=== PATIENT | male | born 1950 | race Caucasian/White ===

== ENCOUNTER → 2017-01-27 | Outpatient (CLI) | payer OTHER ==
[~2017-01-27] MED LIST: ATOR-22 PO; OMEP40CA PO
--- NOTE | 2017-01-27 09:38 | DIAGNOSTIC IMAGING REPORT ---
ABDOMINAL AORTIC ULTRASOUND CLINICAL HISTORY: AORTIC ANEURYSM COMPARISON STUDY: 01/25/2016 FINDINGS: There is an infrarenal abdominal aortic aneurysm measuring 3.5 x 3.5 cm in AP and transverse diameter. This remains unchanged in size when compared the preceding study. There is no evidence of aneurysmal iliac dilatation. IMPRESSION: No significant change in the size of the infrarenal abdominal aortic aneurysm which currently measures 3.5 cm in diameter Electronically signed by: Polo Paniagua M.D. 01/27/2017 9:36 AM Dictated Date/Time: 01/27/2017 9:35 AM
== END | disposition home or self-care (01) ==
LOC: C.ULTR 08:39
PROVIDERS: ATTEND Internal Medicine Critical Care Medicine
DX: I71.4 Abdominal aortic aneurysm, without rupture (principal)

== ENCOUNTER 2021-06-12 11:48 | Inpatient (IN) ==
[2021-06-12 12:56] LABS: Basophils # (auto) 0.02 K/uL (0-0.2); Basophils % (auto) 0.3 %; Eosinophils # (auto) 0.14 K/uL (0-0.5); Hematocrit (blood only) 45.4 % (42-52); Hemoglobin 15.3 g/dL (14.0-18.0); Immature Granulocytes # (auto) 0.01 K/uL (0.00-0.02); Immature Granulocytes % (auto) 0.1 %; Lymphocytes # (auto) 1.67 K/uL (1.2-3.4); Lymphocytes % (auto) 23.4 %; Mean Corpuscular Hemoglobin 35.3 pg (25-34); Mean Corpuscular Hgb Conc 33.7 g/dL (32-36); Mean Corpuscular Volume 104.8 fL (80-100); Mean Platelet Volume 9.6 fL (7.4-10.4); Monocytes # (auto) 0.63 K/uL (0.11-0.59); Monocytes % (auto) 8.8 %; Neutrophils # (auto) 4.66 K/uL (1.4-6.5); Neutrophils % (auto) 65.4 %; Platelet Count 125 K/uL (130-400); RDW Coefficient of Variation 15.5 % (11.5-14.5); Red Blood Count 4.33 M/uL (4.7-6.1); White Blood Count 7.13 K/uL (4.8-10.8)
[2021-06-12 13:11] LABS: Albumin Level 3.2 gm/dl (3.4-5.0); BUN Creatinine Ratio 19.3 (10-20); Calcium 8.5 mg/dl (8.5-10.1); Creatinine Clr Calc Pharmacy 46.5 ml/min; Est GFR (African American) 58.9 ml/min; Est GFR (Non-African American) 50.8 ml/min; Potassium 4.5 mmol/L (3.5-5.1)
--- NOTE | 2021-06-12 13:23 | XRay Report ---
XR chest 1V portable CLINICAL HISTORY: Dyspnea. Increasing shortness of breath since bronchoscopy yesterday. COMPARISON STUDY: No previous studies for comparison. TECHNIQUE: 1 view of the chest FINDINGS: Single frontal view of the chest demonstrates the cardiomediastinal silhouette to be within normal li mits. There is a decreased inspiratory effort with elevation of the hemidiaphragms and crowding of th e bronchovascular markings at the lung bases and centrally. There is no evidence for pneumothorax. Th e lungs are clear of alveolar opacities. There is no evidence for pleural effusion. There is no evide nce for vascular congestion. There is no acute osseous pathology. IMPRESSION: There is a decreased inspiratory effort with otherwise no acute chest disease. ACT 112: Negative or not required by law. Electronically signed by: Tony Mejia M.D. 06/12/2021 1:21 PM
[2021-06-12] MEDS ORDERED: ALBUT/IPRATROP 3MG/0.5MG NEB 3 ML VIAL NEB STA (13:28)
[2021-06-12] MEDS ORDERED: methylPREDNISolone 125 MG/2 ML VIAL IV STA (13:28)
[2021-06-12 13:30] LABS: Albumin Globulin Ratio 0.8 (0.9-2); Bilirubin,Total 0.8 mg/dl (0.2-1); Total Protein 7.2 gm/dl (6.4-8.2); Troponin I 0.05 ng/ml (0-0.045)
--- NOTE | 2021-06-12 13:31 | Electrocardiogram Report ---
Test Reason : Blood Pressure : / mmHG Vent. Rate : 072 BPM Atrial Rate : 072 BPM P-R Int : 174 ms QRS Dur : 090 ms QT Int : 436 ms P-R-T Axes : 067 -21 097 degrees QTc Int : 477 ms Normal sinus rhythm Possible Left atrial enlargement Prolonged QT Abnormal ECG No previous ECGs available Confirmed by Rafael White ([id number]) on 06/12/2021 1:31:10 PM Referred By: [facility] Confirmed By:Christopher White
[2021-06-12] MEDS ORDERED: OPTIRAY 320 125ml IV ONE (15:09)
--- NOTE | 2021-06-12 15:17 | History & Physical Report ---
Date of Service June 12, 2021 Assessment & Plan (1) Acute and chronic respiratory failure with hypoxia: Plan: Patient with increased oxygen requirement since undergoing EBUS yesterday for left upper lobe nodule that is suspicious for bronchogenic carcinoma He does have crackles on examination is requiring 9 L over his usual 4 L at home of O2 CT angiogram negative for PE or pneumonia, but does show reflux of contrast on the right side -Could be acute exacerbation of COPD although not a significant amount of wheezing -Admit to medical floor with telemetry -Continue IV Solu-Medrol 60 mg IV every 12 hours -Continue scheduled DuoNebs every 8 hours Start azithromycin x5-day course for COPD exacerbation -Give 1 dose of IV Lasix now and see if diuresis helps -Continue to follow clinically -No need for pulmonology consult at this point unless worsens. (2) Chronic obstructive pulmonary disease: Plan: As above with acute exacerbation of COPD Treatment as above Continue home maintenance inhaler (3) Pulmonary nodule: Plan: Now status post biopsy at [facility] in [place] on 06/11 He will follow-up for results of that (4) Severe pulmonary hypertension: Plan: Noted On chronic O2 therapy Diuresed with IV Lasix today (5) GERD (gastroesophageal reflux disease): Plan: continue pepcid (6) Essential tremor: Plan: In the right hand Not currently on medication for this (7) Hyperlipidemia: Plan: Continue statin (8) Carotid stenosis: Plan: Near complete occlusion of LICA Asymptomatic Continue aspirin, Plavix, and statin (9) BPH (benign prostatic hyperplasia): Plan: No acute issues (10) Aortic aneurysm: Plan: 3.9 x 3.8 cm infrarenal AAA Follow-up as an outpatient Plan: DVT prophylaxis-SCDs only given recent biopsy Disposition-admit to medical floor with telemetry History of Present Illness Chief Complaint: Shortness of breath, hypoxia Primary Care Provider: [facility] This patient is a 71-year-old male with a history of COPD with chronic bronchitis mixed obstructive and restrictive lung disease, pulmonary nodule, severe pulmonary hypertension, chronic respiratory failure with hypoxia on 4 L nasal cannula, ex-smoker, GERD, dyslipidemia, and BPH who presents to the ER with worsening shortness of breath and hypoxia to pulse ox 77% when he was seen by his PCP in his office this morning He just underwent a biopsy of a lung nodule at [facility] yesterday and reports that ever since he returned home yesterday, he has been having trouble keeping his pulse ox above 85-88%. The highest his home oxygen can go is 5 L and he kept it there until this morning when he came here and was increased to 9 L oxygen mask when I saw him. He denies any chest pain. He had a scant amount of hemoptysis yesterday after the procedure but none since then. He is not really coughing up much sputum. He denies any fevers or chills. No lightheadedness. No nausea or vomiting, no abdominal pains, no diarrhea or constipation. His abdomen does not feel distended and he is not noticed any increased swelling in his legs. In the ER, he had a macrocytosis and mild thrombocytopenia on CBC, mild increase in BUN and creatinine to 26 and 1.37, troponin elevated at 0.05, proBNP elevated at 4352, and a chest x-ray which showed some decreased inspiratory effort but no acute chest disease. A Covid test was negative, and a CT angiogram of the chest was negative for pulmonary emboli, showed moderate dilatation of the right heart chambers with IVC and hepatic veins with reflux of contrast reflecting elevated right heart pressures, trace bilateral pleural effusions, trace perihepatic ascites, and a 2 cm spiculated solid left upper lobe nodule similar to prior CT several weeks ago consistent with bronchogenic carcinoma. There was no pneumothorax. He was given IV Solu-Medrol and a DuoNeb and had some improvement after being placed on 9 L oxygen. He will be admitted for acute on chronic respiratory failure with hypoxia likely secondary to acute exacerbation of COPD. Allergies Allergy/AdvReac Type Severity Reaction Status Date / Time No Known Allergies Allergy Verified 06/12/21 14:36 Home Medications Medication Instructions Recorded Confirmed Type aspirin 81 mg tablet,delayed 81 mg PO QAM 05/26/18 06/12/21 History release clopidogrel 75 mg tablet 75 mg PO QAM 11/30/20 06/12/21 History famotidine 20 mg tablet 20 mg PO QAM 11/30/20 06/12/21 History tiotropium 2.5 mcg-olodaterol 2.5 2 puff INHALATION DAILY #3 inhaler 01/09/21 06/12/21 Rx mcg/actuation mist for inhalation (Stiolto Respimat) ipratropium 0.5 mg-albuterol 3 mg 3 ml INHALATION Q8H PRN #180 ml 02/21/21 06/12/21 Rx (2.5 mg base)/3 mL nebulization soln atorvastatin 40 mg tablet 40 mg PO QAM 02/28/21 06/12/21 History albuterol sulfate 90 mcg/actuation 2 puff INHALATION Q6H PRN #18 g 05/25/21 06/12/21 Rx aerosol inhaler budesonide 0.25 mg/2 mL suspension 0.25 mg INHALATION BID PRN 06/12/21 06/12/21 History for nebulization Past Med/Surg History Medical History Acute respiratory failure with hypoxia Aortic aneurysm Stable No 3.7 cm infrarenal AAA per 04/10/20 CT Abd/Pelvix BPH (benign prostatic hyperplasia) BPH NOS w ur obs/LUTS Carotid stenosis Critical (near occlusion) stenosis of the proximal LICA per 03/13/21 carotid doppler > reason for plavix per pt Chronic bronchitis Chronic obstructive pulmonary disease Chronic respiratory failure with hypoxia COPD with emphysema Essential tremor Right hand Ex-smoker Exertional shortness of breath GERD (gastroesophageal reflux disease) Hiatal hernia History of colon polyps History of migraine Hx of skin cancer, basal cell Hyperlipidemia Hypersomnia Jaw clicking No locking Lung nodule Reason for upcoming bronchoscopy Mixed restrictive and obstructive lung disease On home oxygen therapy 4L O2 continuous Pulmonary hypertension Severe pulmonary hypertension Per 01/2021 echo, RVSP 84mmhg Urinary incontinence Surgical History History of cataract surgery Right History of colonoscopy History of esophagogastroduodenoscopy (EGD) History of tooth extraction Family History Mother Family history of diabetes mellitus Grandmother No problems noted. 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 Beliefs That Will Affect Care: None marital status: Current Living Situation: Spouse current occupational status: retired Other Information That Helps Us Care for You: No Feels Safe at Home: Yes Safety Concerns: Feels Safe At This Time caffeine: Yes Physical Activity Frequency: 3-4 Times per Week Physical Activity Frequency Comment: Treadmill walks Assistive Devices: Oxygen - Continuous Review of Systems Review of Systems: All systems reviewed & are unremarkable except as noted in HPI & below Physical Exam Constitutional: WD/WN, vitals as above Eyes: PERRL, conjunctivae normal, anicteric sclerae ENMT: external ear and nose normal, oropharynx normal Neck: trachea midline, no thyromegaly Respiratory: normal respiratory effort; no cough Auscultation: + crackles (Bibasilar); no rhonchi and no wheezes Cardiovascular: RRR, no murmur, no edema Chest (Breasts): Chest: normal inspection of chest Gastrointestinal (Abdomen): normal bowel sounds, soft, nontender, no hepatosplenomegaly Musculoskeletal: Extremities: extremities normal to inspection; no cyanosis and no clubbing Skin: no rashes, warm and dry Neurologic: moves all extremities and awake; no focal motor deficits Psychiatric: A+Ox3, euthymic affect Lymphatic: no lymphedema Results & Data Results & Data ([facility]) Vital Signs (Past 12 Hours) Vital Signs Temp Pulse Pulse Resp BP BP Pulse Ox 06/12/21 13:37 76 16 94 06/12/21 12:29 70 21 113/78 95 06/12/21 12:13 80 L 06/12/21 12:03 36.0 C L 99 H 18 117/68 80 L Laboratory Results 06/12/21 06/12/21 Range/Units 12:42 12:42 WBC 7.13 (4.8-10.8) K/uL RBC 4.33 L (4.7-6.1) M/uL Hgb 15.3 (14.0-18.0) g/dL Hct 45.4 (42-52) % MCV 104.8 H (80-100) fL MCH 35.3 H (25-34) pg MCHC 33.7 (32-36) g/dL RDW Std Deviation 60.0 H (36.4-46.3) fL RDW Coeff of Megan 15.5 H (11.5-14.5) % Plt Count 125 L (130-400) K/uL MPV 9.6 (7.4-10.4) fL Immature Gran % (Auto) 0.1 % Neut % (Auto) 65.4 % Lymph % (Auto) 23.4 % [place] % (Auto) 8.8 % Eos % (Auto) 2.0 % Baso % (Auto) 0.3 % Neut # (Auto) 4.66 (1.4-6.5) K/uL Lymph # (Auto) 1.67 (1.2-3.4) K/uL Amite # (Auto) 0.63 H (0.11-0.59) K/uL Eos # (Auto) 0.14 (0-0.5) K/uL Baso # (Auto) 0.02 (0-0.2) K/uL Immature Gran # (Auto) 0.01 (0.00-0.02) K/uL Sodium 141 (136-145) mmol/L Potassium 4.5 (3.5-5.1) mmol/L Chloride 110 H (98-107) mmol/L Carbon Dioxide 24 (21-32) mmol/L Anion Gap 7.0 (3-11) BUN 26 H (7-18) mg/dl Creatinine 1.37 (0.6-1.4) mg/dl Est Cr Clr Drug Dosing 46.5 ml/min Est GFR ( Amer) 58.9 ml/min Est GFR (Non-Af Amer) 50.8 ml/min BUN/Creatinine Ratio 19.3 (10-20) Glucose 100 H (70-99) mg/dl Calcium 8.5 (8.5-10.1) mg/dl Total Bilirubin 0.8 (0.2-1) mg/dl AST 29 (15-37) U/L ALT 24 (12-78) U/L Alkaline Phosphatase 107 (45-117) U/L Troponin I 0.050 H* (0-0.045) ng/ml NT-Pro-B Natriuret Pep 4352 H (0-900) pg/ml Total Protein 7.2 (6.4-8.2) gm/dl Albumin 3.2 L (3.4-5.0) gm/dl Globulin 4.0 (2.5-4.0) gm/dl Albumin/Globulin Ratio 0.8 L (0.9-2) Diagnostic Findings Chest x-ray image personally reviewed by me and agree with the following report: Chest X-Ray 06/12/21 12:42 XR chest 1V portable CLINICAL HISTORY: Dyspnea. Increasing shortness of breath since bronchoscopy yesterday. COMPARISON STUDY: No previous studies for comparison. TECHNIQUE: 1 view of the chest FINDINGS: Single frontal view of the chest demonstrates the cardiomediastinal silhouette to be within normal limits. There is a decreased inspiratory effort with elevation of the hemidiaphragms and crowding of the bronchovascular markings at the lung bases and centrally. There is no evidence for pneumothorax. The lungs are clear of alveolar opacities. There is no evidence for pleural effusion. There is no evidence for vascular congestion. There is no acute osseous pathology. IMPRESSION: There is a decreased inspiratory effort with otherwise no acute chest disease. ACT 112: Negative or not required by law. Electronically signed by: Tony Mejia M.D. 06/12/2021 1:21 PM ECG Additional Comments: ECG on 06/12/2021 at 1229 with normal sinus rhythm, rate 72, anterolateral ST and T wave abnormality indicating possible anterolateral ischemia which looks almost identical to ECG from 02/21/2021 that is scanned into the chart from the pulmonology office Code Status & VTE Plan Code Status Full code VTE Prophylaxis Plan VTE Prophylaxis will be ordered: Yes PG Care Time/CCT Total # of Minutes Spent Total Time Spent with Patient: Total time spent is greater than 50% in coordination of care (as documented) at patient's floor/unit and/or counseling patient: Coding Level of Care Code 01825 Initial Inpt Care Lvl 3 Diagnoses Pulmonary nodule R91.1 Severe pulmonary hypertension I27.20 GERD (gastroesophageal reflux disease) K21.9 Chronic obstructive pulmonary disease J44.9 Essential tremor G25.0 Hyperlipidemia E78.5 Carotid stenosis I65.29 BPH (benign prostatic hyperplasia) N40.0 Aortic aneurysm I71.9 Acute and chronic respiratory failure with hypoxia J96.21
[2021-06-12] MEDS ORDERED: AZITHROMYCIN 500 MG in DEXTROSE 5% 250 ML IV STA (15:39)
--- NOTE | 2021-06-12 15:46 | CT Scan Report ---
CT ANGIOGRAPHY OF THE CHEST, PULMONARY EMBOLUS PROTOCOL CLINICAL HISTORY: Shortness of breath. Hypoxia. COMPARISON STUDY: Chest CT March 01, 2021. PET/CT March 21, 2021. Chest CT May 16, 2021. [facility] radiograph performed earlier today. TECHNIQUE: Following IV administration of 1 mL of Optiray, helical axial images of the chest were obt ained utilizing the pulmonary embolus protocol. Maximal intensity projections and sagittal and coron al reformats were viewed on an independent 3D workstation. IV contrast was administered without comp lication. Automated exposure control was utilized for the study. A dose lowering technique was util ized adhering to the principles of ALARA. CT DOSE: 344.36 mGy.cm FINDINGS: No pulmonary emboli are identified. Moderate dilatation of the right heart chambers is not ed with dilatation of the IVC and hepatic veins with reflux of contrast. There is no pericardial effu elizabeth. Several mildly enlarged mediastinal lymph nodes are unchanged since CT of May 16, 2021. Ind ex AP window lymph node measures 1.6 x 1.2 cm. Moderate coronary artery calcification is again noted. There are several calcified mediastinal lymph nodes. Calcified granulomas within the lungs are noted . No pneumothorax is present. There are trace bilateral pleural effusions. Upper lobe predominant emp hysema is again noted. A 2 cm spiculated solid left upper lobe nodule is similar to CT of May 16, 2021. This is increased in size since CT of March 01, 2021. A few additional tiny pulmonary nodules are also unchanged and prior CT. These remain indeterminate. Mild ground glass opacities within the lungs are unchanged since prior exam. These are probably chronic. No suspicious lesions are identifie d within visualized portions of the bony thorax. There are calcified granulomas within the spleen. Th ere is trace perihepatic ascites. IMPRESSION: 1. No pulmonary emboli identified. 2. 2 cm spiculated solid left upper lobe nodule which is similar to CT of May 16, 2021. This has increased in size since chest CT of February 19, 2021. This is consistent with bronchogenic carcinoma. 3. Moderate dilatation of the right heart chambers, IVC and hepatic veins with reflux of contrast. Th is may reflect elevated right heart pressures. 4. Emphysema. 5. Trace bilateral pleural effusions. Trace perihepatic ascites. 6. No change in groundglass opacities which are likely chronic. ACT 112: Negative or not required by law. Electronically signed by: Hernandez Wdae M.D. 06/12/2021 3:44 PM
[2021-06-12] MEDS ORDERED: FUROSEMIDE INJ 20 MG/2 ML VIAL IV ONE (15:56)
--- NOTE | 2021-06-12 16:56 | Emergency Department Note ---
Impression & Plan SOB (shortness of breath), Chronic obstructive pulmonary disease, Hypoxia, Mass of upper lobe of left lung, Elevated troponin, Abnormal ECG ED Provider Note INFORMANT: Patient and ED PROVIDER(S): Jules Ricardo MD CHIEF COMPLAINT: Shortness of breath PLAN: Disposition: Admitted Condition: Good Outpatient prescription management: none Referral: None MEDICAL DECISION MAKING: Patient presented to the emergency department because of shortness of breath and increasing oxygen demand. A work-up was initiated. The patient was treated with duo neb and Solu-Medrol. The patient was doing much better with higher flow supplemental oxygen. He was found to have a mildly elevated troponin and BNP. His ECG is abnormal. No prior for comparison. I did check the epic records as he just had a procedure done. The patient had unremarkable chest x- ray. His CT scan of the chest revealed his known lung mass. No pulmonary bullae were noted. Consultation was made with the admitting hospitalist service, Dr. Gustafson. Patient was evaluated in the ER and admitted for further management. Triage Nursing notes reviewed and agree them. Vital Signs: reviewed and remarkable for no significant abnormalities Differential diagnosis: Reactive airway disease, pneumonia, pneumothorax, COPD, CHF, infections, cardiac ischemia, pulmonary embolism, musculoskeletal, gastrointestinal, as well as other pathologies. Diagnostics interpreted by me: ECG: Twelve-lead ECG reveals a normal sinus rhythm at 72 bpm. There is anterolateral T wave inversions. Prolonged QT. No prior for comparison. No ST elevation. Cardiac Monitoring: Cardiac monitoring ordered by me: The patient was placed on continuous cardiac monitoring and observed. It revealed a normal sinus rhythm at 79 beats per minute without ectopy or evidence of dysrhythmia. Imaging studies: Chest x-ray. Findings: A chest x-ray was performed and revealed no pneumothorax, effusion, infiltrate, pulmonary edema, free air under the diaphragm, or wide mediastinum. Impression: No acute disease. CT PE study negative for pulmonary embolus. Spiculated mass noted in the left upper lobe. No pneumothorax. I refer you to the EMR for further details. HPI: The patient is a 71year old male who presents to the Emergency Room with complaints of shortness of breath. This started yesterday and is slowly progressing. The patient had a biopsy done at [facility] due to a mass in the left upper lobe. The patient states that after the procedure he slowly began to have problems with feeling more and more short of breath. This morning he went to his PCPs office and noted that his oxygen saturation with his supplemental oxygen was 77%. His oxygen was increased and he was sent to the ER for further management. The patient also notes the following associated symptoms, wheezing. The patient has taken no medication for relieving factors. Current pain is rated as 0/10. Pt denies LOC, headache, fevers, chills, diaphoresis, visual changes, neck pain, chest pain, nausea, vomiting, abdominal pain, back pain, melena, hematochezia, urinary symptoms, numbness, weakness, lymphadenopathy, rash, or other complaints. ROS: See above HPI for pertinent positives & negatives. A total of 10 systems reviewed and were otherwise negative. PAST MEDICAL HISTORY:See Below , COPD PAST SURGICAL HISTORY:See Below, FAMILY HISTORY:See Below SOCIAL HISTORY:See Below, HOME MEDICATIONS:See Below ALLERGIES:See Below VITALS:See Below PHYSICAL EXAMINATION: GENERAL: Awake, alert, dyspneic-appearing, in no distress HENT: Normocephalic, atraumatic. Oropharynx unremarkable. EYES: Normal conjunctiva. Sclera non-icteric. NECK: Inspection normal. Non-tender. Supple. No nuchal rigidity. FROM. No masses. Trachea midline. RESPIRATORY: Diminished but equal.. No wheezes. No rales. Increased respiratory effort. CARDIAC: Normal rate. Normal rhythm. No murmurs. No rubs. Extremities warm and well perfused. Pulses equal. No JVD. GI: Soft, non-distended. No tenderness to palpation. No rebound or guarding. No masses. RECTAL: Deferred. MUSCULOSKELETAL: Atraumatic. Chest examination reveals no tenderness. The back is symmetrical on inspection without obvious abnormality. There is no CVA tenderness to palpation. No joint edema. LOWER EXTREMITIES: Calves are equal size bilaterally and non-tender. Trace edema. No discoloration. NEURO: Normal sensorium. No sensory or motor deficits noted. SKIN: No rash or jaundice noted. CRITICAL CARE: I have personally spent greater than 36 minutes of critical care time in the direct management of this patient. This includes bedside care, interpretation of diagnostic studies, and testing, discussion with consultants, patient, and family members, and other required patient management activities. These minutes are in excess of all separately billable procedures. Jules Ricardo MD Past Med/Surg History Medical History Acute respiratory failure with hypoxia Aortic aneurysm Stable No 3.7 cm infrarenal AAA per 04/10/20 CT Abd/Pelvix BPH (benign prostatic hyperplasia) BPH NOS w ur obs/LUTS Carotid stenosis Critical (near occlusion) stenosis of the proximal LICA per 03/13/21 carotid doppler > reason for plavix per pt Chronic bronchitis Chronic obstructive pulmonary disease Chronic respiratory failure with hypoxia COPD with emphysema Essential tremor Right hand Ex-smoker Exertional shortness of breath GERD (gastroesophageal reflux disease) Hiatal hernia History of colon polyps History of migraine Hx of skin cancer, basal cell Hyperlipidemia Hypersomnia Jaw clicking No locking Lung nodule Reason for upcoming bronchoscopy Mixed restrictive and obstructive lung disease On home oxygen therapy 4L O2 continuous Pulmonary hypertension Severe pulmonary hypertension Per 01/2021 echo, RVSP 84mmhg Urinary incontinence Surgical History History of cataract surgery Right History of colonoscopy History of esophagogastroduodenoscopy (EGD) History of tooth extraction Family History Mother Family history of diabetes mellitus Grandmother No problems noted. Grandmother (Maternal) Family hx of colon cancer Other No family history of adverse response to anesthesia Social History Smoking Status: Former smoker Tobacco Type: Cigarettes packs per day: 1; Years Smoked: 2,007; Number of Years Since Quit: 14; Second Hand Exposure: Yes ( A CHILD); Hx Alcohol Use: Yes Alcohol type: beer Preferred Language: Maldivian Communication Ability: Effective Measurement Specialist Required: No Beliefs That Will Affect Care: None marital status: Current Living Situation: Spouse current occupational status: retired Feels Safe at Home: Yes caffeine: Yes Physical Activity Frequency: 3-4 Times per Week Physical Activity Frequency Comment: Treadmill walks Assistive Devices: Denture - Upper, Glasses, Oxygen - Continuous and Walker Allergies Allergies Allergy/AdvReac Type Severity Reaction Status Date / Time No Known Allergies Allergy Verified 06/12/21 14:36 Home Meds Home Medications Medication Instructions Recorded Confirmed aspirin 81 mg tablet,delayed 81 mg PO QAM 05/26/18 06/12/21 release clopidogrel 75 mg tablet 75 mg PO QAM 11/30/20 06/12/21 famotidine 20 mg tablet 20 mg PO QAM 11/30/20 06/12/21 atorvastatin 40 mg tablet 40 mg PO QAM 02/28/21 06/12/21 budesonide 0.25 mg/2 mL suspension 0.25 mg INHALATION BID PRN 06/12/21 06/12/21 for nebulization Previous Rx's Medication Instructions Recorded tiotropium 2.5 mcg-olodaterol 2.5 2 puff INHALATION DAILY #3 inhaler 01/09/21 mcg/actuation mist for inhalation (Stiolto Respimat) ipratropium 0.5 mg-albuterol 3 mg 3 ml INHALATION Q8H PRN #180 ml 02/21/21 (2.5 mg base)/3 mL nebulization soln albuterol sulfate 90 mcg/actuation 2 puff INHALATION Q6H PRN #18 g 05/25/21 aerosol inhaler Results & Data (ED) Vital Signs Vital Signs - 24 hr 06/12/21 12:03 06/12/21 12:13 06/12/21 12:29 Temperature 36.0 C L Temperature Source Temporal Artery Scan Pulse Rate 99 H Pulse Rate [Radial] 70 Pulse Rate from SpO2 Sensor Respiratory Rate 18 21 Respiratory Effort / Characteristics Blood Pressure 117/68 Blood Pressure [Left Arm] 113/78 Blood Pressure Mean 84 Blood Pressure Mean [Left Arm] 89 Blood Pressure Position [Left Arm] Lying Pulse Oximetry 80 L 80 L 95 Oxygen Delivery Method Nasal Cannula Nasal Cannula Nasal Cannula Oxygen Flow Rate 6 6 6 Sepsis Recent Fever Within 48 Hours No Sepsis New/Unexplained Change in Mental Status N/A Sepsis Action Taken by Nursing No Action Required 06/12/21 12:30 06/12/21 13:00 06/12/21 13:30 Temperature Temperature Source Pulse Rate 68 70 73 Pulse Rate [Radial] Pulse Rate from SpO2 Sensor 69 73 Respiratory Rate 19 19 12 Respiratory Effort / Characteristics Blood Pressure 100/69 113/77 Blood Pressure [Left Arm] Blood Pressure Mean 79 89 Blood Pressure Mean [Left Arm] Blood Pressure Position [Left Arm] Pulse Oximetry 95 94 Oxygen Delivery Method Nasal Cannula Oxygen Flow Rate 6 Sepsis Recent Fever Within 48 Hours Sepsis New/Unexplained Change in Mental Status Sepsis Action Taken by Nursing 06/12/21 13:37 06/12/21 14:00 06/12/21 14:30 Temperature Temperature Source Pulse Rate 68 86 Pulse Rate [Radial] 76 Pulse Rate from SpO2 Sensor 68 86 Respiratory Rate 16 16 16 Respiratory Effort / Characteristics Non-Labored Spontaneous Blood Pressure 117/72 142/77 H Blood Pressure [Left Arm] Blood Pressure Mean 87 98 Blood Pressure Mean [Left Arm] Blood Pressure Position [Left Arm] Pulse Oximetry 94 90 79 L Oxygen Delivery Method Nasal Cannula Nasal Cannula Nasal Cannula Oxygen Flow Rate 5 6 6 Sepsis Recent Fever Within 48 Hours Sepsis New/Unexplained Change in Mental Status Sepsis Action Taken by Nursing 06/12/21 15:16 06/12/21 15:30 06/12/21 16:00 Temperature Temperature Source Pulse Rate 79 73 79 Pulse Rate [Radial] Pulse Rate from SpO2 Sensor 79 73 79 Respiratory Rate 5 L 15 18 Respiratory Effort / Characteristics Blood Pressure 130/87 Blood Pressure [Left Arm] Blood Pressure Mean 101 Blood Pressure Mean [Left Arm] Blood Pressure Position [Left Arm] Pulse Oximetry 89 L 93 90 Oxygen Delivery Method Oxymask Oxymask Oxymask Oxygen Flow Rate 10 10 10 Sepsis Recent Fever Within 48 Hours Sepsis New/Unexplained Change in Mental Status Sepsis Action Taken by Nursing 06/12/21 16:30 Temperature Temperature Source Pulse Rate Pulse Rate [Radial] Pulse Rate from SpO2 Sensor 78 Respiratory Rate Respiratory Effort / Characteristics Blood Pressure 142/89 H Blood Pressure [Left Arm] Blood Pressure Mean 106 Blood Pressure Mean [Left Arm] Blood Pressure Position [Left Arm] Pulse Oximetry 92 Oxygen Delivery Method Oxymask Oxygen Flow Rate 10 Sepsis Recent Fever Within 48 Hours Sepsis New/Unexplained Change in Mental Status Sepsis Action Taken by Nursing Laboratory Data Result diagrams: 06/12/21 12:42 06/12/21 12:42 Lab Results 06/12/21 06/12/21 06/12/21 Range/Units 12:42 12:42 15:16 WBC 7.13 (4.8-10.8) K/uL RBC 4.33 L (4.7-6.1) M/uL Hgb 15.3 (14.0-18.0) g/dL Hct 45.4 (42-52) % MCV 104.8 H (80-100) fL MCH 35.3 H (25-34) pg MCHC 33.7 (32-36) g/dL RDW Std Deviation 60.0 H (36.4-46.3) fL RDW Coeff of Megan 15.5 H (11.5-14.5) % Plt Count 125 L (130-400) K/uL MPV 9.6 (7.4-10.4) fL Immature Gran % (Auto) 0.1 % Neut % (Auto) 65.4 % Lymph % (Auto) 23.4 % Gove % (Auto) 8.8 % Eos % (Auto) 2.0 % Baso % (Auto) 0.3 % Neut # (Auto) 4.66 (1.4-6.5) K/uL Lymph # (Auto) 1.67 (1.2-3.4) K/uL Gove # (Auto) 0.63 H (0.11-0.59) K/uL Eos # (Auto) 0.14 (0-0.5) K/uL Baso # (Auto) 0.02 (0-0.2) K/uL Immature Gran # (Auto) 0.01 (0.00-0.02) K/uL Sodium 141 (136-145) mmol/L Potassium 4.5 (3.5-5.1) mmol/L Chloride 110 H (98-107) mmol/L Carbon Dioxide 24 (21-32) mmol/L Anion Gap 7.0 (3-11) BUN 26 H (7-18) mg/dl Creatinine 1.37 (0.6-1.4) mg/dl Est Cr Clr Drug Dosing 46.5 ml/min Est GFR ( Amer) 58.9 ml/min Est GFR (Non-Af Amer) 50.8 ml/min BUN/Creatinine Ratio 19.3 (10-20) Glucose 100 H (70-99) mg/dl Calcium 8.5 (8.5-10.1) mg/dl Total Bilirubin 0.8 (0.2-1) mg/dl AST 29 (15-37) U/L ALT 24 (12-78) U/L Alkaline Phosphatase 107 (45-117) U/L Troponin I 0.050 H* (0-0.045) ng/ml NT-Pro-B Natriuret Pep 4352 H (0-900) pg/ml Total Protein 7.2 (6.4-8.2) gm/dl Albumin 3.2 L (3.4-5.0) gm/dl Globulin 4.0 (2.5-4.0) gm/dl Albumin/Globulin Ratio 0.8 L (0.9-2) SARS-CoV-2, RNA, NAAT NEGATIVE (NEGATIVE) Administered Medications Discontinued Medications Albuterol (Albut/Ipratrop 3mg/0.5mg Neb 3 Ml Vial) 3 ml NEB NOW STA Stop: 06/12/21 13:29 Last Admin: 06/12/21 13:36 Dose: 3 ml Documented by: [id number] Furosemide (Furosemide Inj 20 Mg/2 Ml Vial) 20 mg IV ONE ONE Stop: 06/12/21 15:57 Last Admin: 06/12/21 16:26 Dose: 20 mg Documented by: [id number] Azithromycin 500 mg/ Dextrose 255 mls @ 127.5 mls/hr IV NOW STA Stop: 06/12/21 17:38 Last Admin: 06/12/21 16:28 Dose: 127.5 mls/hr Documented by: [id number] Ioversol (Optiray 320 125ml) 120 ml IV ONCE ONE Stop: 06/12/21 15:10 Last Admin: 06/12/21 15:10 Dose: 120 ml Documented by: [id number] Methylprednisolone (Methylprednisolone 125 Mg/2 Ml Vial) 125 mg IV NOW STA Stop: 06/12/21 13:29 Last Admin: 06/12/21 13:36 Dose: 125 mg Documented by: [id number] Imaging Data Radiologist's Impression: Chest X-Ray 06/12/21 12:42 XR chest 1V portable CLINICAL HISTORY: Dyspnea. Increasing shortness of breath since bronchoscopy yesterday. COMPARISON STUDY: No previous studies for comparison. TECHNIQUE: 1 view of the chest FINDINGS: Single frontal view of the chest demonstrates the cardiomediastinal silhouette to be within normal limits. There is a decreased inspiratory effort with elevation of the hemidiaphragms and crowding of the bronchovascular markings at the lung bases and centrally. There is no evidence for pneumothorax. The lungs are clear of alveolar opacities. There is no evidence for pleural effusion. There is no evidence for vascular congestion. There is no acute osseous pathology. IMPRESSION: There is a decreased inspiratory effort with otherwise no acute ch est disease. ACT 112: Negative or not required by law. Electronically signed by: Tony Mejia M.D. 06/12/2021 1:21 PM Chest CTA 06/12/21 13:45 CT ANGIOGRAPHY OF THE CHEST, PULMONARY EMBOLUS PROTOCOL CLINICAL HISTORY: Shortness of breath. Hypoxia. COMPARISON STUDY: Chest CT March 01, 2021. PET/CT March 21, 2021. Chest CT May 16, 2021. Chest radiograph performed earlier today. TECHNIQUE: Following IV administration of 1 mL of Optiray, helical axial images of the chest were obtained utilizing the pulmonary embolus protocol. Maximal intensity projections and sagittal and coronal reformats were viewed on an independent 3D workstation. IV contrast was administered without complication. Automated exposure control was utilized for the study. A dose lowering technique was utilized adhering to the principles of ALARA. CT DOSE: 344.36 mGy.cm FINDINGS: No pulmonary emboli are identified. Moderate dilatation of the right heart chambers is noted with dilatation of the IVC and hepatic veins with reflux of contrast. There is no pericardial effusion. Several mildly enlarged mediastinal lymph nodes are unchanged since CT of May 16, 2021. Index AP window lymph node measures 1.6 x 1.2 cm. Moderate coronary artery calcification is again noted. There are several calcified mediastinal lymph nodes. Calcified granulomas within the lungs are noted. No pneumothorax is present. There are trace bilateral pleural effusions. Upper lobe predominant emphysema is again no michael. A 2 cm spiculated solid left upper lobe nodule is similar to CT of May 16, 2021. This is increased in size since CT of March 01, 2021. A few additional tiny pulmonary nodules are also unchanged and prior CT. These remain indeterminate. Mild ground glass opacities within the lungs are unchanged since prior exam. These are probably chronic. No suspicious lesions are identified within visualized portions of the bony thorax. There are calcified granulomas within the spleen. There is trace perihepatic ascites. IMPRESSION: 1. No pulmonary emboli identified. 2. 2 cm spiculated solid left upper lobe nodule which is similar to CT of May 16, 2021. This has increased in size since chest CT of February 19, 2021. This is consistent with bronchogenic carcinoma. 3. Moderate dilatation of the right heart chambers, IVC and hepatic veins with reflux of contrast. This may reflect elevated right heart pressures. 4. Emphysema. 5. Trace bilateral pleural effusions. Trace perihepatic ascites. 6. No change in groundglass opacities which are likely chronic. ACT 112: Negative or not required by law. Electronically signed by: Hernandez Wade M.D. 06/12/2021 3:44 PM Discharge Plan Visit Data Chief Complaint: Respiratory Problems Stated Complaint: RESPIRATORY PROBLEMS/SOB ED Provider: Jules Ricardo Discharge Problem: SOB (shortness of breath), Chronic obstructive pulmonary disease, Hypoxia, Mass of upper lobe of left lung, Elevated troponin, Abnormal ECG Forms Stand Alone Forms: [facility] [place] [employer] Prescriptions Prescriptions: No Action Stiolto Respimat 2.5-2.5 mcg/actuation mist 2 puff inhalation DAILY Qty: 3 RF: 1 albuterol sulfate 90 mcg/actuation HFA aerosol inhaler 2 puff inhalation Q6H PRN (Reason: Shortness Of Breath Or Wheezing) Qty: 18 RF: 3 famotidine 20 mg tablet 20 mg PO QAM RF: 0 clopidogrel 75 mg tablet 75 mg PO QAM RF: 0 ipratropium-albuterol 0.5 mg-3 mg(2.5 mg base)/3 mL solution for nebulization 3 ml inhalation Q8H PRN (Reason: shortness of breath or wheezing) Qty: 180 RF: 2 aspirin 81 mg Tablet,Delayed Release (Dr/Ec) 81 mg PO QAM RF: 0 atorvastatin 40 mg Tablet 40 mg PO QAM RF: 0 budesonide 0.25 mg/2 mL suspension for nebulization 0.25 mg inhalation BID PRN (Reason: Shortness Of Breath) RF: 0 Referrals [facility]errals: [facility] [Primary Care Provider] -
--- NOTE | 2021-06-12 17:32 | Electrocardiogram Report ---
Test Reason : Blood Pressure : / mmHG Vent. Rate : 079 BPM Atrial Rate : 079 BPM P-R Int : 178 ms QRS Dur : 084 ms QT Int : 398 ms P-R-T Axes : 073 -12 089 degrees QTc Int : 456 ms Poor data quality, interpretation may be adversely affected Normal sinus rhythm Left atrial enlargement Abnormal ECG No previous ECGs available Confirmed by Rafael White ([id number]) on 06/12/2021 5:32:31 PM Referred By: [facility] Confirmed By:Christopher White
[2021-06-12] MEDS ORDERED: ALBUT/IPRATROP 3MG/0.5MG NEB 3 ML VIAL INH SCH (19:20)
[2021-06-12] MEDS ORDERED: ACETAMINOPHEN 325 MG TAB PO PRN (19:20)
[2021-06-12] MEDS ORDERED: ONDANSETRON INJ 2 MG/ML 2 ML VIAL IV PRN (19:20)
[2021-06-12] MEDS: BUDESONIDE 0.25 MG/2 ML VIAL (PULMICORT) INH SCH (20:56)
[2021-06-12] MEDS: methylPREDNISolone 60 MG in SYRINGE 0 ML IV SCH (23:39)
[2021-06-13] MEDS: ALBUT/IPRATROP 3MG/0.5MG NEB 3 ML VIAL INH SCH ×3 (08:06→23:09)
[2021-06-13] MEDS: BUDESONIDE 0.25 MG/2 ML VIAL (PULMICORT) INH SCH ×2 (08:06→20:30)
[2021-06-13 09:14] LABS: Hemoglobin 15.9 g/dL (14.0-18.0); Immature Granulocytes # (auto) 0.02 K/uL (0.00-0.02); Immature Granulocytes % (auto) 0.2 %; Lymphocytes # (auto) 0.77 K/uL (1.2-3.4); Lymphocytes % (auto) 8.7 %; Mean Corpuscular Hemoglobin 35.1 pg (25-34); Mean Corpuscular Hgb Conc 33.8 g/dL (32-36); Mean Corpuscular Volume 103.8 fL (80-100); Mean Platelet Volume 10.1 fL (7.4-10.4); Monocytes # (auto) 0.24 K/uL (0.11-0.59); Monocytes % (auto) 2.7 %; Neutrophils # (auto) 7.85 K/uL (1.4-6.5); Neutrophils % (auto) 88.4 %; Platelet Count 128 K/uL (130-400); RDW Coefficient of Variation 15.1 % (11.5-14.5); RDW Standard Deviation 57.5 fL (36.4-46.3); Red Blood Count 4.53 M/uL (4.7-6.1); White Blood Count 8.88 K/uL (4.8-10.8)
[2021-06-13 09:40] LABS: BUN Creatinine Ratio 21.6 (10-20); Calcium 9.2 mg/dl (8.5-10.1); Creatinine Clr Calc Pharmacy 49.7 ml/min; Est GFR (African American) 56.9 ml/min; Est GFR (Non-African American) 49.1 ml/min; Potassium 4.4 mmol/L (3.5-5.1)
[2021-06-13] MEDS: FAMOTIDINE 20 MG TAB PO SCH (09:44)
[2021-06-13] MEDS: CLOPIDOGREL BISULFATE 75 MG TAB PO SCH (09:44)
[2021-06-13] MEDS: methylPREDNISolone 60 MG in SYRINGE 0 ML IV SCH ×2 (09:44→21:37)
[2021-06-13] MEDS: AZITHROMYCIN 250 MG TAB PO SCH (09:44)
[2021-06-13] MEDS: UMECLIDINIUM/VILANTEROL 62.5/25MCG 7 PUFFS/INHALER INH SCH (09:44)
[2021-06-13] MEDS: ASPIRIN 81 MG ECTAB PO SCH (09:45)
[2021-06-13] MEDS: ATORVASTATIN 40 MG TAB PO SCH (09:45)
[2021-06-13] MEDS ORDERED: FUROSEMIDE 40 MG/4 ML VIAL IV ONE (11:00)
--- NOTE | 2021-06-13 14:15 | Hospitalist Progress Note ---
Date of Service June 13, 2021 Assessment & Plan (1) Acute and chronic respiratory failure with hypoxia: Plan: Patient with increased oxygen requirement since undergoing EBUS 06/11 for left upper lobe nodule that is suspicious for bronchogenic carcinoma He does have crackles on examination is requiring 9 L over his usual 4 L at home of O2, CTA chest (-) for PE or PNA. - ? COPD exacerbation, not convinced as he does not have any appreciable wheezing on examination - Given significant elevation in proBNP, will attempt diuresis with increased dose of IV Lasix 40mg, monitor output - Obtain STAT ABG - Increasing oxygen requirements, may benefit from BiPAP therapy overnight - goal sats: 88-92% - For now, continue Solumedrol, Zithromax, Nebs - Add mucolytics - Obtain sputum culture and gram stain - May require repeat Echo with bubble study to r/o shunting (2) Elevated troponin: Plan: - Suspect this is type II secondary to demand ischemia related to worsening hypoxia - Continue ASA, Plavix, Lipitor - Outpatient f/u with cardiology (3) Chronic obstructive pulmonary disease: Plan: - As above with acute exacerbation of COPD - Treatment as above (#1) - Continue home maintenance inhaler (4) Pulmonary nodule: Plan: - Now status post biopsy at [facility] in [place] on 06/11 - He will follow-up for results of that (5) Severe pulmonary hypertension: Plan: - Noted - On chronic O2 therapy (4L) - Diuresed with IV Lasix 20mg x1 yesterday with poor response - Attempt diuresis again w/ higher dose of Lasix as per #1 (6) GERD (gastroesophageal reflux disease): Plan: - continue pepcid (7) Essential tremor: Plan: - In the right hand - Not currently on medication for this (8) Hyperlipidemia: Plan: - Continue statin (9) Carotid stenosis: Plan: - Near complete occlusion of LICA - Asymptomatic - Continue aspirin, Plavix, and statin (10) BPH (benign prostatic hyperplasia): Plan: - No acute issues (11) Aortic aneurysm: Plan: 3.9 x 3.8 cm infrarenal AAA Follow-up as an outpatient Plan: DVT prophylaxis-SCDs only given recent biopsy Transition to BiPAP therapy overnight hours -- would benefit from increased intrathoracic pressure and NIPPV Diurese Follow up labs in AM Consider pulmonology consult if no improvement with above changes Admission and Anticipated Discharge Date Admission Date: June 12, 2021 [address]ive Mr. Manzanares was seen on rounds this morning. Pt currently resting comfortably in bed. Pt hospitalized 06/12 for acute on chronic hypoxic respiratory failure. Pt has a h/o emphysema and chronically wears 4L of O2 at home. He is s/p EBUS on 06/11 for MANOJ nodule that is suspicious for bronchogenic carcinoma performed at [facility]. Pt notes since the procedure, he has been short of breath. His ongoing dyspnea and inability to maintain sats above 85-88% at home prompted him to come to the ER. Pt's O2 increased to 9L via oxymask and he was admitted for suspected AECOPD. He was given a dose of IV Lasix 20mg x1 and has been initiated on empiric abx as well as steroids and mucolytics. This morning, pt reports that he still feels short of breath. His oxygen requirements have continued to rise since admission, and on rounds this morning he was on 12L. He notes increased cough since the procedure and is bringing up yellow-tinged sputum, no blood since immediately after the bronch. He denies chest pain, fever, chills, n/v/d, headache, or gu symptoms. Review of Systems Review of Systems: CONSTITUTIONAL: Denies weight loss/gain, fever and chills, fatigue, malaise, generalized weakness. HEENT: Denies changes in vision and hearing. RESPIRATORY: +SOB, cough. Denies wheezing. CV: Denies palpitations, CP, lower extremity edema, orthopnea, PND. GI: Denies abdominal pain, nausea, vomiting and diarrhea. : Denies dysuria and urinary frequency, urgency, hesitancy. MUSCULOSKELETAL: Denies myalgia and joint pain. SKIN: Denies rash and pruritus. NEUROLOGICAL: Denies headache, syncope, focal weakness, numbness, tingling. PSYCHIATRIC: Denies recent changes in mood. Denies anxiety and depression. Physical Exam Physical Exam: GENERAL: 71 yo elderly WD/WN WM. Pleasant, cooperative NAD. LUNGS: Nonlabored, no accessory muscle use. Bibasilar crackles appreciated. No wheezes or rhonchi. CARDIOVASCULAR: Regular rate and rhythm. ABDOMEN: Soft, non-tender and non-distended. BS normal x 4 quad. EXTREMITIES: No edema. Non-tender. Peripheral pulses +2/4. PSYCH: appropriate mood and affect. SKIN: Warm, dry, intact. No rashes or lesions. Results & Data Results & Data ([facility]) Vital Signs (Past 12 Hours) Vital Signs Temp Pulse Pulse Resp BP Pulse Ox 06/13/21 11:18 36.3 C L 86 18 122/67 90 06/13/21 09:45 75 06/13/21 08:07 83 20 89 L 06/13/21 07:32 34.7 C L 78 16 133/78 90 06/13/21 02:21 36.7 C 75 18 125/77 90 Laboratory Results 06/13/21 08:16 06/13/21 08:16 PG Care Time/CCT Total # of Minutes Spent Total Time Spent with Patient: Total time spent is greater than 50% in coordination of care (as documented) at patient's floor/unit and/or counseling patient: Coding Level of Care Code 81815 Subseq Hosp Care Lvl 2 Diagnoses Acute and chronic respiratory failure with hypoxia J96.21 Chronic obstructive pulmonary disease J44.9 Pulmonary nodule R91.1 Severe pulmonary hypertension I27.20 GERD (gastroesophageal reflux disease) K21.9 Essential tremor G25.0 Hyperlipidemia E78.5 Carotid stenosis I65.29 BPH (benign prostatic hyperplasia) N40.0 Aortic aneurysm I71.9 Elevated troponin R77.8
[2021-06-13 14:54] LABS: Base Excess ABG -0.1 mEq/L (-9-1.8); HCO3 ABG 23 mmol/L (19-24); Oxygen Saturation ABG 88.7 % (90-95); PCO2 ABG 34 mmHg (35-46); PO2 ABG 57 mmHg (80-95); pH ABG 7.45 (7.35-7.45)
[2021-06-13 15:19] LABS: Allen Test Pos (Pos)
[2021-06-13] MEDS: guaiFENesin 600 MG TABCR PO SCH (21:37)
[2021-06-14 07:37] LABS: Hematocrit (blood only) 42.5 % (42-52); Hemoglobin 14.5 g/dL (14.0-18.0); Immature Granulocytes # (auto) 0.01 K/uL (0.00-0.02); Immature Granulocytes % (auto) 0.1 %; Lymphocytes % (auto) 5.4 %; Mean Corpuscular Hemoglobin 34.8 pg (25-34); Mean Corpuscular Hgb Conc 34.1 g/dL (32-36); Mean Corpuscular Volume 101.9 fL (80-100); Mean Platelet Volume 10.1 fL (7.4-10.4); Monocytes # (auto) 0.48 K/uL (0.11-0.59); Monocytes % (auto) 4.3 %; Neutrophils # (auto) 10.08 K/uL (1.4-6.5); Neutrophils % (auto) 90.2 %; Platelet Count 123 K/uL (130-400); RDW Coefficient of Variation 15.2 % (11.5-14.5); RDW Standard Deviation 56.6 fL (36.4-46.3); Red Blood Count 4.17 M/uL (4.7-6.1); White Blood Count 11.17 K/uL (4.8-10.8)
[2021-06-14] MEDS: ALBUT/IPRATROP 3MG/0.5MG NEB 3 ML VIAL INH SCH ×3 (07:47→22:57)
[2021-06-14] MEDS: BUDESONIDE 0.25 MG/2 ML VIAL (PULMICORT) INH SCH ×2 (07:48→19:56)
[2021-06-14 08:12] LABS: BUN Creatinine Ratio 27.2 (10-20); Calcium 9.1 mg/dl (8.5-10.1); Creatinine Clr Calc Pharmacy 64.3 ml/min; Est GFR (African American) 77.6 ml/min; Magnesium 2.2 mg/dl (1.8-2.4); Potassium 4.4 mmol/L (3.5-5.1)
[2021-06-14] MEDS: UMECLIDINIUM/VILANTEROL 62.5/25MCG 7 PUFFS/INHALER INH SCH (09:13)
[2021-06-14] MEDS: methylPREDNISolone 60 MG in SYRINGE 0 ML IV SCH ×2 (09:13→21:26)
[2021-06-14] MEDS: ASPIRIN 81 MG ECTAB PO SCH (09:16)
[2021-06-14] MEDS: AZITHROMYCIN 250 MG TAB PO SCH (09:16)
[2021-06-14] MEDS: FAMOTIDINE 20 MG TAB PO SCH (09:16)
[2021-06-14] MEDS: guaiFENesin 600 MG TABCR PO SCH ×2 (09:16→21:27)
[2021-06-14] MEDS: ATORVASTATIN 40 MG TAB PO SCH (09:16)
[2021-06-14] MEDS: CLOPIDOGREL BISULFATE 75 MG TAB PO SCH (09:17)
--- NOTE | 2021-06-14 10:15 | Hospitalist Progress Note ---
Date of Service June 14, 2021 Assessment & Plan (1) Acute and chronic respiratory failure with hypoxia: Plan: Patient with increased oxygen requirement since undergoing EBUS 06/11 for left upper lobe nodule that is suspicious for bronchogenic carcinoma He does have crackles on examination is requiring 9 L over his usual 4 L at home of O2, CTA chest (-) for PE or PNA. - ? COPD exacerbation, not convinced as he does not have any appreciable wheezing on examination - Given significant elevation in proBNP, attempted diuresis with IV Lasix 40mg yesterday; had good output but + fluid balance d/t high intake - Adjust diet to include fluid balance of 1800 mL daily - Repeat BNP, anticipate need for another dose of IV Lasix 40mg x1 - Continue downtitrating O2 - goal sats: 88-92% - Continue Solumedrol, Zithromax, Nebs, mucolytics - Obtain sputum culture and gram stain - May require repeat Echo with bubble study to r/o shunting (2) Elevated troponin: Plan: - Suspect this is type II secondary to demand ischemia related to worsening hypoxia - Continue ASA, Plavix, Lipitor - Outpatient f/u with cardiology (3) Chronic obstructive pulmonary disease: Plan: - As above with acute exacerbation of COPD - Treatment as above (#1) - Continue home maintenance inhaler (4) Pulmonary nodule: Plan: - Now status post biopsy at [facility] in [place] on 06/11 - He will follow-up for results of that (5) Severe pulmonary hypertension: Plan: - Noted - On chronic O2 therapy (4L) - Diuresed with IV Lasix 20mg x1 yesterday with poor response - Attempt diuresis again w/ higher dose of Lasix as per #1 (6) GERD (gastroesophageal reflux disease): Plan: - continue pepcid (7) Essential tremor: Plan: - In the right hand - Not currently on medication for this (8) Hyperlipidemia: Plan: - Continue statin (9) Carotid stenosis: Plan: - Near complete occlusion of LICA - Asymptomatic - Continue aspirin, Plavix, and statin Plan: DVT prophylaxis-SCDs only given recent biopsy Diuresis as noted above Follow up labs in AM Will consider pulmonology consult if lacks improvement Admission and Anticipated Discharge Date Admission Date: June 12, 2021 Subjective Mr. Manzanares was seen on rounds this morning. Pt hospitalized 06/12 for acute on chronic hypoxic respiratory failure. Pt has a h/o emphysema and chronically wears 4L of O2 at home. He is s/p EBUS on 06/11 for MANOJ nodule that is suspicious for bronchogenic carcinoma performed at [facility]. This morning, pt reports that he still feels short of breath. I discussed trial of BiPAP therapy overnight with him and he was agreeable; however, this morning notes that he refused the BiPAP and would like to d/w his GP prior to trial. His most recent pulse ox documentation is 98% on 15L. RN downtitrated O2 to 13L and pt told her he felt more short of breath and that he wasn't getting enough oxygen despite pulse ox readings of 93%. He is currently wearing his home pulse monitor and continues to obsess/fixate on his oxygen levels. He denies chest pain, fever, chills, n/v/d, headache, or gu symptoms. He does admit to having anxiety regarding his O2 levels/breathing. Review of Systems Review of Systems: CONSTITUTIONAL: Denies weight loss/gain, fever and chills, fatigue, malaise, generalized weakness. HEENT: Denies changes in vision and hearing. RESPIRATORY: +SOB, cough. Denies wheezing. CV: Denies palpitations, CP, lower extremity edema, orthopnea, PND. GI: Denies abdominal pain, nausea, vomiting and diarrhea. : Denies dysuria and urinary frequency, urgency, hesitancy. MUSCULOSKELETAL: Denies myalgia and joint pain. SKIN: Denies rash and pruritus. NEUROLOGICAL: Denies headache, syncope, focal weakness, numbness, tingling. PSYCHIATRIC: Denies recent changes in mood. Denies anxiety and depression. Physical Exam Physical Exam: GENERAL: 71 yo elderly WD/WN WM. Pleasant, cooperative NAD. LUNGS: Nonlabored, no accessory muscle use. Bibasilar crackles appreciated. No wheezes or rhonchi. CARDIOVASCULAR: Regular rate and rhythm. ABDOMEN: Soft, non-tender and non-distended. BS normal x 4 quad. EXTREMITIES: No edema. Non-tender. Peripheral pulses +2/4. PSYCH: appropriate mood and affect. SKIN: Warm, dry, intact. No rashes or lesions. Results & Data Results & Data ([facility]) Vital Signs (Past 12 Hours) Vital Signs Temp Pulse Pulse Resp BP Pulse Ox 06/14/21 07:48 86 18 98 06/14/21 07:29 36.5 C 84 18 132/75 98 06/14/21 02:53 36.5 C 87 18 144/86 H 91 06/13/21 23:26 81 06/13/21 23:09 85 18 92 06/13/21 22:36 36.7 C 81 18 112/65 96 Laboratory Results 06/14/21 07:06 06/14/21 07:06 PG Care Time/CCT Total # of Minutes Spent Total Time Spent with Patient: Total time spent is greater than 50% in coordination of care (as documented) at patient's floor/unit and/or counseling patient: Coding Level of Care Code 94402 Subseq Hosp Care Lvl 2 Diagnoses Acute and chronic respiratory failure with hypoxia J96.21 Elevated troponin R77.8 Chronic obstructive pulmonary disease J44.9 Pulmonary nodule R91.1 Severe pulmonary hypertension I27.20 GERD (gastroesophageal reflux disease) K21.9 Essential tremor G25.0 Hyperlipidemia E78.5 Carotid stenosis I65.29
[2021-06-14] MEDS ORDERED: FUROSEMIDE 40 MG/4 ML VIAL IV ONE (17:30)
[2021-06-15] MEDS: ALBUT/IPRATROP 3MG/0.5MG NEB 3 ML VIAL INH SCH ×3 (07:22→23:14)
[2021-06-15] MEDS: BUDESONIDE 0.25 MG/2 ML VIAL (PULMICORT) INH SCH ×2 (07:22→20:46)
[2021-06-15] MEDS: ATORVASTATIN 40 MG TAB PO SCH (08:31)
[2021-06-15] MEDS: CLOPIDOGREL BISULFATE 75 MG TAB PO SCH (08:31)
[2021-06-15] MEDS: AZITHROMYCIN 250 MG TAB PO SCH (08:31)
[2021-06-15] MEDS: ASPIRIN 81 MG ECTAB PO SCH (08:31)
[2021-06-15] MEDS: guaiFENesin 600 MG TABCR PO SCH ×2 (08:31→20:17)
[2021-06-15] MEDS: methylPREDNISolone 60 MG in SYRINGE 0 ML IV SCH ×2 (08:32→20:16)
[2021-06-15 09:00] LABS: BUN Creatinine Ratio 30.7 (10-20); Calcium 9.3 mg/dl (8.5-10.1); Creatinine Clr Calc Pharmacy 56.1 ml/min; Est GFR (African American) 65.8 ml/min; Est GFR (Non-African American) 56.8 ml/min; Potassium 4.2 mmol/L (3.5-5.1)
[2021-06-15] MEDS ORDERED: FUROSEMIDE 40 MG/4 ML VIAL IV SCH (09:00)
[2021-06-15] MEDS: FAMOTIDINE 20 MG TAB PO SCH (09:20)
[2021-06-15] MEDS: UMECLIDINIUM/VILANTEROL 62.5/25MCG 7 PUFFS/INHALER INH SCH (09:32)
--- NOTE | 2021-06-15 16:45 | Hospitalist Progress Note ---
Date of Service June 15, 2021 Assessment & Plan (1) Acute and chronic respiratory failure with hypoxia: Plan: Patient with increased oxygen requirement since undergoing EBUS 06/11 for left upper lobe nodule that is suspicious for bronchogenic carcinoma He does have crackles on examination is requiring 9 L over his usual 4 L at home of O2, CTA chest (-) for PE or PNA. - ? COPD exacerbation, not convinced as he does not have any appreciable wheezing on examination - Given significant elevation in proBNP, attempted diuresis with a few doses of IV Lasix 40mg - Adjust diet to include fluid balance of 1800 mL daily - Repeat BNP even higher at 5800, suspect this may be related to his lung nodule - Continue downtitrating O2 - goal sats: 88-92% - Continue Solumedrol, Zithromax, Nebs, mucolytics--transition to PO prednisone on 12/4 AM - Obtain sputum culture and gram stain - Had a long discussion with RT that patient is established with [facility] -- she has been concerned about this status over the past month, she feels that he has had a significant decline. She does not feel that he is progressing in pulmonary rehab and would benefit from consideration of hospice care. She believes his baseline O2 requirements is closer to 10L. (2) Elevated troponin: Plan: - Suspect this is type II secondary to demand ischemia related to worsening hypoxia - Continue ASA, Plavix, Lipitor - Outpatient f/u with cardiology (3) Chronic obstructive pulmonary disease: Plan: - As above with acute exacerbation of COPD - Treatment as above (#1) - Continue home maintenance inhaler (4) Pulmonary nodule: Plan: - Now status post biopsy at [facility] in [place] on 06/11 - He will follow-up for results of that (5) Severe pulmonary hypertension: Plan: - Noted - On chronic O2 therapy (4L) -- see above - Diuresis attempted, but do not believe at this time he is in fulminant CHF - Pulmonary HTN is what prompted EBUS at [facility] (6) GERD (gastroesophageal reflux disease): Plan: - continue pepcid (7) Essential tremor: Plan: - In the right hand - Not currently on medication for this (8) Hyperlipidemia: Plan: - Continue statin (9) Carotid stenosis: Plan: - Near complete occlusion of LICA - Asymptomatic - Continue aspirin, Plavix, and statin Plan: Consult Case management to make arrangements for home with hospice. Discussed with patient and his daughter this afternoon, both on board with this plan. Hopefully will be able to discharge home tomorrow with hospice care. Admission and Anticipated Discharge Date Admission Date: June 12, 2021 Subjective Mr. Manzanares was seen on rounds this morning. Pt hospitalized 06/12 for acute on chronic hypoxic respiratory failure. Pt has a h/o emphysema and chronically wears 4L of O2 at home. He is s/p EBUS on 06/11 for MANOJ nodule that is suspicious for bronchogenic carcinoma performed at [facility]. Results are still unknown. Pt reports that he still feels somewhat short of breath at rest. Currently requiring 11L of O2. He denies chest pain, fever, chills, n/v/d, headache, or gu symptoms. He does admit to having anxiety regarding his O2 levels/breathing. Review of Systems Review of Systems: CONSTITUTIONAL: Denies weight loss/gain, fever and chills, fatigue, malaise, generalized weakness. HEENT: Denies changes in vision and hearing. RESPIRATORY: +SOB, cough. Denies wheezing. CV: Denies palpitations, CP, lower extremity edema, orthopnea, PND. GI: Denies abdominal pain, nausea, vomiting and diarrhea. : Denies dysuria and urinary frequency, urgency, hesitancy. MUSCULOSKELETAL: Denies myalgia and joint pain. SKIN: Denies rash and pruritus. NEUROLOGICAL: Denies headache, syncope, focal weakness, numbness, tingling. PSYCHIATRIC: Denies recent changes in mood. Denies anxiety and depression. Physical Exam Physical Exam: GENERAL: 71 yo elderly WD/WN WM. Pleasant, cooperative NAD. LUNGS: Nonlabored, no accessory muscle use. Bibasilar crackles appreciated. No wheezes or rhonchi. CARDIOVASCULAR: Regular rate and rhythm. ABDOMEN: Soft, non-tender and non-distended. BS normal x 4 quad. EXTREMITIES: No edema. Non-tender. Peripheral pulses +2/4. PSYCH: appropriate mood and affect. SKIN: Warm, dry, intact. No rashes or lesions. Results & Data Results & Data ([facility]) Vital Signs (Past 12 Hours) Vital Signs Temp Pulse Pulse Resp BP BP Pulse Ox 06/15/21 15:51 90 21 90 06/15/21 15:11 96 H 06/15/21 15:00 36.6 C 90 20 153/85 H 91 06/15/21 11:52 36.4 C L 94 H 20 164/91 H 06/15/21 08:00 68 06/15/21 07:26 81 22 93 06/15/21 06:52 36.7 C 75 20 145/85 H 92 PG Care Time/CCT Total # of Minutes Spent Total Time Spent with Patient: Total time spent is greater than 50% in coordination of care (as documented) at patient's floor/unit and/or counseling patient: Coding Level of Care Code 49528 Subseq Hosp Care Lvl 2 Diagnoses Acute and chronic respiratory failure with hypoxia J96.21 Elevated troponin R77.8 Chronic obstructive pulmonary disease J44.9 Pulmonary nodule R91.1 Severe pulmonary hypertension I27.20 GERD (gastroesophageal reflux disease) K21.9 Essential tremor G25.0 Hyperlipidemia E78.5 Carotid stenosis I65.29
[2021-06-15] MEDS ORDERED: CHLORASEPTIC 1.4% SOLN 180 ML BTL MT PRN (20:31)
[2021-06-15] MEDS: MELATONIN 3 MG TAB PO PRN (22:31)
[2021-06-15] MEDS ORDERED: CALCIUM CARBONATE 500 MG CHEWABLE TAB PO PRN (23:05)
[2021-06-16] MEDS: BUDESONIDE 0.25 MG/2 ML VIAL (PULMICORT) INH SCH ×2 (07:47→23:25)
[2021-06-16] MEDS: ALBUT/IPRATROP 3MG/0.5MG NEB 3 ML VIAL INH SCH ×3 (07:47→23:25)
[2021-06-16] MEDS: ASPIRIN 81 MG ECTAB PO SCH (08:22)
[2021-06-16] MEDS: FAMOTIDINE 20 MG TAB PO SCH (08:23)
[2021-06-16] MEDS: AZITHROMYCIN 250 MG TAB PO SCH (08:23)
[2021-06-16] MEDS: ATORVASTATIN 40 MG TAB PO SCH (08:23)
[2021-06-16] MEDS: CLOPIDOGREL BISULFATE 75 MG TAB PO SCH (08:23)
[2021-06-16] MEDS: guaiFENesin 600 MG TABCR PO SCH ×2 (08:23→21:29)
[2021-06-16] MEDS: methylPREDNISolone 60 MG in SYRINGE 0 ML IV SCH (08:23)
[2021-06-16] MEDS: UMECLIDINIUM/VILANTEROL 62.5/25MCG 7 PUFFS/INHALER INH SCH (08:25)
--- NOTE | 2021-06-16 10:37 | Discharge Summary ---
Date of Service June 16, 2021 Admission HPI Per Admitting Provider This patient is a 71-year-old male with a history of COPD with chronic bronchitis mixed obstructive and restrictive lung disease, pulmonary nodule, severe pulmonary hypertension, chronic respiratory failure with hypoxia on 4 L nasal cannula, ex-smoker, GERD, dyslipidemia, and BPH who presents to the ER with worsening shortness of breath and hypoxia to pulse ox 77% when he was seen by his PCP in his office this morning He just underwent a biopsy of a lung nodule at [facility] yesterday and reports that ever since he returned home yesterday, he has been having trouble keeping his pulse ox above 85-88%. The highest his home oxygen can go is 5 L and he kept it there until this morning when he came here and was increased to 9 L oxygen mask when I saw him. He denies any chest pain. He had a scant amount of hemoptysis yesterday after the procedure but none since then. He is not really coughing up much sputum. He denies any fevers or chills. No lightheadedness. No nausea or vomiting, no abdominal pains, no diarrhea or constipation. His abdomen does not feel distended and he is not noticed any increased swelling in his legs. In the ER, he had a macrocytosis and mild thrombocytopenia on CBC, mild increase in BUN and creatinine to 26 and 1.37, troponin elevated at 0.05, proBNP elevated at 4352, and a chest x-ray which showed some decreased inspiratory effort but no acute chest disease. A Covid test was negative, and a CT angiogram of the chest was negative for pulmonary emboli, showed moderate dilatation of the right heart chambers with IVC and hepatic veins with reflux of contrast reflecting elevated right heart pressures, trace bilateral pleural effusions, trace perihepatic ascites, and a 2 cm spiculated solid left upper lobe nodule similar to prior CT several weeks ago consistent with bronchogenic carcinoma. There was no pneumothorax. He was given IV Solu-Medrol and a DuoNeb and had some improvement after being placed on 9 L oxygen. He will be admitted for acute on chronic respiratory failure with hypoxia likely secondary to acute exacerbation of COPD. Admission Exam Per Admitting Provider Constitutional: WD/WN, vitals as above Eyes: PERRL, conjunctivae normal, anicteric sclerae ENMT: external ear and nose normal, oropharynx normal Neck: trachea midline, no thyromegaly Respiratory: normal respiratory effort; no cough Auscultation: + crackles (Bibasilar); no rhonchi and no wheezes Cardiovascular: RRR, no murmur, no edema Chest (Breasts): Chest: normal inspection of chest Gastrointestinal (Abdomen): normal bowel sounds, soft, nontender, no hepatosplenomegaly Musculoskeletal: Extremities: extremities normal to inspection; no cyanosis and no clubbing Skin: no rashes, warm and dry Neurologic: moves all extremities and awake; no focal motor deficits Psychiatric: A+Ox3, euthymic affect Lymphatic: no lymphedema Principal Diagnosis Acute on chronic respiratory failure secondary to advancing lung ca Discharge Exam GENERAL: 71 yo elderly WD/WN WM. Pleasant, cooperative NAD. LUNGS: Nonlabored, no accessory muscle use. Bibasilar crackles appreciated. No wheezes or rhonchi. CARDIOVASCULAR: Regular rate and rhythm. ABDOMEN: Soft, non-tender and non-distended. BS normal x 4 quad. EXTREMITIES: No edema. Non-tender. Peripheral pulses +2/4. PSYCH: appropriate mood and affect. SKIN: Warm, dry, intact. No rashes or lesions. Discharge Data Allergies Allergy/AdvReac Type Severity Reaction Status Date / Time No Known Allergies Allergy Verified 06/12/21 14:36 Consultations None Procedures Performed None Ordered Studies 06/14/21 07:06 06/15/21 08:04 Chest X-Ray 06/12/21 12:42 XR chest 1V portable CLINICAL HISTORY: Dyspnea. Increasing shortness of breath since bronchoscopy yesterday. COMPARISON STUDY: No previous studies for comparison. TECHNIQUE: 1 view of the chest FINDINGS: Single frontal view of the chest demonstrates the cardiomediastinal silhouette to be within normal limits. There is a decreased inspiratory effort with elevation of the hemidiaphragms and crowding of the bronchovascular markings at the lung bases and centrally. There is no evidence for pneumothorax. The lungs are clear of alveolar opacities. There is no evidence for pleural effusion. There is no evidence for vascular congestion. There is no acute osseous pathology. IMPRESSION: There is a decreased inspiratory effort with otherwise no acute chest disease. ACT 112: Negative or not required by law. Electronically signed by: Tony Mejia M.D. 06/12/2021 1:21 PM Chest CTA 11/30/21 13:45 CT ANGIOGRAPHY OF THE CHEST, PULMONARY EMBOLUS PROTOCOL CLINICAL HISTORY: Shortness of breath. Hypoxia. COMPARISON STUDY: Chest CT March 01, 2021. PET/CT March 21, 2021. Chest CT May 16, 2021. Chest radiograph performed earlier today. TECHNIQUE: Following IV administration of 1 mL of Optiray, helical axial images of the chest were obtained utilizing the pulmonary embolus protocol. Maximal i ntensity projections and sagittal and coronal reformats were viewed on an independent 3D workstation. IV contrast was administered without complication. Automated exposure control was utilized for the study. A dose lowering technique was utilized adhering to the principles of ALARA. CT DOSE: 344.36 mGy.cm FINDINGS: No pulmonary emboli are identified. Moderate dilatation of the right heart chambers is noted with dilatation of the IVC and hepatic veins with reflux of contrast. There is no pericardial effusion. Several mildly enlarged mediastinal lymph nodes are unchanged since CT of May 16, 2021. Index AP window lymph node measures 1.6 x 1.2 cm. Moderate coronary artery calcification is again noted. There are several calcified mediastinal lymph nodes. Calcified granulomas within the lungs are noted. No pneumothorax is present. There are trace bilateral pleural effusions. Upper lobe predominant emphysema is again noted. A 2 cm spiculated solid left upper lobe nodule is similar to CT of May 16, 2021. This is increased in size since CT of March 01, 2021. A few additional tiny pulmonary nodules are also unchanged and prior CT. These remain indeterminate. Mild ground glass opacities within the lungs are unchanged since prior exam. These are probably chronic. No suspicious lesions are identified within visualized portions of the bony thorax. There are calcified granulomas within the spleen. There is trace perihepatic ascites. IMPRESSION: 1. No pulmonary emboli identified. 2. 2 cm spiculated solid left upper lobe nodule which is similar to CT of May 16, 2021. This has increased in size since chest CT of February 19, 2021. This is consistent with bronchogenic carcinoma. 3. Moderate dilatation of the right heart chambers, IVC and hepatic veins with reflux of contrast. This may reflect elevated right heart pressures. 4. Emphysema. 5. Trace bilateral pleural effusions. Trace perihepatic ascites. 6. No change in groundglass opacities which are likely chronic. ACT 112: Negative or not required by law. Electronically signed by: Hernandez Wade M.D. 06/12/2021 3:44 PM Hospital Course (1) Acute and chronic respiratory failure with hypoxia: Patient with increased oxygen requirement since undergoing EBUS 06/11 for left upper lobe nodule that is suspicious for bronchogenic carcinoma - CTA chest (-) for PE or PNA upon admission - ? COPD exacerbation, not convinced as he does not have any appreciable wheezing on examination - Given significant elevation in proBNP, attempted diuresis with a few doses of IV Lasix 40mg with marginal response - Adjusted diet to include fluid balance of 1800 mL daily - Repeat BNP even higher at 5800, ? related to his lung nodule - Continue downtitrating O2, down to 10L this morning - goal sats: 88-92% - Treated with Solumedrol, Zithromax, Nebs, mucolytics -- completed 5 days of Zithromax, transition to oral Prednisone taper to be completed at home - Attempted to obtain sputum culture and gram stain, but pt unable to produce specimen, thus canceled - During this hospitalization, attempted to place pt on BiPAP but he refused - Had a long discussion with RT that patient is established with at [facility] -- she has been concerned about this status over the past month, she feels that he has had a significant decline. She does not feel that he is progressing in pulmonary rehab and would benefit from consideration of hospice care. She believes his baseline O2 requirements is closer to 10L. - Discussed with patient, , and daughter, all on board with plan for home with hospice. (2) Elevated troponin: - Suspect this is type II secondary to demand ischemia related to worsening hypoxia - Continue ASA, Plavix, Lipitor - Outpatient f/u with cardiology (3) Chronic obstructive pulmonary disease: - As above with acute exacerbation of COPD - Treatment as above (#1) - Continue home maintenance inhaler (4) Pulmonary nodule: - Now status post biopsy at [facility] in [place] on 06/11 - He will follow-up for results of that - Poor prognosis given decline over the past month (5) Severe pulmonary hypertension: - Noted - On chronic O2 therapy (4L) -- see above - Diuresis attempted, but do not believe at this time he is in fulminant CHF - Pulmonary HTN is what prompted EBUS at [facility] (6) GERD (gastroesophageal reflux disease): - continue pepcid (7) Essential tremor: - In the right hand - Not currently on medication for this (8) Hyperlipidemia: - Continue statin (9) Carotid stenosis: - Near complete occlusion of LICA - Asymptomatic - Continue aspirin, Plavix, and statin Discussed with patient this morning that we will be making arrangements for him to get home with hospice care this morning. Spoke with patient's , Aysha, this morning and she is on board with this plan. Referral sent to [place]. Home with hospice today. F/U for results of lung biopsy. F/U with family doctor. Discussed above plan with Dr. Harris who will see patient prior to discharge. Total Time Total Time Spent Total Time Spent (In Minutes): >30 minutes Discharge Plan Discharge Items Patient Disposition: Transfer Detention Fac Reason For Visit: ACUTE ON CHRONIC HYPOXIA, COPD EXACERBATION, +TROP Discharge Diagnosis: Acute on chronic respiratory failure due to advancing lung cancer Condition on Discharge: Fair Activity: Resume your previous activity Activity Comment: As tolerated Non-emergency contact: Primary Care Provider and Door Paneler Call non-emergency contact if: you have any medication questions and your symptoms worsen Follow-up/Referrals: [facility] [Primary Care Provider] - Diet: Regular Addtl Attending Provider Instructions: - Taper steroids as directed. - Continue wearing oxygen 10L as directed (may taper to keep pulse ox between 88-90%) - Follow up with [facility] regarding results of lung biopsy. - pending results of recent bx, consider referral to Oncology to discuss treatment options - Follow up with primary care physician within 1 week of discharge. Pending Studies at Discharge: Yes Studies:: Lung biopsy report from [facility] -- results unknown at this time. Stand-Alone Forms: My [facility] Skilled Items Patient informed of condition?: Yes DNR: No Discharge Level of Care: Skilled Communicable Disease: No Discharge Prognosis: Other Lines: None Urinary Catheter: No Medications and DC Order Prescriptions: New prednisone 10 mg tablet 10 mg PO DAILY Qty: 30 RF: 0 prednisone 20 mg Tablet 10 mg PO DIRECTED Qty: 18 RF: 0 Continued Stiolto Respimat 2.5-2.5 mcg/actuation mist 2 puff inhalation DAILY Qty: 3 RF: 1 albuterol sulfate 90 mcg/actuation HFA aerosol inhaler 2 puff inhalation Q6H PRN (Reason: Shortness Of Breath Or Wheezing) Qty: 18 RF: 3 famotidine 20 mg tablet 20 mg PO QAM RF: 0 clopidogrel 75 mg tablet 75 mg PO QAM RF: 0 ipratropium-albuterol 0.5 mg-3 mg(2.5 mg base)/3 mL solution for nebulization 3 ml inhalation Q8H PRN (Reason: shortness of breath or wheezing) Qty: 180 RF: 2 aspirin 81 mg Tablet,Delayed Release (Dr/Ec) 81 mg PO QAM RF: 0 atorvastatin 40 mg Tablet 40 mg PO QAM RF: 0 budesonide 0.25 mg/2 mL suspension for nebulization 0.25 mg inhalation BID PRN (Reason: Shortness Of Breath) RF: 0 Discharge Orders: Discharge Order (Routine); Ordered 06/18/21 Ordered By: Lidia Maxwell Admission Data Admit Date/Time: 06/12/21 15:39 Attending Provider: Manolo Harris Admit Provider: Katherine Gustafson [facility] Other Providers: Katherine Gustafson ; [facility] ; Cynthia Mariano Other Interventions: Discharge Summary Assessment (RN) Last Done: 06/18/21 10:48 Supervising Physician Co-Signing Physician Notes note that discharge was delayed, see discharge summary from the following week Coding Level of Care Code D/C DAY MANAGEMENT >30 MINS Diagnoses Acute and chronic respiratory failure with hypoxia J96.21 Elevated troponin R77.8 Chronic obstructive pulmonary disease J44.9 Pulmonary nodule R91.1 Severe pulmonary hypertension I27.20 GERD (gastroesophageal reflux disease) K21.9 Essential tremor G25.0 Hyperlipidemia E78.5 Carotid stenosis I65.29
[2021-06-16] MEDS ORDERED: CALCIUM CARBONATE 500 MG CHEWABLE TAB PO PRN (16:05)
[2021-06-16] MEDS ORDERED: CALCIUM CARBONATE 500 MG CHEWABLE TAB ONE (16:09)
[2021-06-16] MEDS: MELATONIN 3 MG TAB PO PRN (21:38)
[2021-06-17] MEDS: ALBUT/IPRATROP 3MG/0.5MG NEB 3 ML VIAL INH SCH ×3 (07:43→22:48)
[2021-06-17] MEDS: BUDESONIDE 0.25 MG/2 ML VIAL (PULMICORT) INH SCH ×2 (07:43→22:48)
[2021-06-17] MEDS: ASPIRIN 81 MG ECTAB PO SCH (08:08)
[2021-06-17] MEDS: ATORVASTATIN 40 MG TAB PO SCH (08:08)
[2021-06-17] MEDS: FAMOTIDINE 20 MG TAB PO SCH (08:08)
[2021-06-17] MEDS: CLOPIDOGREL BISULFATE 75 MG TAB PO SCH (08:08)
[2021-06-17] MEDS: AZITHROMYCIN 250 MG TAB PO SCH (08:08)
[2021-06-17] MEDS: predniSONE 20 MG TAB PO SCH (08:09)
[2021-06-17] MEDS: UMECLIDINIUM/VILANTEROL 62.5/25MCG 7 PUFFS/INHALER INH SCH (08:09)
[2021-06-17] MEDS: guaiFENesin 600 MG TABCR PO SCH ×2 (08:09→20:52)
--- NOTE | 2021-06-17 12:45 | Hospitalist Progress Note ---
Date of Service June 17, 2021 Assessment & Plan (1) Acute and chronic respiratory failure with hypoxia: Plan: Patient with increased oxygen requirement since undergoing EBUS 06/11 for left upper lobe nodule that is suspicious for bronchogenic carcinoma - CTA chest (-) for PE or PNA upon admission - ? COPD exacerbation on admission but was not the case - Given significant elevation in proBNP, attempted diuresis with a few doses of IV Lasix 40mg with marginal response - Adjusted diet to include fluid balance of 1800 mL daily - Repeat BNP even higher at 5800, ? related to his lung nodule - Continue downtitrating O2, down to 10L this morning - goal sats: 88-92% - Treated with Solumedrol, Zithromax, Nebs, mucolytics -- completed 5 days of Zithromax, transitioned to oral Prednisone this AM - Attempted to obtain sputum culture and gram stain, but pt unable to produce specimen, thus canceled - During this hospitalization, attempted to place pt on BiPAP but he refused - Had a long discussion with RT that patient is established with at [facility] -- she has been concerned about this status over the past month, she feels that he has had a significant decline. She does not feel that he is progressing in pulmonary rehab and would benefit from consideration of hospice care. She believes his baseline O2 requirements is closer to 10L. - Discussed with patient, , and daughter, all on board with plan for home with hospice after initial discussion but now want more information about other alternatives -- such as pursuing radiation therapy - Will consult palliative medicine to assist pt and family in making decision and establishing goals - Attempted to call [facility] to obtain results of lung biopsy -- however, suspect aggressive malignancy given locally enlarged lymph nodes on imaging and increase in tumor size from Feb to May scans and patient's rapid deterioration - Uncertain if SNF portion of the [facility] can accommodate pt's O2 needs. This will need to be explored further by case management. (2) Elevated troponin: Plan: - Suspect this is type II secondary to demand ischemia related to worsening hypoxia - Continue ASA, Plavix, Lipitor - Outpatient f/u with cardiology (3) Chronic obstructive pulmonary disease: Plan: - As above with acute exacerbation of COPD - Treatment as above (#1) - Continue home maintenance inhaler (4) Pulmonary nodule: Plan: - Now status post biopsy at [facility] in [place] on 06/11 - He will follow-up for results of that -- attempted to obtain results from [facility] w/o success. - Poor prognosis given decline over the past month (5) Severe pulmonary hypertension: Plan: - Noted - On chronic O2 therapy (4L) -- see above - Diuresis attempted, but do not believe at this time he is in fulminant CHF - Pulmonary HTN is what prompted EBUS at [facility] (6) GERD (gastroesophageal reflux disease): Plan: - continue pepcid (7) Essential tremor: Plan: - In the right hand - Not currently on medication for this (8) Hyperlipidemia: Plan: - Continue statin (9) Carotid stenosis: Plan: - Near complete occlusion of LICA - Asymptomatic - Continue aspirin, Plavix, and statin Plan: Spent some time with patient this morning trying to establish his overall goals of care. He recognizes that his prognosis is poor and anticipates that his overall life expectancy may not be 6 months like he was hoping. Unfortunately, I do not suspect he would do well with aggressive intervention for his malignancy. It would likely only accelerate his decline. His main goals are to ensure that his is cared for, that his daughter is made legal POA, and his finances are in order. His daughter is in the process of attempting to transition his into personal care. Pt would not be able to be in personal care with requiring 10L of high flow O2, would need to make sure that the SNF portion of the facility can accommodate him and that he understands that would mean he would be from his . He asked that I return this afternoon to discuss further with him when his daughter, Rosa Elena, is present. We did establish that for now he would like his code status to be DNI, but is agreeable to compressions and defibrillation. The code status conversation was witnessed by RN and has been documented accordingly in the chart. Admission and Anticipated Discharge Date Admission Date: June 12, 2021 Subjective Mr. Manzanares was seen on rounds this morning. Pt hospitalized 06/12 for acute on chronic hypoxic respiratory failure. Pt has a h/o emphysema and chronically wears 4L of O2 at home. He is s/p EBUS on 06/11 for MANOJ nodule that is suspicious for bronchogenic carcinoma performed at [facility]. Results are still unknown. Pt reports that he still feels somewhat short of breath at rest. Currently requiring 10-11L of O2. He denies chest pain, fever, chills, n/v/d, headache, or gu symptoms. Discussed some discharge options with patient and his daughter on 06/16 including hospice. Initially, after the preliminary discussion, pt and daughter were agreeable to this plan. Case management consulted to assist in making arra ngements. However, the following day, pt and daughter began discussing alternative options which included questioning role for radiation therapy. Pt and daughter would like to discuss plans with his GP before he finalizes any decisions. He does state that he has a living will/advanced directive in place. He wishes to be a DNI. He is still agreeable to CPR, this conversation was witnessed by RN, Cynthia. Review of Systems Review of Systems: CONSTITUTIONAL: Denies weight loss/gain, fever and chills, fatigue, malaise, generalized weakness. HEENT: Denies changes in vision and hearing. RESPIRATORY: +SOB, cough. Denies wheezing. CV: Denies palpitations, CP, lower extremity edema, orthopnea, PND. GI: Denies abdominal pain, nausea, vomiting and diarrhea. : Denies dysuria and urinary frequency, urgency, hesitancy. MUSCULOSKELETAL: Denies myalgia and joint pain. SKIN: Denies rash and pruritus. NEUROLOGICAL: Denies headache, syncope, focal weakness, numbness, tingling. PSYCHIATRIC: Denies recent changes in mood. Denies anxiety and depression. Physical Exam Physical Exam: GENERAL: 71 yo elderly WD/WN WM. Pleasant, cooperative NAD. LUNGS: Labored breathing noted. Bibasilar crackles appreciated. No wheezes or rhonchi. CARDIOVASCULAR: Regular rate and rhythm. ABDOMEN: Soft, non-tender and non-distended. BS normal x 4 quad. EXTREMITIES: No edema. Non-tender. Peripheral pulses +2/4. Some cyanosis noted o f finger tips. PSYCH: appropriate mood and affect. SKIN: Warm, dry, intact. No rashes or lesions. Results & Data Results & Data ([facility]) Vital Signs (Past 12 Hours) Vital Signs Temp Pulse Pulse Resp BP Pulse Ox 06/17/21 11:50 36.7 C 52 L 20 135/83 96 06/17/21 08:18 65 24 146/75 H 86 L 06/17/21 07:44 70 24 92 06/17/21 07:20 70 06/17/21 03:53 36.4 C L 71 18 104/68 93 PG Care Time/CCT Total # of Minutes Spent Total Time Spent with Patient: Total time spent is greater than 50% in coordination of care (as documented) at patient's floor/unit and/or counseling patient: Coding Level of Care Code 87812 Subseq Hosp Care Lvl 2 Diagnoses Acute and chronic respiratory failure with hypoxia J96.21 Elevated troponin R77.8 Chronic obstructive pulmonary disease J44.9 Pulmonary nodule R91.1 Severe pulmonary hypertension I27.20 GERD (gastroesophageal reflux disease) K21.9 Essential tremor G25.0 Hyperlipidemia E78.5 Carotid stenosis I65.29
[2021-06-17] MEDS: MELATONIN 3 MG TAB PO PRN (23:04)
[2021-06-18] MEDS: BUDESONIDE 0.25 MG/2 ML VIAL (PULMICORT) INH SCH (07:30)
[2021-06-18] MEDS: ALBUT/IPRATROP 3MG/0.5MG NEB 3 ML VIAL INH SCH (07:30)
[2021-06-18] MEDS: ASPIRIN 81 MG ECTAB PO SCH (08:22)
[2021-06-18] MEDS: FAMOTIDINE 20 MG TAB PO SCH (08:22)
[2021-06-18] MEDS: guaiFENesin 600 MG TABCR PO SCH (08:22)
[2021-06-18] MEDS: AZITHROMYCIN 250 MG TAB PO SCH (08:22)
[2021-06-18] MEDS: predniSONE 20 MG TAB PO SCH (08:23)
[2021-06-18] MEDS: ATORVASTATIN 40 MG TAB PO SCH (08:23)
[2021-06-18] MEDS: UMECLIDINIUM/VILANTEROL 62.5/25MCG 7 PUFFS/INHALER INH SCH (08:24)
[2021-06-18] MEDS: CLOPIDOGREL BISULFATE 75 MG TAB PO SCH (08:27)
--- NOTE | 2021-06-18 08:59 | Palliative Care Consultation ---
Date of Consultation June 18, 2021 Assessment & Plan (1) Palliative care encounter: This patient is a 71 year old male who presented to the [facility] with increased SOB and hypoxia with an SpO2 in the high 70's. He had an EBUS performed on 06/11 and a MANOJ nodule was removed for biopsy, still pending. The family has reportedly been interested in seeking treatment options, while considering overall disposition. Additional PMH includes: COPD, HLD, essential tremor, carotid stenosis, BPH, and AAA. He lives at [place] and is cared for by Dr. Fuentes. There has been an encounter with radiation/oncology to determine next steps, even if for palliation once official biopsy results have returned. Palliative medicine was consulted to discuss overall goals of care. I met with the patient who admits this is all so new to him. He was relatively independent prior to his diagnosis, now he is on 4LNC. We discussed his overall goal. For now, him and his family would like to seek additional information once the biopsy results are returned to discuss overall treatment options, including possible radiation. He is the caregiver for his , and his daughter Aysha, is in town until Friday. I did reach out to his daughter, Aysha, at [phone] and was able to talk to her briefly. She was with her sister and asked to give me a call back - palliative phone number provided. For now, as the patient is [facility], Dr. Fuentes is the main PCP at the [facility], can continue goals of care conversation to ensure appropriate continuity of care. Thanks for consulting Palliative medicine. (2) Hypoxia: (3) Mass of upper lobe of left lung: History of Present Illness Reason for Consultation: goals of care Requesting Physician: Gifty Randolph PA-C Attending Physician: Manolo Harris, History of Present Illness This patient is a 71 year old male who presented to the [facility] with increased SOB and hypoxia with an SpO2 in the high 70's. He had an EBUS performed on 06/11 and a MANOJ nodule was removed for biopsy, still pending. The family has reportedly been interested in seeking treatment options, while considering overall disposition. Additional PMH includes: COPD, HLD, essential tremor, carotid stenosis, BPH, and AAA. He lives at [place] and is cared for by Dr. Fuentes. There has been an encounter with radiation/oncology to determine next steps, even if for palliation once official biopsy results have returned. Palliative medicine was consulted to discuss overall goals of care. Please see A/P for further details. Thanks for consulting Palliative Medicine with this individual. Allergies Allergy/AdvReac Type Severity Reaction Status Date / Time No Known Allergies Allergy Verified 06/12/21 14:36 Home Medications Medication Instructions Recorded Confirmed Type aspirin 81 mg tablet,delayed 81 mg PO QAM 05/26/18 06/12/21 History release clopidogrel 75 mg tablet 75 mg PO QAM 11/30/20 06/12/21 History famotidine 20 mg tablet 20 mg PO QAM 11/30/20 06/12/21 History tiotropium 2.5 mcg-olodaterol 2.5 2 puff INHALATION DAILY #3 inhaler 01/09/21 06/12/21 Rx mcg/actuation mist for inhalation (Stiolto Respimat) ipratropium 0.5 mg-albuterol 3 mg 3 ml INHALATION Q8H PRN #180 ml 02/21/21 06/12/21 Rx (2.5 mg base)/3 mL nebulization soln atorvastatin 40 mg tablet 40 mg PO QAM 02/28/21 06/12/21 History albuterol sulfate 90 mcg/actuation 2 puff INHALATION Q6H PRN #18 g 05/25/21 06/12/21 Rx aerosol inhaler budesonide 0.25 mg/2 mL suspension 0.25 mg INHALATION BID PRN 06/12/21 06/12/21 History for nebulization prednisone 10 mg tablet 10 mg PO DAILY #30 tab 06/16/21 Rx prednisone 20 mg tablet 10 mg PO DIRECTED #18 tab 06/18/21 Rx Patient History Medical History (Updated 06/18/21 @ 12:16 by ADRYAN E[place]) Acute respiratory failure with hypoxia Aortic aneurysm Stable No 3.7 cm infrarenal AAA per 04/10/20 CT Abd/Pelvix BPH (benign prostatic hyperplasia) BPH NOS w ur obs/LUTS Carotid stenosis Critical (near occlusion) stenosis of the proximal LICA per 03/13/21 carotid doppler > reason for plavix per pt Chronic bronchitis Chronic obstructive pulmonary disease Chronic respiratory failure with hypoxia COPD with emphysema Essential tremor Right hand Ex-smoker Exertional shortness of breath GERD (gastroesophageal reflux disease) Hiatal hernia History of colon polyps History of migraine Hx of skin cancer, basal cell Hyperlipidemia Hypersomnia Jaw clicking No locking Lung nodule Reason for upcoming bronchoscopy Mixed restrictive and obstructive lung disease On home oxygen therapy 4L O2 continuous Palliative care encounter Pulmonary hypertension Severe pulmonary hypertension Per 01/2021 echo, RVSP 84mmhg Urinary incontinence Surgical History History of cataract surgery Right History of colonoscopy History of esophagogastroduodenoscopy (EGD) History of tooth extraction Family History Mother Family history of diabetes mellitus Grandmother No problems noted. Grandmother (Maternal) Family hx of colon cancer Other No family history of adverse response to anesthesia Social History Smoking Status: Former smoker Tobacco Type: Cigarettes packs per day: 1; Years Smoked: 2,007; Number of Years Since Quit: 14; Second Hand Exposure: Yes ( A CHILD); Hx Alcohol Use: Yes Alcohol type: beer Hx Substance Use: No Preferred Language: Indonesian Communication Ability: Effective Flatwork Supervisor Required: No Beliefs That Will Affect Care: None marital status: Current Living Situation: Spouse current occupational status: retired Feels Safe at Home: Yes caffeine: Yes Physical Activity Frequency: 3-4 Times per Week Physical Activity Frequency Comment: Treadmill walks Assistive Devices: Denture - Upper and Oxygen - Continuous Review of Systems Review of Systems: [place] System Assessment Scale: Pain: 0/3 SOB: 1/3 Anxiety: 0/3 Lack of appetite: 0/3 Palliative Performance Scale: 40% Physical Exam Constitutional: + frail appearing and comfortable Respiratory: + respiratory distress Auscultation: + diminished lung sounds and + crackles Cardiovascular: Rate/Rhythm: regular rate and regular rhythm Heart Sounds: normal S1 and normal S2 Gastrointestinal (Abdomen): Inspection/Auscultation: abdomen normal to inspection Psychiatric: Orientation: alert and oriented x 3 Results & Data ([facility]) Vital Signs (Past 12 Hours) Vital Signs Temp Pulse Pulse Resp BP BP Pulse Ox 06/18/21 07:35 36.6 C 76 18 144/83 H 97 12/06/21 07:30 79 20 91 06/18/21 07:07 72 06/18/21 02:19 36.4 C L 62 20 125/72 94 06/17/21 23:30 141/84 H 06/17/21 23:22 36.3 C L 81 20 176/103 H 91 06/17/21 22:49 90 26 H 77 L 06/17/21 22:19 76 PG Care Time/CCT Total # of Minutes Spent Total Time Spent with Patient: Total time spent is greater than 50% in coordination of care (as documented) at patient's floor/unit and/or counseling patient: 70 minutes Coding Level of Care Code 84771 Initial Inpt Care Lvl 3 Diagnoses Palliative care encounter Z51.5 Hypoxia R09.02 Mass of upper lobe of left lung R91.8 Time Spent (min) 70
[2021-06-18 09:09] LABS: Eosinophils # (auto) 0.07 K/uL (0-0.5); Eosinophils % (auto) 0.6 %; Hematocrit (blood only) 49.6 % (42-52); Hemoglobin 16.7 g/dL (14.0-18.0); Immature Granulocytes # (auto) 0.03 K/uL (0.00-0.02); Immature Granulocytes % (auto) 0.3 %; Lymphocytes # (auto) 2.43 K/uL (1.2-3.4); Lymphocytes % (auto) 21.8 %; Mean Corpuscular Hemoglobin 34.9 pg (25-34); Mean Corpuscular Hgb Conc 33.7 g/dL (32-36); Mean Corpuscular Volume 103.5 fL (80-100); Mean Platelet Volume 10.6 fL (7.4-10.4); Monocytes # (auto) 0.71 K/uL (0.11-0.59); Monocytes % (auto) 6.4 %; Neutrophils % (auto) 70.9 %; Platelet Count 106 K/uL (130-400); Red Blood Count 4.79 M/uL (4.7-6.1); White Blood Count 11.14 K/uL (4.8-10.8)
[2021-06-18 09:37] LABS: BUN Creatinine Ratio 33.5 (10-20); Calcium 8.5 mg/dl (8.5-10.1); Creatinine Clr Calc Pharmacy 66.1 ml/min; Est GFR (African American) 81.2 ml/min; Est GFR (Non-African American) 70.1 ml/min; Magnesium 2.4 mg/dl (1.8-2.4); Potassium 3.6 mmol/L (3.5-5.1)
[2021-06-18] MEDS ORDERED: ALBUT/IPRATROP 3MG/0.5MG NEB 3 ML VIAL INH PRN (12:09)
--- NOTE | 2021-06-18 15:23 | Discharge Summary ---
Date of Service June 18, 2021 Admission HPI Per Admitting Provider This patient is a 71-year-old male with a history of COPD with chronic bronchitis mixed obstructive and restrictive lung disease, pulmonary nodule, severe pulmonary hypertension, chronic respiratory failure with hypoxia on 4 L nasal cannula, ex-smoker, GERD, dyslipidemia, and BPH who presents to the ER with worsening shortness of breath and hypoxia to pulse ox 77% when he was seen by his PCP in his office this morning He just underwent a biopsy of a lung nodule at [facility] yesterday and reports that ever since he returned home yesterday, he has been having trouble keeping his pulse ox above 85-88%. The highest his home oxygen can go is 5 L and he kept it there until this morning when he came here and was increased to 9 L oxygen mask when I saw him. He denies any chest pain. He had a scant amount of hemoptysis yesterday after the procedure but none since then. He is not really coughing up much sputum. He denies any fevers or chills. No lightheadedness. No nausea or vomiting, no abdominal pains, no diarrhea or constipation. His abdomen does not feel distended and he is not noticed any increased swelling in his legs. In the ER, he had a macrocytosis and mild thrombocytopenia on CBC, mild increase in BUN and creatinine to 26 and 1.37, troponin elevated at 0.05, proBNP elevated at 4352, and a chest x-ray which showed some decreased inspiratory effort but no acute chest disease. A Covid test was negative, and a CT angiogram of the chest was negative for pulmonary emboli, showed moderate dilatation of the right heart chambers with IVC and hepatic veins with reflux of contrast reflecting elevated right heart pressures, trace bilateral pleural effusions, trace perihepatic ascites, and a 2 cm spiculated solid left upper lobe nodule similar to prior CT several weeks ago consistent with bronchogenic carcinoma. There was no pneumothorax. He was given IV Solu-Medrol and a DuoNeb and had some improvement after being placed on 9 L oxygen. He will be admitted for acute on chronic respiratory failure with hypoxia likely secondary to acute exacerbation of COPD. Principal Diagnosis 1. Chronic respiratory failure with hypoxemiapresumed secondary to lung nodule (spiculated and highly suspicious for malignancy) 2. Elevated troponinlikely type II event due to supply/demand ischemia rather than unstable plaque 3. Severe pulmonary hypertension Discharge Exam General: Resting comfortably in his hospital bed at the bedside. NAD. HEENT: Head is AT/NC buccal mucosa is moist and pink Neck: No JVD. Negative hepatojugular reflex Cardiac: Very distant/diminished heart sounds without obvious murmurs, gallops or rubs Lungs: Speaking full sentences on supplemental oxygen. No accessory muscle use. Diminished breath sounds throughout without wheezes, rales or rhonchi Abdomen: Normoactive X4. Soft and nontender in all quadrants. Extremities: No peripheral clubbing cyanosis or edema Neuro: A&O X4 cranial nerves II through XII are grossly intact no focal neuro deficits Skin: No obvious skin lesions or rashes Psych: Appropriate affect pleasant and cooperative Discharge Data Allergies Allergy/AdvReac Type Severity Reaction Status Date / Time No Known Allergies Allergy Verified 06/12/21 14:36 Consultations 06/12/21 14:54 ED Decision to Admit Stat 06/16/21 16:22 Consult Palliative Care Routine Ordered Studies 06/12/21 13:45 CT angio chest PE protocol Stat Chest X-Ray 06/12/21 12:42 XR chest 1V portable CLINICAL HISTORY: Dyspnea. Increasing shortness of breath since bronchoscopy yesterday. COMPARISON STUDY: No previous studies for comparison. TECHNIQUE: 1 view of the chest FINDINGS: Single frontal view of the chest demonstrates the cardiomediastinal silhouette to be within normal limits. There is a decreased inspiratory effort with elevation of the hemidiaphragms and crowding of the bronchovascular markings at the lung bases and centrally. There is no evidence for pneumothorax. The lungs are clear of alveolar opacities. There is no evidence for pleural effusion. There is no evidence for vascular congestion. There is no acute osseous pathology. IMPRESSION: There is a decreased inspiratory effort with otherwise no acute chest disease. ACT 112: Negative or not required by law. Electronically signed by: Tony Mejia M.D. 06/12/2021 1:21 PM Chest CTA 06/12/21 13:45 CT ANGIOGRAPHY OF THE CHEST, PULMONARY EMBOLUS PROTOCOL CLINICAL HISTORY: Shortness of breath. Hypoxia. COMPARISON STUDY: Chest CT March 01, 2021. PET/CT March 21, 2021. Chest CT May 16, 2021. Chest radiograph performed earlier today. TECHNIQUE: Following IV administration of 1 mL of Optiray, helical axial images of the chest were obtained utilizing the pulmonary embolus protocol. Maximal intensity projections and sagittal and coronal reformats were viewed on an independent 3D workstation. IV contrast was administered without complication. Automated exposure control was utilized for the study. A dose lowering technique was utilized adhering to the principles of ALARA. CT DOSE: 344.36 mGy.cm FINDINGS: No pulmonary emboli are identified. Moderate dilatation of the right heart chambers is noted with dilatation of the IVC and hepatic veins with reflux of contrast. There is no pericardial effusion. Several mildly enlarged mediastinal lymph nodes are unchanged since CT of May 16, 2021. Index AP window lymph node measures 1.6 x 1.2 cm. Moderate coronary artery calcification is again noted. There are several calcified mediastinal lymph nodes. Calcified granulomas within the lungs are noted. No pneumothorax is present. There are trace bilateral pleural effusions. Upper lobe predominant emphysema is again noted. A 2 cm spiculated solid left upper lobe nodule is similar to CT of May 16, 2021. This is increased in size since CT of March 01, 2021. A few additional tiny pulmonary nodules are also unchanged and prior CT. These remain indeterminate. Mild ground glass opacities within the lungs are unchanged since prior exam. These are probably chronic. No suspicious lesions are identified within visualized portions of the bony thorax. There are calcified granulomas within the spleen. There is trace perihepatic ascites. IMPRESSION: 1. No pulmonary emboli identified. 2. 2 cm spiculated solid left upper lobe nodule which is similar to CT of May 16, 2021. This has increased in size since chest CT of February 19, 2021. This is consistent with bronchogenic carcinoma. 3. Moderate dilatation of the right heart chambers, IVC and hepatic veins with reflux of contrast. This may reflect elevated right heart pressures. 4. Emphysema. 5. Trace bilateral pleural effusions. Trace perihepatic ascites. 6. No change in groundglass opacities which are likely chronic. ACT 112: Negative or not required by law. Electronically signed by: Hernandez Wade M.D. 06/12/2021 3:44 PM Hospital Course (1) Acute and chronic respiratory failure with hypoxia: Patient with ongoing COPD- requiring 4L since November 2020 - increased oxygen requirement since undergoing EBUS 06/11 for left upper lobe nodule that is suspicious for bronchogenic carcinoma - CTA chest (-) for PE or PNA upon admission (does sowing increasing MANOJ Mass- spiculated and concerning for malignancy). Recent Bx done ([facility]) and results are pending - ? COPD exacerbation on admission but was not the case - Given significant elevation in proBNP, attempted diuresis with a few doses of IV Lasix 40mg with marginal response at best - Adjusted diet to include fluid balance of 1800 mL daily - Repeat BNP even higher at 5800, ? related to his lung nodule - Continued downtitrating O2, down to 10L - goal sats: 88-92% . Pulse Ox in the low 90'2 at rest but does drop into the 70's with even limited exertion. PT DOES NOT FEEL SOB WITH THIS - Treated with Solumedrol, Zithromax, Nebs, mucolytics -- completed 5 days of Zithromax and subsequently transitioned to oral Prednisone (continue taper) - Attempted to obtain sputum culture and gram stain, but pt unable to produce specimen, thus canceled - During this hospitalization, attempted to place pt on BiPAP but he refused - Had a long discussion with RT that patient is established with at [facility] -- she has been concerned about this status over the past month, she feels that he has had a significant decline. She does not feel that he is progressing in pulmonary rehab and would benefit from consideration of hospice care. She believes his baseline O2 requirements is closer to 10L. - Discussed with patient, , and daughter, all on board with plan for home with hospice after initial discussion but now want more information about other alternatives -- such as pursuing radiation therapy - see by palliative medicine to assist pt and family in making decision and establishing goals (at this time, plan is for referral to oncology once pathology reports confirms suspicion to discuss treatment options- even if for palliative radiation) - Attempted to call juliano Mcgee to obtain results of lung biopsy -- however, suspect aggressive malignancy given locally enlarged lymph nodes on imaging and increase in tumor size from Feb to May scans and patient's rapid deterioration - patent typically resides at the [facility]) but given increased O2 requirements, plan is for D/C to [facility]. FU with PCP and recommend referral to oncology to discuss treatment options, Also Recommend FU with establiched production supply equipment tender (Dr. Wang) (2) Elevated troponin: - Suspect this is type II secondary to demand ischemia related to worsening hypoxia (0.050 - 0.060 - 0.028) - no chest pain or EKG changes - Continue ASA, Plavix, Lipitor - Outpatient f/u with cardiology (3) Chronic obstructive pulmonary disease: - As above with acute exacerbation of COPD - Treatment as above (#1) - Continue home maintenance inhaler (4) Pulmonary nodule: - Now status post biopsy at [facility] in [place] on 06/11 - He will follow-up for results of that -- attempted to obtain results from [facility] w/o success. - Poor prognosis given decline over the past month (5) Severe pulmonary hypertension: - Noted - On chronic O2 therapy (4L) -- see above - Diuresis attempted, but do not believe at this time he is in fulminant CHF - Pulmonary HTN is what prompted EBUS at [facility] (suspect result of his COPD and perhaps this lung mass which is concerning for malignancy) (6) GERD (gastroesophageal reflux disease): - continue pepcid (7) Essential tremor: - In the right hand - Not currently on medication for this (8) Hyperlipidemia: - Continue statin (9) Carotid stenosis: - Near complete occlusion of LICA - Asymptomatic - Continue aspirin, Plavix, and statin During this hospitalization-- time spent with patient to establish his overall goals of care. He recognizes that his prognosis is poor and anticipates that his overall life expectancy may not be 6 months like he was hoping. Unfortunately, I do not suspect he would do well with aggressive intervention for his malignancy but perhaps palliative radiation is an option. His main goals are to ensure that his is cared for, that his daughter is made legal POA, and his finances are in order. His daughter is in the process of attempting to transition his into personal care. Pt would not be able to be in personal care with requiring 10L of high flow O2, would need to make sure that the SNF portion of the facility can accommodate him and that he understands that would mean he would be from his . Code status updated-- he es tablished that for now he would like his code status to be DNI, but is agreeable to compressions and defibrillation. The code status conversation was witnessed by RN and has been documented accordingly in the chart. Total Time Total Time Spent Total Time Spent (In Minutes): 45 Discharge Plan Discharge Items Patient Disposition: Transfer Group Home Fac Reason For Visit: ACUTE ON CHRONIC HYPOXIA, COPD EXACERBATION, +TROP Discharge Diagnosis: Acute on chronic respiratory failure due to advancing lung cancer Condition on Discharge: Fair Activity: Resume your previous activity Activity Comment: As tolerated Non-emergency contact: Primary Care Provider and Retail Associate Manager Bilingual Call non-emergency contact if: you have any medication questions and your symptoms worsen [facility] - Diet: Regular Addtl Attending Provider Instructions: - Taper steroids as directed. - Continue wearing oxygen 10L as directed (may taper to keep pulse ox between 88-90%) - Follow up with [facility] regarding results of lung biopsy. - pending results of recent bx, consider referral to Oncology to discuss treatment options - Follow up with primary care physician within 1 week of discharge. Pending Studies at Discharge: Yes Studies:: Lung biopsy report from [facility] -- results unknown at this time. Stand-Alone Forms: My CYBRA Skilled Items Patient informed of condition?: Yes DNR: No Discharge Level of Care: Skilled Communicable Disease: No Discharge Prognosis: Other Lines: None Urinary Catheter: No Medications and DC Order Prescriptions: New prednisone 10 mg tablet 10 mg PO DAILY Qty: 30 RF: 0 prednisone 20 mg Tablet 10 mg PO DIRECTED Qty: 18 RF: 0 Continued Stiolto Respimat 2.5-2.5 mcg/actuation mist 2 puff inhalation DAILY Qty: 3 RF: 1 albuterol sulfate 90 mcg/actuation HFA aerosol inhaler 2 puff inhalation Q6H PRN (Reason: Shortness Of Breath Or Wheezing) Qty: 18 RF: 3 famotidine 20 mg tablet 20 mg PO QAM RF: 0 clopidogrel 75 mg tablet 75 mg PO QAM RF: 0 ipratropium-albuterol 0.5 mg-3 mg(2.5 mg base)/3 mL solution for nebulization 3 ml inhalation Q8H PRN (Reason: shortness of breath or wheezing) Qty: 180 RF: 2 aspirin 81 mg Tablet,Delayed Release (Dr/Ec) 81 mg PO QAM RF: 0 atorvastatin 40 mg Tablet 40 mg PO QAM RF: 0 budesonide 0.25 mg/2 mL suspension for nebulization 0.25 mg inhalation BID PRN (Reason: Shortness Of Breath) RF: 0 Discharge Orders: Discharge Order (Routine); Ordered 06/18/21 Ordered By: Lidia Maxwell Admission Data Admit Date/Time: 06/12/21 15:39 Attending Provider: Manolo Harris Admit Provider: Katherine Gustafson Primary Care Provider: Darnell Ortega Other Providers: Katherine Gustafson ; Renuka Ortega ; Cynthia Mariano Other Interventions: Discharge Summary Assessment (RN) Last Done: 06/18/21 10:48 Supervising Physician Co-Signing Physician Notes Patient seen and examined on the day of discharge. I agree with the discharge summary by Lidia BLAKE. I have reviewed the chart including labs, imaging and plans for discharge. patient breathing at baseline, gets short of breath on exertion eating okay plans to follow up with oncology, pulmonology about spiculated mass, options of radiation vs chemotherapy - Chronic respiratory failure, spiculated lung nodule, s/p bronchoscopy with biopsy discuss options with Dr. Fuentes, palliative approach vs limited interventions like radiation therapy Coding Level of Care Code D/C DAY MANAGEMENT >30 MINS Diagnoses Acute and chronic respiratory failure with hypoxia J96.21 Elevated troponin R77.8 Chronic obstructive pulmonary disease J44.9 Pulmonary nodule R91.1 Severe pulmonary hypertension I27.20 GERD (gastroesophageal reflux disease) K21.9 Essential tremor G25.0 Hyperlipidemia E78.5 Carotid stenosis I65.29
[2021-06-18] MEDS ORDERED: DOCUSATE SODIUM 100 MG CAP PO ONE (21:03)
--- NOTE | 2021-06-27 14:33 | Coding Query ---
CODING QUERY To promote full compliance with coding requirements relating to patient care, provider participation is requested in all cases of surgical coder uncertainty. Please assist us with the question(s) below: Coding Question(s): There is acute on chronic respiratory failure with hypoxia documented in the recored and the Discharge Summary documents, under Principal Diagnosis area, "Chronic respiratory failure with hypoxemia - presumed secondary to lung nodule (spiculated and highly suspicious for malignancy)", and down lower, under Discharge Plan, there is documentation of, " Discharge Diagnosis: Acute on chronic respiratory failure due to advancing lung cancer". It is not clear if there was Acute on Chronic Respiratory Failure with hypoxemia or if there was only Chronic Respiratory Failure with hypoxemia treated during admission. Please specify below, in your clinical opinion. ( x ) Acute on Chronic Respiratory Failure with hypoxemia ( ) Chronic Respiratory Failure with Hypoxia ( ) Other: Please Specify Physician's Response(s): Thank you Mica Gilman Principal Diagnosis: "that condition established after study, to be chiefly responsible for occasioning the admission of the patient to the hospital for care." Co-Existing Principal Diagnosis: "when two or more diagnoses equally meet the criteria for principal diagnosis as determined by the circumstances of admission, diagnostic work up, and/or therapy provided, and the Alphabetic Index, Tabular List, or another coding guideline does not provide sequencing direction, any one of the diagnoses may be sequenced first." "When the physician has documented what appears to be a current diagnosis in the body of the record, but has not included the diagnosis in the final diagnostic statement, the physician should be asked whether the diagnosis should be added." (Source [facility]oding [facility] 2 QTR90. p3-4) SARA
--- NOTE | 2021-06-27 14:38 | Coding Query ---
CODING QUERY To promote full compliance with coding requirements relating to patient care, provider participation is requested in all cases of rn lvn uncertainty. Please assist us with the question(s) below: Coding Question(s): There is documentation on the Discharge Summary of, "Elevated troponin - likely type II event due to supply/demand ischemia rather than unstable plaque", and , "Elevated troponin: - Suspect this is type II secondary to demand ischemia related to worsening hypoxia". Please specify below, in your clinical opinion, regarding Type II event due to supply/demand ischemia. ( ) Type II event is Demand Ischemia only ( x ) Type II event is other event due to supply/demand ischemia. Please specify the event:_hypoxemia ( ) Other: Please specify Physician's Response(s): Thank you Mica Gilman Principal Diagnosis: "that condition established after study, to be chiefly responsible for occasioning the admission of the patient to the hospital for care." Co-Existing Principal Diagnosis: "when two or more diagnoses equally meet the criteria for principal diagnosis as determined by the circumstances of admission, diagnostic work up, and/or therapy provided, and the Alphabetic Index, Tabular List, or another coding guideline does not provide sequencing direction, any one of the diagnoses may be sequenced first." "When the physician has documented what appears to be a current diagnosis in the body of the record, but has not included the diagnosis in the final diagnostic statement, the physician should be asked whether the diagnosis should be added." (Source Coding [facility] 2 QTR90. p3-4) SARA
== END 2021-06-18 14:35 | DRG 189 ==
LOC: ED 11:48 → SUATTDRO 15:39 → EDINP 15:39 → 2W 18:45 → 2N 06-14 16:02

== ENCOUNTER 2021-10-24 09:13 | Inpatient (IN) ==
[2021-10-24] MEDS ORDERED: ALBUT/IPRATROP 3MG/0.5MG NEB 3 ML VIAL INH STA (10:12)
[2021-10-24 10:20] LABS: Basophils # (auto) 0.01 K/uL (0-0.2); Basophils % (auto) 0.1 %; Eosinophils # (auto) 0.11 K/uL (0-0.5); Eosinophils % (auto) 1.5 %; Hematocrit (blood only) 42.8 % (42-52); Hemoglobin 14.1 g/dL (14.0-18.0); Immature Granulocytes # (auto) 0.02 K/uL (0.00-0.02); Immature Granulocytes % (auto) 0.3 %; Lymphocytes # (auto) 1.36 K/uL (1.2-3.4); Lymphocytes % (auto) 18.7 %; Mean Corpuscular Hemoglobin 35.1 pg (25-34); Mean Corpuscular Hgb Conc 32.9 g/dL (32-36); Mean Corpuscular Volume 106.5 fL (80-100); Mean Platelet Volume 10.2 fL (7.4-10.4); Monocytes # (auto) 0.69 K/uL (0.11-0.59); Monocytes % (auto) 9.5 %; Neutrophils % (auto) 69.9 %; Platelet Count 131 K/uL (130-400); RDW Coefficient of Variation 15.5 % (11.5-14.5); RDW Standard Deviation 59.8 fL (36.4-46.3); Red Blood Count 4.02 M/uL (4.7-6.1); White Blood Count 7.29 K/uL (4.8-10.8)
--- NOTE | 2021-10-24 10:21 | Emergency Department Note ---
Impression & Plan Hypoxia, SOB (shortness of breath), COPD exacerbation, Elevated troponin ED Provider Note NAME: NAOMIE CARVALHO AGE: 71 SEX: M : 1950 ARRIVES VIA: Ambulance INFORMANT: [Patient] ED PROVIDER(S): [Koffi Garcia MD] CHIEF COMPLAINT: Short of breath HISTORY OF PRESENT ILLNESS: The patient is a 71-year-old male who has had 2 days of increasing shortness of breath. He has lung disease and typically wears anywhere from 7 to 9 L of oxygen. His sats were in the 80s by report. The patient has noticed some nasal congestion. No increased cough. No fever. No chest pain. He has some leg edema but this has been baseline as of late. Of note, the patient is a DNR. He has been vaccinated for Covid and influenza. No recent sick contacts. REVIEW OF SYSTEMS: See HPI for pertinent positives and negatives. A total of ten systems were reviewed and were otherwise negative. PMHx/PSHx: See Below SOCIAL HISTORY: See Below. PHYSICAL EXAM: GENERAL: Patient is in no acute distress. HEENT: No acute trauma, normocephalic atraumatic, mucous membranes dry, no nasal congestion, no scleral icterus. NECK: No stridor, no adenopathy, no meningismus, trachea is midline. LUNGS: No obvious respiratory distress. There are some crackles on the left. No wheezing. HEART: Without murmurs gallops or rubs, regular rate and rhythm. ABDOMEN: Soft, nontender, bowel sounds positive, no hernias, no peritonitis. EXTREMITIES: No cyanosis, mild to moderate bilateral pedal edema with some chronic skin change, full range of motion of all the joints without pain or difficulty, no signs for acute trauma. NEUROLOGIC: Oriented x 3, no acute motor or sensory deficits, no focal weakness. SKIN: No rash, no jaundice, no diaphoresis. DIFFERENTIAL DIAGNOSIS: Reactive airway disease, COVID-19, influenza, pneumonia, pneumothorax, COPD, CHF, infection, cardiac ischemia, pulmonary embolism, bronchitis, musculoskeletal, gastrointestinal, as well as other pathologies. EMERGENCY DEPARTMENT COURSE/PROCEDURES: ECG: Indication was shortness of breath. The ECG shows a normal sinus rhythm with an incomplete right bundle branch block. The rate is 76. There are some T wave inversions in the anterior leads. There is no ST elevation. The QTc is 445. Compared to an ECG from 12 June 2021, I see no significant change. Continuous Cardiac Monitoring: An order was placed for continuous cardiac monitoring. The monitor shows a rate of 84 with normal sinus rhythm. Critical Care Note: I have personally spent 51 minutes of critical care time in the direct management of this patient. This includes bedside care, interpretation of diagnostic studies, and testing, discussion with consultants, patient, and family members, and other required patient management activities. This 51 minutes is in excess of all separately billable procedures. MEDICAL DECISION MAKING: There is no leukocytosis or worrisome anemia. There is a normal platelet count. No coagulopathy. No renal failure or significant electrolyte abnormality. Th ere were a few subtle liver enzyme elevations but nothing of true concern. BNP was elevated consistent with potential fluid overload. Covid, influenza and RSV testing was negative. Chest x-ray shows some chronic change, no obvious pneumonia, no pneumothorax. Chest CT did not show any PE, no obvious pneumonia. ECG showed a normal sinus rhythm with some chronic change. No ST elevation. Cardiac troponin testing x2 was elevated although there was no delta change, the elevation was likely consistent with mismatch. The patient was aggressively managed given the hypoxia. He was a DNR and was not to be intubated. He did refuse BiPAP. The patient received 1 inch of nitroglycerin paste for the potential of fluid overload. He was given 40 mg of IV Lasix. He was given IV Solu-Medrol, 60 mg. He received a DuoNeb. He was eventually placed on high flow oxygen. Patient is doing better on the high flow O2. His saturation is adequate. He does not seem in significant distress. I suspect he is having a flare of his COPD. A component of fluid overload may also be present given the edema to his lower extremities. The patient will be hospitalized, I spoke with the patient and case management. The on-call hospitalist was consulted. Past Med/Surg History Medical History Acute respiratory failure with hypoxia Aortic aneurysm Stable No 3.7 cm infrarenal AAA per 04/10/20 CT Abd/Pelvix BPH (benign prostatic hyperplasia) BPH NOS w ur obs/LUTS Carotid stenosis Critical (near occlusion) stenosis of the proximal LICA per 8/31/21 carotid doppler > reason for plavix per pt Chronic bronchitis Chronic obstructive pulmonary disease Chronic respiratory failure with hypoxia COPD with emphysema Essential tremor Right hand Ex-smoker Exertional shortness of breath GERD (gastroesophageal reflux disease) Hiatal hernia History of colon polyps History of migraine Hx of skin cancer, basal cell Hyperlipidemia Hypersomnia Jaw clicking No locking Lung nodule Reason for upcoming bronchoscopy Mixed restrictive and obstructive lung disease On home oxygen therapy 4L O2 continuous Palliative care encounter Pulmonary hypertension Severe pulmonary hypertension Per 01/2021 echo, RVSP 84mmhg Urinary incontinence Surgical History History of cataract surgery Right History of colonoscopy History of esophagogastroduodenoscopy (EGD) History of tooth extraction Family History Mother Family history of diabetes mellitus Grandmother No problems noted. Grandmother (Maternal) Family hx of colon cancer Other No family history of adverse response to anesthesia Social History Smoking Status: Former smoker Tobacco Type: Cigarettes packs per day: 1; Years Smoked: 2,007; Number of Years Since Quit: 14; Second Hand Exposure: Yes ( A CHILD); Hx Alcohol Use: Yes Alcohol type: beer Hx Substance Use: No Preferred Language: Chadian Communication Ability: Effective Neurosurgical Nurse Practitioner Required: No Beliefs That Will Affect Care: None marital status: Current Living Situation: Spouse current occupational status: retired Feels Safe at Home: Yes caffeine: Yes Physical Activity Frequency: 3-4 Times per Week Physical Activity Frequency Comment: Treadmill walks Assistive Devices: Denture - Upper and Oxygen - Continuous Allergies Allergies Allergy/AdvReac Type Severity Reaction Status Date / Time No Known Allergies Allergy Verified 09/17/21 14:03 Home Meds Home Medications Medication Instructions Recorded Confirmed aspirin 81 mg tablet,delayed 81 mg PO QAM 05/26/18 10/24/21 release clopidogrel 75 mg tablet 75 mg PO QAM 11/30/20 10/24/21 famotidine 20 mg tablet 20 mg PO QAM 11/30/20 10/24/21 atorvastatin 40 mg tablet 40 mg PO QAM 02/28/21 10/24/21 Previous Rx's Medication Instructions Recorded tiotropium 2.5 mcg-olodaterol 2.5 2 puff INHALATION DAILY #3 inhaler 01/09/21 mcg/actuation mist for inhalation (Stiolto Respimat) albuterol sulfate 90 mcg/actuation 2 puff INHALATION Q6H PRN #18 g 09/10/21 aerosol inhaler budesonide 0.25 mg/2 mL suspension 0.25 mg INHALATION BID PRN #60 ml 09/10/21 for nebulization ipratropium 0.5 mg-albuterol 3 mg 3 ml INHALATION Q8H PRN #180 ml 09/10/21 (2.5 mg base)/3 mL nebulization soln sildenafil (pulm.hypertension) 10 5 mg PO TID #112 ml 09/10/21 mg/mL oral suspension nebulizers #1 ea 10/11/21 Results & Data (ED) Vital Signs Vital Signs - 24 hr 10/24/21 09:15 10/24/21 09:23 10/24/21 09:27 Temperature 37.1 C Temperature Source Oral Pulse Rate 82 78 80 Pulse Rate from SpO2 Sensor 78 80 Respiratory Rate 38 H 31 H 27 H Respiratory Effort / Characteristics Spontaneous Labored Short of Breath Respiratory Depth Shallow Respiratory Pattern Tachypnea Blood Pressure 135/83 138/78 Blood Pressure Mean 100 98 Blood Pressure Position Semi-fowlers Pulse Oximetry 80 L 91 92 Oxygen Delivery Method Oxymask Oxygen Flow Rate 7 Sepsis Recent Fever Within 48 Hours No Sepsis New/Unexplained Change in Mental Status N/A Sepsis Action Taken by Nursing No Action Required Oxygen Flow Rate - Titration 10 Pulse Oximetry Post Tiitration 91 10/24/21 09:30 10/24/21 09:40 10/24/21 09:50 Temperature Temperature Source Pulse Rate 75 76 80 Pulse Rate from SpO2 Sensor 75 77 80 Respiratory Rate 29 H 19 24 Respiratory Effort / Characteristics Respiratory Depth Respiratory Pattern Blood Pressure 135/83 Blood Pressure Mean 100 Blood Pressure Position Pulse Oximetry 93 93 91 Oxygen Delivery Method Oxygen Flow Rate Sepsis Recent Fever Within 48 Hours Sepsis New/Unexplained Change in Mental Status Sepsis Action Taken by Nursing Oxygen Flow Rate - Titration Pulse Oximetry Post Tiitration 10/24/21 10:00 10/24/21 10:10 10/24/21 10:12 Temperature Temperature Source Pulse Rate 77 84 80 Pulse Rate from SpO2 Sensor 76 84 Respiratory Rate 24 37 H 32 H Respiratory Effort / Characteristics Respiratory Depth Respiratory Pattern Blood Pressure 130/76 Blood Pressure Mean 94 Blood Pressure Position Pulse Oximetry 92 90 92 Oxygen Delivery Method Oxymask Oxygen Flow Rate 7 Sepsis Recent Fever Within 48 Hours Sepsis New/Unexplained Change in Mental Status Sepsis Action Taken by Nursing Oxygen Flow Rate - Titration 10 Pulse Oximetry Post Tiitration 93 10/24/21 10:20 10/24/21 10:30 10/24/21 10:40 Temperature Temperature Source Pulse Rate 79 90 79 Pulse Rate from SpO2 Sensor 78 91 H 79 Respiratory Rate 27 H 33 H 26 H Respiratory Effort / Characteristics Respiratory Depth Respiratory Pattern Blood Pressure 148/84 H Blood Pressure Mean 105 Blood Pressure Position Pulse Oximetry 92 80 L 89 L Oxygen Delivery Method Oxygen Flow Rate Sepsis Recent Fever Within 48 Hours Sepsis New/Unexplained Change in Mental Status Sepsis Action Taken by Nursing Oxygen Flow Rate - Titration Pulse Oximetry Post Tiitration 10/24/21 10:50 10/24/21 11:00 10/24/21 11:26 Temperature Temperature Source Pulse Rate 81 87 90 Pulse Rate from SpO2 Sensor 81 85 89 Respiratory Rate 21 26 H 28 H Respiratory Effort / Characteristics Respiratory Depth Respiratory Pattern Blood Pressure 156/92 H Blood Pressure Mean 113 Blood Pressure Position Pulse Oximetry 91 91 76 L Oxygen Delivery Method Oxygen Flow Rate Sepsis Recent Fever Within 48 Hours Sepsis New/Unexplained Change in Mental Status Sepsis Action Taken by Nursing Oxygen Flow Rate - Titration Pulse Oximetry Post Tiitration 10/24/21 11:30 10/24/21 11:40 10/24/21 11:50 Temperature Temperature Source Pulse Rate 85 82 83 Pulse Rate from SpO2 Sensor 84 85 83 Respiratory Rate 28 H 22 20 Respiratory Effort / Characteristics Respiratory Depth Respiratory Pattern Blood Pressure 152/86 H Blood Pressure Mean 108 Blood Pressure Position Pulse Oximetry 85 L 87 L 90 Oxygen Delivery Method Oxygen Flow Rate Sepsis Recent Fever Within 48 Hours Sepsis New/Unexplained Change in Mental Status Sepsis Action Taken by Nursing Oxygen Flow Rate - Titration Pulse Oximetry Post Tiitration 10/24/21 12:00 10/24/21 12:10 10/24/21 12:20 Temperature Temperature Source Pulse Rate 80 96 H 83 Pulse Rate from SpO2 Sensor 80 82 83 Respiratory Rate 25 H 22 25 H Respiratory Effort / Characteristics Respiratory Depth Respiratory Pattern Blood Pressure 153/94 H Blood Pressure Mean 113 Blood Pressure Position Pulse Oximetry 93 91 91 Oxygen Delivery Method Oxygen Flow Rate Sepsis Recent Fever Within 48 Hours Sepsis New/Unexplained Change in Mental Status Sepsis Action Taken by Nursing Oxygen Flow Rate - Titration Pulse Oximetry Post Tiitration 10/24/21 12:30 10/24/21 12:40 Temperature Temperature Source Pulse Rate 80 77 Pulse Rate from SpO2 Sensor 80 77 Respiratory Rate 20 26 H Respiratory Effort / Characteristics Respiratory Depth Respiratory Pattern Blood Pressure 148/96 H Blood Pressure Mean 113 Blood Pressure Position Pulse Oximetry 93 90 Oxygen Delivery Method Oxygen Flow Rate Sepsis Recent Fever Within 48 Hours Sepsis New/Unexplained Change in Mental Status Sepsis Action Taken by Nursing Oxygen Flow Rate - Titration Pulse Oximetry Post Tiitration Home Medications Current Medication List: was personally reviewed by me Laboratory Data Attestation: I reviewed the patient's lab results. Result diagrams: 10/24/21 09:28 10/24/21 09:28 Lab Results 10/24/21 10/24/21 10/24/21 Range/Units 09:28 09:28 09:28 WBC 7.29 (4.8-10.8) K/uL RBC 4.02 L (4.7-6.1) M/uL Hgb 14.1 (14.0-18.0) g/dL Hct 42.8 (42-52) % MCV 106.5 H (80-100) fL MCH 35.1 H (25-34) pg MCHC 32.9 (32-36) g/dL RDW Std Deviation 59.8 H (36.4-46.3) fL RDW Coeff of Megan 15.5 H (11.5-14.5) % Plt Count 131 (130-400) K/uL MPV 10.2 (7.4-10.4) fL Immature Gran % (Auto) 0.3 % Neut % (Auto) 69.9 % Lymph % (Auto) 18.7 % [place] % (Auto) 9.5 % Eos % (Auto) 1.5 % Baso % (Auto) 0.1 % Neut # (Auto) 5.10 (1.4-6.5) K/uL Lymph # (Auto) 1.36 (1.2-3.4) K/uL [place] # (Auto) 0.69 H (0.11-0.59) K/uL Eos # (Auto) 0.11 (0-0.5) K/uL Baso # (Auto) 0.01 (0-0.2) K/uL Immature Gran # (Auto) 0.02 (0.00-0.02) K/uL PT 12.0 (9.0-12.0) Seconds INR 1.1 (0.9-1.1) APTT 25.2 (21.0-31.0) Seconds PTT Ratio 0.9 Sodium (136-145) mmol/L Potassium (3.5-5.1) mmol/L Chloride (98-107) mmol/L Carbon Dioxide (21-32) mmol/L Anion Gap (3-11) BUN (6-23) mg/dl Creatinine (0.6-1.4) mg/dl Est Cr Clr Drug Dosing ml/min Est GFR ( Amer) ml/min Est GFR (Non-Af Amer) ml/min BUN/Creatinine Ratio (10-20) Glucose (70-99(Fasting)) mg/dl Calcium (8.5-10.1) mg/dl Magnesium (1.7-2.4) mg/dl Total Bilirubin (0.2-1.0) mg/dl AST (13-39) U/L ALT (7-52) U/L Alkaline Phosphatase (34-104) U/L Troponin I High Sens 51.8 H* (0-20) pg/ml B-Natriuretic Peptide (0-100) pg/ml Total Protein (6.0-8.3) gm/dl Albumin (3.4-5.0) gm/dl Globulin (2.5-4.0) gm/dl Albumin/Globulin Ratio (0.9-2) SARS-CoV-2 (PCR) (Negative) Influenza Type A (PCR) (Neg) Influenza Type B (PCR) (Neg) RSV (RT-PCR) (Neg) 10/24/21 10/24/21 10/24/21 Range/Units 09:28 10:28 10:40 WBC (4.8-10.8) K/uL RBC (4.7-6.1) M/uL Hgb (14.0-18.0) g/dL Hct (42-52) % MCV (80-100) fL MCH (25-34) pg MCHC (32-36) g/dL RDW Std Deviation (36.4-46.3) fL RDW Coeff of Megan (11.5-14.5) % Plt Count (130-400) K/uL MPV (7.4-10.4) fL Immature Gran % (Auto) % Neut % (Auto) % Lymph % (Auto) % [place] % (Auto) % Eos % (Auto) % Baso % (Auto) % Neut # (Auto) (1.4-6.5) K/uL Lymph # (Auto) (1.2-3.4) K/uL [place] # (Auto) (0.11-0.59) K/uL Eos # (Auto) (0-0.5) K/uL Baso # (Auto) (0-0.2) K/uL Immature Gran # (Auto) (0.00-0.02) K/uL PT (9.0-12.0) Seconds INR (0.9-1.1) APTT (21.0-31.0) Seconds PTT Ratio Sodium 140 (136-145) mmol/L Potassium 3.8 (3.5-5.1) mmol/L Chloride 107 (98-107) mmol/L Carbon Dioxide 25 (21-32) mmol/L Anion Gap 8 (3-11) BUN 21 (6-23) mg/dl Creatinine 0.99 (0.6-1.4) mg/dl Est Cr Clr Drug Dosing 70.8 ml/min Est GFR ( Amer) 87.2 ml/min Est GFR (Non-Af Amer) 75.2 ml/min BUN/Creatinine Ratio 21.2 H (10-20) Glucose 95 (70-99(Fasting)) mg/dl Calcium 9.7 (8.5-10.1) mg/dl Magnesium 1.9 (1.7-2.4) mg/dl Total Bilirubin 1.3 H (0.2-1.0) mg/dl AST 55 H (13-39) U/L ALT 10 (7-52) U/L Alkaline Phosphatase 99 (34-104) U/L Troponin I High Sens (0-20) pg/ml B-Natriuretic Peptide 701 H (0-100) pg/ml Total Protein 6.4 (6.0-8.3) gm/dl Albumin 3.8 (3.4-5.0) gm/dl Globulin 2.6 (2.5-4.0) gm/dl Albumin/Globulin Ratio 1.5 (0.9-2) SARS-CoV-2 (PCR) NEGATIVE (Negative) Influenza Type A (PCR) Negative (Neg) Influenza Type B (PCR) Negative (Neg) RSV (RT-PCR) Negative (Neg) 10/24/21 Range/Units 11:52 WBC (4.8-10.8) K/uL RBC (4.7-6.1) M/uL Hgb (14.0-18.0) g/dL Hct (42-52) % MCV (80-100) fL MCH (25-34) pg MCHC (32-36) g/dL RDW Std Deviation (36.4-46.3) fL RDW Coeff of Megan (11.5-14.5) % Plt Count (130-400) K/uL MPV (7.4-10.4) fL Immature Gran % (Auto) % Neut % (Auto) % Lymph % (Auto) % [place] % (Auto) % Eos % (Auto) % Baso % (Auto) % Neut # (Auto) (1.4-6.5) K/uL Lymph # (Auto) (1.2-3.4) K/uL [place] # (Auto) (0.11-0.59) K/uL Eos # (Auto) (0-0.5) K/uL Baso # (Auto) (0-0.2) K/uL Immature Gran # (Auto) (0.00-0.02) K/uL PT (9.0-12.0) Seconds INR (0.9-1.1) APTT (21.0-31.0) Seconds PTT Ratio Sodium (136-145) mmol/L Potassium (3.5-5.1) mmol/L Chloride (98-107) mmol/L Carbon Dioxide (21-32) mmol/L Anion Gap (3-11) BUN (6-23) mg/dl Creatinine (0.6-1.4) mg/dl Est Cr Clr Drug Dosing ml/min Est GFR ( Amer) ml/min Est GFR (Non-Af Amer) ml/min BUN/Creatinine Ratio (10-20) Glucose (70-99(Fasting)) mg/dl Calcium (8.5-10.1) mg/dl Magnesium (1.7-2.4) mg/dl Total Bilirubin (0.2-1.0) mg/dl AST (13-39) U/L ALT (7-52) U/L Alkaline Phosphatase (34-104) U/L Troponin I High Sens 49.2 H (0-20) pg/ml B-Natriuretic Peptide (0-100) pg/ml Total Protein (6.0-8.3) gm/dl Albumin (3.4-5.0) gm/dl Globulin (2.5-4.0) gm/dl Albumin/Globulin Ratio (0.9-2) SARS-CoV-2 (PCR) (Negative) Influenza Type A (PCR) (Neg) Influenza Type B (PCR) (Neg) RSV (RT-PCR) (Neg) Administered Medications Discontinued Medications Albuterol (Albut/Ipratrop 3mg/0.5mg Neb 3 Ml Vial) 3 ml INH NOW STA Stop: 10/24/21 10:13 Last Admin: 10/24/21 10:34 Dose: 3 ml Documented by: [id number] Furosemide (Furosemide 40 Mg/4 Ml Vial) 40 mg IV ONE ONE Stop: 10/24/21 11:50 Last Admin: 10/24/21 12:04 Dose: 40 mg Documented by: [id number] Ioversol (Optiray 320 125ml) 121 ml IV ONCE ONE Stop: 10/24/21 11:23 Last Admin: 10/24/21 11:22 Dose: 121 ml Documented by: [id number] Methylprednisolone (Methylprednisolone 125 Mg/2 Ml Vial) 60 mg IV NOW STA Stop: 10/24/21 11:52 Last Admin: 10/24/21 12:04 Dose: 60 mg Documented by: [id number] Nitroglycerin (Nitroglycerin 2% Ointment 30gm Tube) 1 inch EXT NOW STA Stop: 10/24/21 11:50 Last Admin: 10/24/21 12:04 Dose: 1 inch Documented by: [id number] Imaging Data Radiologist's Impression: Chest CTA 10/24/21 10:12 CT angio chest PE protocol CLINICAL HISTORY: Severe shortness of breath. Evaluate for pulmonary embolus. History of lung cancer COMPARISON STUDY: No previous studies for comparison. CT DOSE: 394.91 mGy.cm TECHNIQUE: CT Angio of the chest was performed.followed by image post p rocessing with coronal, and sagittal MIP reformats. Contrast Volume: Optiray 320, 121 ml FINDINGS: Breathing motion artifact is present. Vasculature: There is homogeneous perfusion of the pulmonary vasculature bilaterally. No intraluminal filling defects or evidence for pulmonary embolus is seen. Airway: The airway is clear. No endobronchial lesion is identified. Lungs: Compared to previous examination, there has been slight interval decrease in previously identified spiculated mass within the left upper lobe now measuring approximately 1.9 x 1.2 cm compared to 2.2 x 1.5 cm on the previous study. No additional nodules are identified. Centrilobular emphysematous changes are again seen bilaterally. Dependent edema is seen in the lung bases posteriorly. Pleura: There is minimal pleural thickening at both lung bases posteriorly with no significant effusion present. There is no evidence for pneumothorax. Mediastinum: There is evidence for stable mediastinal adenopathy. The heart size is within normal limits. The thoracic aorta is within normal limits. There is no evidence for pericardial effusion. Upper abdomen:The adrenal glands are normal bilaterally. Osseous structures: There is no acute osseous pathology. Impression: 1. No CTA evidence for pulmonary embolus. 2. Slight interval decrease in size of spiculated left upper lobe pulmonary nodule. 3. Centrilobular emphysematous changes with otherwise no acute chest disease. 4. Pleural thickening at the lung bases posteriorly with no gross effusion. ACT 112: Negative or not required by law. Electronically signed by: Tony Mejia M.D. 10/24/2021 11:53 AM Chest X-Ray 10/24/21 10:12 XR chest 1V portable HISTORY: 71 years-old Male SOB acute shortness of breath COMPARISON: Chest radiograph and CTA chest 06/12/2021, chest CT 08/20/2021. TECHNIQUE: Portable AP view of the chest FINDINGS: Cardiac silhouette is enlarged, unchanged. Emphysema with bibasilar predominant interstitial coarsening, mildly progressed from prior. 2.3 cm left upper lobe with ill-defined 10 mm right upper lobe nodules. No pneumothorax or large pleural effusion. Degenerative changes of the shoulders and spine. IMPRESSION: 1. Emphysema with mildly progressed bibasilar interstitial coarsening. Correlate clinically to exclude an infectious or inflammatory pneumonitis. 2. Irregular biapical pulmonary nodules are better characterized on the comparison chest CT. ACT 112: Negative or not required by law. The above report was generated using voice recognition software. It may contain grammatical, syntax or spelling errors. Electronically signed by: Mikey Cid M.D. 10/24/2021 10:48 AM Discharge Plan Visit Data Chief Complaint: Shortness of Breath/Dyspnea Stated Complaint: BREATHING DIFF. ED Provider: Koffi Garcia Discharge Problem: Hypoxia, SOB (shortness of breath), COPD exacerbation, Elevated troponin Patient Disposition: Admitted As Inpatient Condition: Fair Forms Stand Alone Forms: [facility] Prescriptions Prescriptions: No Action Stiolto Respimat 2.5-2.5 mcg/actuation mist 2 puff inhalation DAILY Qty: 3 RF: 1 budesonide 0.25 mg/2 mL suspension for nebulization 0.25 mg inhalation BID PRN (Reason: Shortness Of Breath) Qty: 60 RF: 6 (DME) nebulizers Misc See Rx Instructions .Route Qty: 1 RF: 0 famotidine 20 mg tablet 20 mg PO QAM RF: 0 clopidogrel 75 mg tablet 75 mg PO QAM RF: 0 albuterol sulfate 90 mcg/actuation HFA aerosol inhaler 2 puff inhalation Q6H PRN (Reason: Shortness Of Breath Or Wheezing) Qty: 18 RF: 3 ipratropium-albuterol 0.5 mg-3 mg(2.5 mg base)/3 mL solution for nebulization 3 ml inhalation Q8H PRN (Reason: shortness of breath or wheezing) Qty: 180 RF: 2 sildenafil (pulm.hypertension) 10 mg/mL suspension for reconstitution 5 mg PO TID Qty: 112 RF: 3 aspirin 81 mg Tablet,Delayed Release (Dr/Ec) 81 mg PO QAM RF: 0 atorvastatin 40 mg Tablet 40 mg PO QAM RF: 0 Referrals Referrals: [facility] Renuka Alcala [Primary Care Provider] -
[2021-10-24 10:45] LABS: INR 1.1 (0.9-1.1); Partial Thromboplastin Ratio 0.9; Partial Thromboplastin Time 25.2 Seconds (21.0-31.0)
--- NOTE | 2021-10-24 10:50 | XRay Report ---
XR chest 1V portable HISTORY: 71 years-old Male SOB acute shortness of breath COMPARISON: Chest radiograph and CTA chest 06/12/2021, chest CT 08/20/2021. TECHNIQUE: Portable AP view of the chest FINDINGS: Cardiac silhouette is enlarged, unchanged. Emphysema with bibasilar predominant interstitial coarseni ng, mildly progressed from prior. 2.3 cm left upper lobe with ill-defined 10 mm right upper lobe nodu les. No pneumothorax or large pleural effusion. Degenerative changes of the shoulders and spine. IMPRESSION: 1. Emphysema with mildly progressed bibasilar interstitial coarsening. Correlate clinically to exclud e an infectious or inflammatory pneumonitis. 2. Irregular biapical pulmonary nodules are better characterized on the comparison chest CT. ACT 112: Negative or not required by law. The above report was generated using voice recognition software. It may contain grammatical, syntax o r spelling errors. Electronically signed by: Mikey Cid M.D. 10/24/2021 10:48 AM
[2021-10-24 10:54] LABS: Albumin Globulin Ratio 1.5 (0.9-2); Albumin Level 3.8 gm/dl (3.4-5.0); BUN Creatinine Ratio 21.2 (10-20); Bilirubin,Total 1.3 mg/dl (0.2-1.0); Calcium 9.7 mg/dl (8.5-10.1); Creatinine Clr Calc Pharmacy 70.8 ml/min; Est GFR (African American) 87.2 ml/min; Est GFR (Non-African American) 75.2 ml/min; Globulin 2.6 gm/dl (2.5-4.0); Magnesium 1.9 mg/dl (1.7-2.4); Total Protein 6.4 gm/dl (6.0-8.3)
[2021-10-24 11:07] LABS: Potassium 3.8 mmol/L (3.5-5.1)
[2021-10-24] MEDS ORDERED: OPTIRAY 320 125ml IV ONE (11:22)
[2021-10-24 11:45] LABS: Influenza A virus by PCR Negative (Neg); Influenza B virus by PCR Negative (Neg); RSV by PCR Negative (Neg); SARS CoV2 RNA(COVID-19) InHosp NEGATIVE (Negative)
[2021-10-24] MEDS ORDERED: FUROSEMIDE 40 MG/4 ML VIAL IV ONE (11:49)
[2021-10-24] MEDS ORDERED: NITROGLYCERIN 2% OINTMENT 30GM TUBE EXT STA (11:49)
[2021-10-24] MEDS ORDERED: methylPREDNISolone 125 MG/2 ML VIAL IV STA (11:51)
--- NOTE | 2021-10-24 11:57 | CT Scan Report ---
CT angio chest PE protocol CLINICAL HISTORY: Severe shortness of breath. Evaluate for pulmonary embolus. History of lung cancer COMPARISON STUDY: No previous studies for comparison. CT DOSE: 394.91 mGy.cm TECHNIQUE: CT Angio of the chest was performed.followed by image post processing with coronal, and s agittal MIP reformats. Contrast Volume: Optiray 320, 121 ml FINDINGS: Breathing motion artifact is present. Vasculature: There is homogeneous perfusion of the pulmonary vasculature bilaterally. No intraluminal filling defects or evidence for pulmonary embolus is seen. Airway: The airway is clear. No endobronchial lesion is identified. Lungs: Compared to previous examination, there has been slight interval decrease in previously identi fied spiculated mass within the left upper lobe now measuring approximately 1.9 x 1.2 cm compared to 2.2 x 1.5 cm on the previous study. No additional nodules are identified. Centrilobular emphysematous changes are again seen bilaterally. Dependent edema is seen in the lung b ases posteriorly. Pleura: There is minimal pleural thickening at both lung bases posteriorly with no significant effus ion present. There is no evidence for pneumothorax. Mediastinum: There is evidence for stable mediastinal adenopathy. The heart size is within normal [place] its. The thoracic aorta is within normal limits. There is no evidence for pericardial effusion. Upper abdomen:The adrenal glands are normal bilaterally. Osseous structures: There is no acute osseous pathology. Impression: 1. No CTA evidence for pulmonary embolus. 2. Slight interval decrease in size of spiculated left upper lobe pulmonary nodule. 3. Centrilobular emphysematous changes with otherwise no acute chest disease. 4. Pleural thickening at the lung bases posteriorly with no gross effusion. ACT 112: Negative or not required by law. Electronically signed by: Tony Mejia M.D. 10/24/2021 11:53 AM
--- NOTE | 2021-10-24 12:31 | History & Physical Report ---
Date of Service October 24, 2021 Assessment & Plan (1) Acute on chronic respiratory failure with hypoxia: Plan: -On 7-9 L chronically at home, requiring 15L on oxymask now with sat in low 90s. -Received SoluMedrol and DuoNebs in ED, as well as 40mg IV Lasix. -Solu-Medrol 60 mg IV Q12h -DuoNebs scheduled Q6h -Azithromycin x5 day course for presumed COPD exacerbation. -Mucinex BID prn, patient currently not with cough productive of sputum. -Continue home inhalers. -SpO2 goal 88-92%. (2) Elevated troponin: Plan: -High sensitivity troponin 51.8, repeat troponin now. -Without chest pain/tightness, palpitations and no new EKG changes, this is likely a demand mismatch fom hypoxemia. -EKG with any new chest pain. (3) Chronic obstructive pulmonary disease: Plan: -As above with acute exacerbation of COPD. -Treatment as above. -Continue home maintenance inhaler. (4) Adenocarcinoma of lung: Plan: -Diagnosed in June 2021, not a surgical candidate, completed radiation treatment last month. -PET positive left upper lobe 1.6 cm x 1 cm-->Increased in size to 2.2cm 08/2021, slightly decreased in size since completing radiation. (5) Severe pulmonary hypertension: Plan: -Follows with pulmonology. -2D echo 01/22/2021:EF 70%,grade 1 diastolic dysfunction, severe pulmonary hypertension, RVSP 84, moderate right ventricular hypertrophy, moderately reduced RV function -Right heart cath not feasible due to current condition and O2 requirements. -Dr. Wang prescribed sildenafil 5mg TID on 09/10, however insurance denied this, patient has not been taking. (6) Essential tremor: Plan: -Right hand, not new. -No medications for this currently. (7) GERD (gastroesophageal reflux disease): Plan: -Chronic, stable. -Continue Pepcid 20 mg daily. (8) Hyperlipidemia: Plan: -Chronic, stable. -Continue atorvastatin. (9) BPH (benign prostatic hyperplasia): Plan: -No current medications for this. (10) Carotid stenosis: Plan: -Near complete occlusion of LICA. -Asymptomatic today, continue ASA, Plavix. (11) Aortic aneurysm: Plan: -3.9 x 3.8 cm infrarenal AAA -Follow-up as an outpatient. (12) Bilateral lower extremity edema: Plan: -Mild-moderate, has been present for several week, no on a diuretic at home. -Received 40 IV Lasix today in ED. Plan: -Admit to PCU. -SCDs, Lovenox for DVT ppx. -DNR/DNI. History of Present Illness Chief Complaint: worsening of shortness of breath x2 days Primary Care Provider: [facility] Mr. Manzanares is a 71-year-old male with a history of COPD with chronic bronchitis mixed obstructive and restrictive lung disease, adenocarcinoma of the L upper lobe, severe pulmonary hypertension, chronic respiratory failure with hypoxia on 7-9 L nasal cannula at home, ex-smoker, GERD, dyslipidemia, and BPH who presents to the ER with worsening shortness of breath over the past two days. He states he gets blood clots in his nose from wearing oxygen that cause him to become congested and struggle to breathe both at rest and is exacerbated moreso with activity. Shortnes of breatg has been gradually worsening over the past to days in the setting of b/l LE edema which he states has been his baseline for the past several weeks, as well as chills today in ED. Denies fevers at home, myalgias, weakness, fatigue, chest pain/tightness, palpitations, cough, wheezing, leg pain/redness, unilateral swelling, nausea, vomiting, abdominal pain, change to bowel or urination. No sick contacts at home, no recent travel, he is vaccinated against both COVID and influenza. In ED, SpO2 initially in 70-low 80s on 7L O2, now SpO2 in low 90s on oxymask at 15L. Hypertensive with SBP in 150s, otherwise VS wnl, stable. Labs significant for 51.8, 2-hour later reading is 49.2. BNP 71, Covid, influenza, RSV negative. CXR showed emphysema with mildly progressed bibasilar interstitial coarsening. Correlate clinically to exclude an infectious or inflammatory pneumonitis. Chest CTA negative for PE, did show slight interval decrease in left lobe nodule. Allergies Allergy/AdvReac Type Severity Reaction Status Date / Time No Known Allergies Allergy Verified 09/17/21 14:03 Home Medications Medication Instructions Recorded Confirmed Type aspirin 81 mg tablet,delayed 81 mg PO QAM 05/26/18 10/24/21 History release clopidogrel 75 mg tablet 75 mg PO QAM 11/30/20 10/24/21 History famotidine 20 mg tablet 20 mg PO QAM 11/30/20 10/24/21 History tiotropium 2.5 mcg-olodaterol 2.5 2 puff INHALATION DAILY #3 inhaler 01/09/21 09/10/21 Rx mcg/actuation mist for inhalation (Stiolto Respimat) atorvastatin 40 mg tablet 40 mg PO QAM 02/28/21 10/24/21 History albuterol sulfate 90 mcg/actuation 2 puff INHALATION Q6H PRN #18 g 09/10/21 10/24/21 Rx aerosol inhaler budesonide 0.25 mg/2 mL suspension 0.25 mg INHALATION BID PRN #60 ml 09/10/21 10/24/21 Rx for nebulization ipratropium 0.5 mg-albuterol 3 mg 3 ml INHALATION Q8H PRN #180 ml 09/10/21 09/17/21 Rx (2.5 mg base)/3 mL nebulization soln sildenafil (pulm.hypertension) 10 5 mg PO TID #112 ml 09/10/21 10/24/21 Rx mg/mL oral suspension nebulizers #1 ea 10/11/21 Rx Past Med/Surg History Medical History Acute respiratory failure with hypoxia Aortic aneurysm Stable No 3.7 cm infrarenal AAA per 04/10/20 CT Abd/Pelvix BPH (benign prostatic hyperplasia) BPH NOS w ur obs/LUTS Carotid stenosis Critical (near occlusion) stenosis of the proximal LICA per 03/13/21 carotid doppler > reason for plavix per pt Chronic bronchitis Chronic obstructive pulmonary disease Chronic respiratory failure with hypoxia COPD with emphysema Essential tremor Right hand Ex-smoker Exertional shortness of breath GERD (gastroesophageal reflux disease) Hiatal hernia History of colon polyps History of migraine Hx of skin cancer, basal cell Hyperlipidemia Hypersomnia Jaw clicking No locking Lung nodule Reason for upcoming bronchoscopy Mixed restrictive and obstructive lung disease On home oxygen therapy 4L O2 continuous Palliative care encounter Pulmonary hypertension Severe pulmonary hypertension Per 01/2021 echo, RVSP 84mmhg Urinary incontinence Surgical History History of cataract surgery Right History of colonoscopy History of esophagogastroduodenoscopy (EGD) History of tooth extraction Family History Mother Family history of diabetes mellitus Grandmother No problems noted. Grandmother (Maternal) Family hx of colon cancer Other No family history of adverse response to anesthesia Social History Smoking Status: Former smoker Tobacco Type: Cigarettes packs per day: 1; Years Smoked: 2,007; Number of Years Since Quit: 14; Second Hand Exposure: Yes; Do You Dip or Chew Tobacco: No; Tobacco Cessation Education Requested by Patient: No Hx Alcohol Use: Yes Alcohol type: beer Hx Substance Use: No Preferred Language: Yi Communication Ability: Effective Crib Pad Maker Required: No Beliefs That Will Affect Care: None marital status: Current Living Situation: Spouse Current Living Situation Comment: Custodial community current occupational status: retired Other Information That Helps Us Care for You: No Feels Safe at Home: Yes Safety Concerns: Feels Safe At This Time caffeine: Yes Physical Activity Frequency: 3-4 Times per Week Physical Activity Frequency Comment: Treadmill walks Assistive Devices: Denture - Upper, Glasses, Oxygen - Continuous and Wheelchair Review of Systems Review of Systems: Constitutional: Chills today in ED, no fever/chills at home, no weakness, fatigue, myalgias, anorexia, night sweats Eyes: No diplopia, no worsening or blurred vision ENT: normal hearing, no trouble swallowing Respiratory: worsening SOB with rest and activity, no cough, sputum, wheezing at home Cardiovascular: No chest pain, tightness or palpitations Abdomen: No pain, nausea, vomiting, diarrhea or constipation : Denies dysuria, hematuria, increased urgency/frequency, urinary retention Musculoskeletal: No joint pain, calf pain, swelling Neurologic: No weakness, numbness/tingling, or balance problems Psychiatric: No anxiety or depression Skin: No rash or itch Physical Exam Physical Exam: General: awake, alert, no apparent distress, speaking comfortably with oxymask on at 15 L Head: Normocephalic, atraumatic ENT: PERRL, EOMI, no pharyngeal exudate, mucous membranes moist Chest: some crackles heard in left upper lobe, otherwise no adventitious breath sounds, no wheezing, no stridor Cardiac: Regular rate and rhythm, no murmur, no JVD, normal peripheral pulses, good capillary refill Abdominal: NABS x 4 quadrants, soft, nontender to palpation, no rebound, guarding or tenderness Extremities: Some b/l lower extremity edema, otherwise normal inspection, erythema, calfs nontender to palpation Psych: Normal mood and affect Neuro: AAO x 3, strength intact bilaterally and rated 5/5, no motor deficits, speech is clear, no peripheral sensory deficits Skin: no rash or erythema Results & Data Results & Data ([facility]) Vital Signs (Past 12 Hours) Vital Signs Temp Pulse Resp BP Pulse Ox 10/24/21 11:40 82 22 87 L 10/24/21 11:30 85 28 H 152/86 H 85 L 10/24/21 11:26 90 28 H 76 L 10/24/21 11:00 87 26 H 156/92 H 91 10/24/21 10:50 81 21 91 10/24/21 10:40 79 26 H 89 L 10/24/21 10:30 90 33 H 148/84 H 80 L 10/24/21 10:20 79 27 H 92 10/24/21 10:12 80 32 H 92 10/24/21 10:10 84 37 H 90 10/24/21 10:00 77 24 130/76 92 10/24/21 09:50 80 24 91 10/24/21 09:40 76 19 93 10/24/21 09:30 75 29 H 135/83 93 10/24/21 09:27 80 27 H 138/78 92 10/24/21 09:23 78 31 H 91 10/24/21 09:15 37.1 C 82 38 H 135/83 80 L Laboratory Results Abnormal lab results 10/24/21 10/24/21 10/24/21 Range/Units 09:28 09:28 09:28 RBC 4.02 L (4.7-6.1) M/uL MCV 106.5 H (80-100) fL MCH 35.1 H (25-34) pg RDW Std Deviation 59.8 H (36.4-46.3) fL RDW Coeff of Megan 15.5 H (11.5-14.5) % [place] # (Auto) 0.69 H (0.11-0.59) K/uL BUN/Creatinine Ratio 21.2 H (10-20) Total Bilirubin 1.3 H (0.2-1.0) mg/dl AST 55 H (13-39) U/L Troponin I High Sens 51.8 H* (0-20) pg/ml B-Natriuretic Peptide (0-100) pg/ml 10/24/21 Range/Units 10:40 RBC (4.7-6.1) M/uL MCV (80-100) fL MCH (25-34) pg RDW Std Deviation (36.4-46.3) fL RDW Coeff of Megan (11.5-14.5) % [place] # (Auto) (0.11-0.59) K/uL BUN/Creatinine Ratio (10-20) Total Bilirubin (0.2-1.0) mg/dl AST (13-39) U/L Troponin I High Sens (0-20) pg/ml B-Natriuretic Peptide 701 H (0-100) pg/ml Diagnostic Findings Chest CTA 10/24/21 10:12 CT angio chest PE protocol CLINICAL HISTORY: Severe shortness of breath. Evaluate for pulmonary embolus. History of lung cancer COMPARISON STUDY: No previous studies for comparison. CT DOSE: 394.91 mGy.cm TECHNIQUE: CT Angio of the chest was performed.followed by image post processing with coronal, and sagittal MIP reformats. Contrast Volume: Optiray 320, 121 ml FINDINGS: Breathing motion artifact is present. Vasculature: There is homogeneous perfusion of the pulmonary vasculature bilaterally. No intraluminal filling defects or evidence for pulmonary embolus is seen. Airway: The airway is clear. No endobronchial lesion is identified. Lungs: Compared to previous examination, there has been slight interval decrease in previously identified spiculated mass within the left upper lobe now measuring approximately 1.9 x 1.2 cm compared to 2.2 x 1.5 cm on the previous study. No additional nodules are identified. Centrilobular emphysematous changes are again seen bilaterally. Dependent edema is seen in the lung bases posteriorly. Pleura: There is minimal pleural thickening at both lung bases posteriorly with no significant effusion present. There is no evidence for pneumothorax. Mediastinum: There is evidence for stable mediastinal adenopathy. The heart size is within normal limits. The thoracic aorta is within normal limits. There is no evidence for pericardial effusion. Upper abdomen:The adrenal glands are normal bilaterally. Osseous structures: There is no acute osseous pathology. Impression: 1. No CTA evidence for pulmonary embolus. 2. Slight interval decrease in size of spiculated left upper lobe pulmonary nodule. 3. Centrilobular emphysematous changes with otherwise no acute chest disease. 4. Pleural thickening at the lung bases posteriorly with no gross effusion. ACT 112: Negative or not required by law. Electronically signed by: Tony eMjia M.D. 10/24/2021 11:53 AM Chest X-Ray 10/24/21 10:12 XR chest 1V portable HISTORY: 71 years-old Male SOB acute shortness of breath COMPARISON: Chest radiograph and CTA chest 06/12/2021, chest CT 08/20/2021. TECHNIQUE: Portable AP view of the chest FINDINGS: Cardiac silhouette is enlarged, unchanged. Emphysema with bibasilar predominant interstitial coarsening, mildly progressed from prior. 2.3 cm left upper lobe with ill-defined 10 mm right upper lobe nodules. No pneumothorax or large pleural effusion. Degenerative changes of the shoulders and spine. IMPRESSION: 1. Emphysema with mildly progressed bibasilar interstitial coarsening. Correlate clinically to exclude an infectious or inflammatory pneumonitis. 2. Irregular biapical pulmonary nodules are better characterized on the comparison chest CT. ACT 112: Negative or not required by law. The above report was generated using voice recognition software. It may contain grammatical, syntax or spelling errors. Electronically signed by: Mikey Cid M.D. 10/24/2021 10:48 AM ECG Additional Comments: Normal sinus rhythm Possible Left atrial enlargement Incomplete right bundle branch block T wave abnormality, consider anterior ischemia Abnormal ECG When compared with ECG of 12-JUN-2021 12:29, No significant change was found. No ST segment changes, no change to T wave inversions in anterior leads. Code Status & VTE Plan Code Status DNR/DNI. Supervising Physician Co-Signing Physician Notes Patient seen and examined, chart reviewed, case discussed with Geovanna Fuentes and I agree with the assessment and plan as above except as otherwise noted General: A&Ox3. NAD. Cooperative. HEENT: Atraumatic, normocephalic. Vision/hearing grossly intact. Pulm: Diminished, -wheezes, -rales, -rhonchi. Symmetrical chest rise. No increase in work of breathing. No respiratory distress. Cardiac: RRR, -mrg. Radial pulses intact and symmetrical. Abdominal: Nontender, nondistended, soft. BS present. Labs and images reviewed 71-year-old male with a history of chronic respiratory failure with hypoxia, adenocarcinoma of the lung who recently completed 5 fractions of SBRT and is not a surgical candidate due to severe DLCO reduction, pulmonary hypertension, and CAD with history of demand ischemia presents with acute on chronic respiratory failure with hypoxia. Home oxygen requirements increased from 7 to 9 L chronically at home to 15 L oxygen mask in ER now down to 7 L. On admission was placed on empiric treatment for COPD exacerbation including Solu-Medrol and azithromycin, patient clinically improving by time of bedside assessment. Does have trace pleural effusions, mild elevation of BNP to 701 is borderline normal w age-adjusted values. CTA without evidence of PE or notable edema, received Lasix in ER and will defer additional doses. High-sensitivity troponin was elevated without acute ST segment changes or chest pain, downtrending on recheck. PG Care Time/CCT Total # of Minutes Spent Total Time Spent with Patient: Total time spent is greater than 50% in coordination of care (as documented) at patient's floor/unit and/or counseling patient: Coding Level of Care Code 65205 Initial Inpt Care Lvl 3 Diagnoses Acute on chronic respiratory failure with hypoxia J96.21 Adenocarcinoma of lung C34.90 Severe pulmonary hypertension I27.20 Essential tremor G25.0 GERD (gastroesophageal reflux disease) K21.9 Hyperlipidemia E78.5 BPH (benign prostatic hyperplasia) N40.0 Carotid stenosis I65.29 Aortic aneurysm I71.9 Chronic obstructive pulmonary disease J44.9 Elevated troponin R77.8 Bilateral lower extremity edema R60.0
[2021-10-24] MEDS ORDERED: CLOPIDOGREL BISULFATE 75 MG TAB PO ONE (13:18)
[2021-10-24] MEDS ORDERED: FAMOTIDINE 20 MG TAB PO ONE (13:18)
[2021-10-24] MEDS ORDERED: ASPIRIN 81 MG ECTAB PO ONE (13:19)
[2021-10-24] MEDS ORDERED: ATORVASTATIN 40 MG TAB PO ONE (13:22)
[2021-10-24] MEDS ORDERED: SODIUM CHLORIDE 0.65% NA SOLN 45 ML (OCEAN) PRN (15:32)
[2021-10-24] MEDS ORDERED: guaiFENesin 600 MG TABCR PO PRN (15:33)
[2021-10-24] MEDS ORDERED: ACETAMINOPHEN 325 MG TAB PO PRN (15:33)
[2021-10-24] MEDS ORDERED: ONDANSETRON INJ 2 MG/ML 2 ML VIAL IV PRN (15:33)
[2021-10-24] MEDS ORDERED: ALBUTEROL HFA 8 GM INHALER INH PRN (15:33)
[2021-10-24] MEDS ORDERED: POLYETHYLENE (MIRALAX) 17 GM PACK PO PRN (15:33)
[2021-10-24] MEDS ORDERED: AZITHROMYCIN 250 MG TAB PO ONE (15:33)
[2021-10-24] MEDS: ALBUT/IPRATROP 3MG/0.5MG NEB 3 ML VIAL INH SCH ×2 (15:49→19:26)
[2021-10-24] MEDS: ENOXAPARIN INJ 40 MG/0.4 ML SYR SQ SCH (16:59)
[2021-10-24] MEDS: OXYMETAZOLINE 0.05% 30 ML BTL PRN (16:59)
[2021-10-24] MEDS: BUDESONIDE 0.25 MG/2 ML VIAL (PULMICORT) INH SCH (19:24)
[2021-10-24] MEDS ORDERED: methylPREDNISolone 125 MG/2 ML VIAL IV SCH (20:00)
[2021-10-24] MEDS: methylPREDNISolone 60 MG in SYRINGE 0 ML IV SCH (20:37)
[2021-10-25] MEDS: ALBUT/IPRATROP 3MG/0.5MG NEB 3 ML VIAL INH SCH ×4 (00:54→19:16)
--- NOTE | 2021-10-25 05:06 | Communication Note ---
Date of Service: October 25, 2021 Per nursing, patient very sob when w/ any activity. Inserting jiménez.
--- NOTE | 2021-10-25 06:23 | Electrocardiogram Report ---
Test Reason : Blood Pressure : / mmHG Vent. Rate : 076 BPM Atrial Rate : 076 BPM P-R Int : 176 ms QRS Dur : 092 ms QT Int : 396 ms P-R-T Axes : 069 007 047 degrees QTc Int : 445 ms Normal sinus rhythm Possible Left atrial enlargement Incomplete right bundle branch block T wave abnormality, consider anterior ischemia Abnormal ECG When compared with ECG of 12-JUN-2021 12:29, No significant change was found Confirmed by Mauro Arciniega ([id number]) on 10/25/2021 6:23:40 AM Referred By: [facility] Confirmed By:Mauro Arciniega
[2021-10-25 06:37] LABS: Hematocrit (blood only) 39.1 % (42-52); Hemoglobin 13.2 g/dL (14.0-18.0); Lymphocytes # (auto) 0.49 K/uL (1.2-3.4); Lymphocytes % (auto) 9.5 %; Mean Corpuscular Hemoglobin 35.1 pg (25-34); Mean Corpuscular Hgb Conc 33.8 g/dL (32-36); Mean Platelet Volume 10.1 fL (7.4-10.4); Monocytes # (auto) 0.08 K/uL (0.11-0.59); Monocytes % (auto) 1.6 %; Neutrophils # (auto) 4.57 K/uL (1.4-6.5); Neutrophils % (auto) 88.9 %; Platelet Count 124 K/uL (130-400); RDW Coefficient of Variation 14.9 % (11.5-14.5); RDW Standard Deviation 56.9 fL (36.4-46.3); Red Blood Count 3.76 M/uL (4.7-6.1); White Blood Count 5.14 K/uL (4.8-10.8)
[2021-10-25 07:00] LABS: Calcium 8.6 mg/dl (8.5-10.1); Est GFR (African American) 90.5 ml/min; Est GFR (Non-African American) 78.1 ml/min; Potassium 4.2 mmol/L (3.5-5.1)
[2021-10-25] MEDS: BUDESONIDE 0.25 MG/2 ML VIAL (PULMICORT) INH SCH ×2 (07:03→19:16)
--- NOTE | 2021-10-25 07:48 | Pulmonary Consultation ---
Date of Consultation October 25, 2021 Assessment & Plan (1) Acute on chronic respiratory failure with hypoxia: (2) Adenocarcinoma of lung: (3) Severe pulmonary hypertension: --Acute on chronic chronic hypoxic respiratory failure Is on baseline 8 L nasal cannula on exertion Multifactorial Patient does have COPD he also has severe pulmonary hypertension Continue with inhaled bronchodilators I doubt patient is in COPD exacerbation but okay to continue with steroids. We will gradually titrate it down in the next couple of days I want to start the patient on sildenafil 5 mg 3 times a day to see if makes any difference in his oxygen requirement and shortness of breath --Pulmonary hypertension Severe Likely combination of type II and type III Given the significant pulmonary hypertension and him requiring more liters of oxygen. 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 Gold class D At home Budesonide 250 MCG nebulized twice a day , Stiolto 2 puffs on a daily basis till the samples last and then nebulizers on a regular basis PFTs 02/21/2021:Moderate COPD with emphysema, insignificant bronchodilator response,mixed obstructive restrictive lung disease, severe decrease in DLCO which does not correct for VA FVC 3.59 L 78%, FEV1 2.39 L 68%, FEV1/FVC 66%, RV 94%,TLC is 76%, RV/TLC- 19%, DLCO 31%, DLCO/VA 57% --Adenocarcinoma of the left upper lobe Patient is not a surgical candidate given the significant decrease in DLCO Patient has completed radiation therapy The nodule seems to have decreased in size compared to before --Ex-smoker Greater than 10-thgz-bewt smoking history Quit in 2006 Encouraged to continue with abstinence from smoking Plan: Decreased Solu-Medrol to 40 mg every 12 Start the patient on Lasix 20 mg on a daily basis 75 mg 3 times daily with holding parameter, cannot use it with any nitrate Complete 5 days of azithromycin I did order ABG to see the patient is hypercapnic. He was not hypercapnic so he will not be a candidate for AVAPS machine. He will benefit from a sleep study as an outpatient. Please note the above document was generated using voice recognition software. It may contain grammatical, syntax or spelling errors.Any formal questions or concerns about the content, text or information contained within the body of this dictation should be directly addressed to the provider for clarification. History of Present Illness Attending Physician: Ruel Bello MD History of Present Illness 71-year-old male coming to pulmonary for COPD and emphysema and chronic hypoxic respiratory failure Past medical history: GERD, dyslipidemia, BPH,adenocarcinoma of the left upper lobe diagnosed June 2021 Last seen by me on 09/10/2021 Patient is a known patient of mine. He has been following up with me in the office for his COPD At the time of examination patient states that he was having issues with his breathing since last couple of days. He is usually on 6-8 L of oxygen on exertion but they had to increase it to 10 L. Saturation was going into the 70s and thus why came to the ED. Denies any chest pain. Has been compliant with inhalers at home. He has completed radiation therapy to the pulmonary nodule on the left upper lobe At the time of examination patient was saturating 94-95% on 80% high flow, 30 L I was able to go down to 70% Occasional cough. Brings up clear phlegm. Denies any hemoptysis Denies any fever or chills. Denies any night sweats, no unintentional weight loss Social history: [id number] smoking history, quit in 2006, social alcohol, denies any illicit drug use. 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 No exposure to any chemicals or fumes Pets: None Allergies: Denies Asthma: No personal or family history of asthma Lung cancer: Mom had metastasis to the lung but no lung primary cancer Allergies Allergy/AdvReac Type Severity Reaction Status Date / Time No Known Allergies Allergy Verified 09/17/21 14:03 Home Medications Medication Instructions Recorded Confirmed Type aspirin 81 mg tablet,delayed 81 mg PO QAM 05/26/18 10/24/21 History release clopidogrel 75 mg tablet 75 mg PO QAM 11/30/20 10/24/21 History famotidine 20 mg tablet 20 mg PO QAM 11/30/20 10/24/21 History tiotropium 2.5 mcg-olodaterol 2.5 2 puff INHALATION DAILY #3 inhaler 01/09/21 09/10/21 Rx mcg/actuation mist for inhalation (Stiolto Respimat) atorvastatin 40 mg tablet 40 mg PO QAM 02/28/21 10/24/21 History albuterol sulfate 90 mcg/actuation 2 puff INHALATION Q6H PRN #18 g 09/10/21 10/24/21 Rx aerosol inhaler budesonide 0.25 mg/2 mL suspension 0.25 mg INHALATION BID PRN #60 ml 09/10/21 10/24/21 Rx for nebulization ipratropium 0.5 mg-albuterol 3 mg 3 ml INHALATION Q8H PRN #180 ml 09/10/21 09/17/21 Rx (2.5 mg base)/3 mL nebulization soln sildenafil (pulm.hypertension) 10 5 mg PO TID #112 ml 09/10/21 10/24/21 Rx mg/mL oral suspension nebulizers #1 ea 10/11/21 Rx Patient History Medical History Acute respiratory failure with hypoxia Aortic aneurysm Stable No 3.7 cm infrarenal AAA per 04/10/20 CT Abd/Pelvix BPH (benign prostatic hyperplasia) BPH NOS w ur obs/LUTS Carotid stenosis Critical (near occlusion) stenosis of the proximal LICA per 03/13/21 carotid doppler > reason for plavix per pt Chronic bronchitis Chronic obstructive pulmonary disease Chronic respiratory failure with hypoxia COPD with emphysema Essential tremor Right hand Ex-smoker Exertional shortness of breath GERD (gastroesophageal reflux disease) Hiatal hernia History of colon polyps History of migraine Hx of skin cancer, basal cell Hyperlipidemia Hypersomnia Jaw clicking No locking Lung nodule Reason for upcoming bronchoscopy Mixed restrictive and obstructive lung disease On home oxygen therapy 4L O2 continuous Palliative care encounter Pulmonary hypertension Severe pulmonary hypertension Per 01/2021 echo, RVSP 84mmhg Urinary incontinence Surgical History History of cataract surgery Right History of colonoscopy History of esophagogastroduodenoscopy (EGD) History of tooth extraction Family History Mother Family history of diabetes mellitus Grandmother No problems noted. Grandmother (Maternal) Family hx of colon cancer Other No family history of adverse response to anesthesia Social History Smoking Status: Former smoker Tobacco Type: Cigarettes packs per day: 1; Years Smoked: 2,007; Number of Years Since Quit: 14; Second Hand Exposure: Yes; Do You Dip or Chew Tobacco: No; Tobacco Cessation Education Requested by Patient: No Hx Alcohol Use: Yes Alcohol type: beer Hx Substance Use: No Preferred Language: Chinese Communication Ability: Effective Child Care Lead Teacher Required: No Beliefs That Will Affect Care: None marital status: Current Living Situation: Spouse Current Living Situation Comment: Alf community current occupational status: retired Other Information That Helps Us Care for You: No Feels Safe at Home: Yes Safety Concerns: Feels Safe At This Time caffeine: Yes Physical Activity Frequency: 3-4 Times per Week Physical Activity Frequency Comment: Treadmill walks Assistive Devices: Denture - Upper, Glasses, Oxygen - Continuous and Wheelchair Review of Systems Review of Systems: All systems reviewed & are unremarkable except as noted in HPI & below Physical Exam Physical Exam: Constitutional: No acute distress HEENT: EOMI, PERRLA Respiratory system: Decreased air entry bilaterally, no wheeze, no rhonchi, positive mild crackles bilaterally CVS: S1-S2 positive, no murmurs or gallops, accentuated P2, distant heart sounds Abdomen: Soft, nontender, nondistended, positive bowel sounds x4 Extremities: +2 pulses bilaterally radialis/ dorsalis pedis, no cyanosis, +2 pitting edema bilateral lower extremity Neuro: Awake alert oriented x3 Psych: Normal mood and affect G/U: No Adrian Skin: no rashes, warm and dry Lymphatic: no cervical or axillary lymphadenopathy Results & Data Results & Data ([facility]) Vital Signs (Past 12 Hours) Vital Signs Temp Pulse Pulse Resp BP Pulse Ox 10/25/21 07:04 75 20 95 10/25/21 03:14 80 18 95 10/25/21 03:00 36.7 C 82 20 119/69 95 10/25/21 00:55 85 17 92 10/25/21 00:54 85 17 92 10/24/21 23:42 85 10/24/21 23:00 36.6 C 82 22 115/69 93 10/24/21 22:25 88 17 91 Laboratory Results 10/25/21 05:58 10/25/21 05:58 PG Care Time/CCT Total # of Minutes Spent Total Time Spent with Patient: Total time spent is greater than 50% in coordination of care (as documented) at patient's floor/unit and/or counseling patient: Coding Level of Care Code 35317 Initial Inpt Care Lvl 3 Diagnoses Acute on chronic respiratory failure with hypoxia J96.21 Adenocarcinoma of lung C34.90 Severe pulmonary hypertension I27.20
[2021-10-25] MEDS: methylPREDNISolone 60 MG in SYRINGE 0 ML IV SCH (08:32)
[2021-10-25] MEDS: FUROSEMIDE 20 MG TAB PO SCH (08:32)
[2021-10-25] MEDS: ATORVASTATIN 40 MG TAB PO SCH (08:33)
[2021-10-25] MEDS: FAMOTIDINE 20 MG TAB PO SCH (08:33)
[2021-10-25] MEDS: CLOPIDOGREL BISULFATE 75 MG TAB PO SCH (08:33)
[2021-10-25] MEDS: ASPIRIN 81 MG ECTAB PO SCH (08:33)
[2021-10-25] MEDS: UMECLIDINIUM/VILANTEROL 62.5/25MCG 7 PUFFS/INHALER INH SCH (08:34)
[2021-10-25] MEDS: SILDENAFIL CITRATE 20 MG TABLET PO SCH ×3 (10:31→19:46)
[2021-10-25 10:36] LABS: Base Excess ABG -0.3 mEq/L (-9-1.8); HCO3 ABG 22 mmol/L (19-24); PCO2 ABG 31 mmHg (35-46); PO2 ABG 66 mmHg (80-95); pH ABG 7.48 (7.35-7.45)
[2021-10-25 10:37] LABS: Allen Test Pos (Pos)
[2021-10-25] MEDS: AZITHROMYCIN 250 MG TAB PO SCH (12:09)
--- NOTE | 2021-10-25 15:11 | Hospitalist Progress Note ---
Date of Service October 25, 2021 Assessment & Plan (1) Acute on chronic respiratory failure with hypoxia: Plan: Pulmonary hypertension versus COPD exacerbation. Minimal wheezing -Received SoluMedrol and DuoNebs in ED, as well as 40mg IV Lasix. Currently at 25 L, 75% high flow. Improved from -Solu-Medrol 60 mg IV Q12h --> 40 q12h continue to down titrate Pulm consulted. Started on sildenafil for pulmonary hypertension. Was previously prescribed this but did not take due to insurance denying being unable to fill. Continue Lasix 20. Sildenafil 5 mg 3 times daily hold for hypotension, do not use nitrates. Appreciate recommendations. -DuoNebs scheduled Q6h - GOLD D. -Azithromycin x5 day course for presumed COPD exacerbation. -Mucinex BID prn, patient currently not with cough productive of sputum. -Continue home inhalers. -SpO2 goal 88-92%. Will benefit from outpatient sleep study (2) Elevated troponin: Plan: -High sensitivity troponin 51.8, down trended. Consistent with demand ischemia -Without chest pain/tightness, palpitations and no new EKG changes -EKG without acute ST segment changes, repeat EKG as needed (3) Chronic obstructive pulmonary disease: Plan: -As above with acute exacerbation of COPD. -Treatment as above. -Continue home maintenance inhaler. (4) Adenocarcinoma of lung: Plan: -Diagnosed in June 2021, not a surgical candidate, completed radiation treatment last month. -PET positive left upper lobe 1.6 cm x 1 cm-->Increased in size to 2.2cm 08/2021, slightly decreased in size since completing radiation. Not a surgical candidate due to severe reduction in DLCO (5) Severe pulmonary hypertension: Plan: -Follows with pulmonology. -2D echo 01/22/2021:EF 70%,grade 1 diastolic dysfunction, severe pulmonary hypertension, RVSP 84, moderate right ventricular hypertrophy, moderately reduced RV function -Right heart cath not feasible due to current condition and O2 requirements. -Dr. Wang prescribed sildenafil 5mg TID on 09/10, however insurance denied this, patient has not been taking. This was resumed on inpatient as above 10/25 (6) Essential tremor: Plan: -Right hand, not new. -No medications for this currently. (7) GERD (gastroesophageal reflux disease): Plan: -Chronic, stable. -Continue Pepcid 20 mg daily. (8) Hyperlipidemia: Plan: -Chronic, stable. -Continue atorvastatin. (9) BPH (benign prostatic hyperplasia): Plan: -No current medications for this. (10) Carotid stenosis: Plan: -Near complete occlusion of LICA. -Asymptomatic today, continue ASA, Plavix. (11) Aortic aneurysm: Plan: -3.9 x 3.8 cm infrarenal AAA -Follow-up as an outpatient. (12) Bilateral lower extremity edema: Plan: -Mild-moderate, has been present for several week, no on a diuretic at home. -Received 40 IV Lasix today in ED.continued on Lasix as above Plan: -Admit to PCU. -SCDs, Lovenox for DVT ppx. -DNR/DNI. Admission and Anticipated Discharge Date Admission Date: October 24, 2021 Subjective Patient is seen at the bedside. He reports his breathing is still worse than normal, maybe a little bit better today than yesterday. He reports he is frustrated and would like a green socks so that he can get up and walk. On discussed with nursing staff with sitting up to bedside patient did rapidly desaturate to 70%, discussed with patient that while he is improving it is not safe to be independently ambulatory. Recommend that he call nursing to void, may sit up to void into bedside bottle with assistance if SPO2 tolerating. Patient otherwise denies chest pain, lightheadedness, dizziness. Easily short of breath with exertion but reports he has no symptoms at rest. Denies wheezing. No fevers or chills overnight. No productive sputum. Review of Systems Review of Systems: All systems reviewed & are unremarkable except as noted in Subjective Physical Exam Physical Exam: General: A&Ox3. NAD. Cooperative. HEENT: Atraumatic, normocephalic. Pulm: Globally diminished. No wheezes or rales, bibasilar trace crackles metrical chest rise. Cardiac: RRR, -mrg. Radial pulses intact and symmetrical. Abdominal: Nontender, nondistended, soft. BS present. Extremities: Bilateral pitting edema. Roadway Designer strength, ankle dorsiflexion/plantarflexion grossly intact and symmetrical. Sensation to soft touch intact bilaterally. Results & Data Results & Data ([facility]) Vital Signs (Past 12 Hours) Vital Signs Temp Pulse Pulse Resp BP Pulse Ox 04/14/22 14:55 91 H 20 90 10/25/21 12:43 100 H 30 H 79 L 10/25/21 11:56 36.4 C L 90 26 H 109/63 88 L 10/25/21 10:44 80 20 91 10/25/21 07:59 90 20 85 L 10/25/21 07:58 36.4 C L 83 22 115/61 88 L 10/25/21 07:04 75 20 95 10/25/21 03:14 80 18 95 PG Care Time/CCT Total # of Minutes Spent Total Time Spent with Patient: Total time spent is greater than 50% in coordination of care (as documented) at patient's floor/unit and/or counseling patient: Coding Level of Care Code 10074 Subseq Hosp Care Lvl 3 Diagnoses Acute on chronic respiratory failure with hypoxia J96.21 Elevated troponin R77.8 Chronic obstructive pulmonary disease J44.9 Adenocarcinoma of lung C34.90 Severe pulmonary hypertension I27.20 Essential tremor G25.0 GERD (gastroesophageal reflux disease) K21.9 Hyperlipidemia E78.5 BPH (benign prostatic hyperplasia) N40.0 Carotid stenosis I65.29 Aortic aneurysm I71.9 Bilateral lower extremity edema R60.0
[2021-10-25] MEDS: ENOXAPARIN INJ 40 MG/0.4 ML SYR SQ SCH (17:27)
[2021-10-25] MEDS ORDERED: methylPREDNISolone 40 MG in SYRINGE 0 ML IV SCH (21:00)
[2021-10-26] MEDS: ALBUT/IPRATROP 3MG/0.5MG NEB 3 ML VIAL INH SCH ×4 (00:27→19:05)
[2021-10-26 06:30] LABS: Hematocrit (blood only) 38.5 % (42-52); Hemoglobin 12.9 g/dL (14.0-18.0); Immature Granulocytes # (auto) 0.02 K/uL (0.00-0.02); Immature Granulocytes % (auto) 0.2 %; Lymphocytes # (auto) 0.49 K/uL (1.2-3.4); Lymphocytes % (auto) 4.9 %; Mean Corpuscular Hemoglobin 35.1 pg (25-34); Mean Corpuscular Hgb Conc 33.5 g/dL (32-36); Mean Corpuscular Volume 104.9 fL (80-100); Mean Platelet Volume 10.2 fL (7.4-10.4); Monocytes # (auto) 0.39 K/uL (0.11-0.59); Monocytes % (auto) 3.9 %; Neutrophils # (auto) 9.18 K/uL (1.4-6.5); Platelet Count 119 K/uL (130-400); RDW Coefficient of Variation 15.2 % (11.5-14.5); Red Blood Count 3.67 M/uL (4.7-6.1); White Blood Count 10.08 K/uL (4.8-10.8)
[2021-10-26] MEDS: BUDESONIDE 0.25 MG/2 ML VIAL (PULMICORT) INH SCH ×2 (07:10→19:04)
[2021-10-26 07:13] LABS: Calcium 8.7 mg/dl (8.5-10.1); Creatinine Clr Calc Pharmacy 75.3 ml/min; Est GFR (African American) 94.1 ml/min; Est GFR (Non-African American) 81.2 ml/min; Potassium 4.3 mmol/L (3.5-5.1)
--- NOTE | 2021-10-26 08:32 | Pulmonology Progress Note ---
Date of Service October 26, 2021 Assessment & Plan (1) Acute on chronic respiratory failure with hypoxia: (2) Adenocarcinoma of lung: (3) Severe pulmonary hypertension: Plan: --Acute on chronic chronic hypoxic respiratory failure Is on baseline 8 L nasal cannula on exertion Multifactorial Patient does have COPD he also has severe pulmonary hypertension Continue with inhaled bronchodilators I doubt patient is in COPD exacerbation but okay to continue with steroids. We will gradually titrate it down in the next couple of days I want to start the patient on sildenafil 5 mg 3 times a day to see if makes any difference in his oxygen requirement and shortness of breath Patient does not seem to have hypercapnia on the ABG. He would not be a candidate for AVAPS. He will benefit from polysomnography as an outpatient. --Pulmonary hypertension Severe Likely combination of type II and type III Given the significant pulmonary hypertension and him requiring more liters of oxygen. 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 Gold class D At home Budesonide 250 MCG nebulized twice a day , Stiolto 2 puffs on a daily basis till the samples last and then nebulizers on a regular basis PFTs 02/21/2021:Moderate COPD with emphysema, insignificant bronchodilator response,mixed obstructive restrictive lung disease, severe decrease in DLCO which does not correct for VA FVC 3.59 L 78%, FEV1 2.39 L 68%, FEV1/FVC 66%, RV 94%,TLC is 76%, RV/TLC- 19%, DLCO 31%, DLCO/VA 57% --Adenocarcinoma of the left upper lobe Patient is not a surgical candidate given the significant decrease in DLCO Patient has completed radiation therapy The nodule seems to have decreased in size compared to before --Ex-smoker Greater than 55-[id number] smoking history Quit in 2006 Encouraged to continue with abstinence from smoking Plan: I/out: -976, urine output 1526 Decreased Solu-Medrol to 40 mg daily Continue with Lasix Continue with sildenafil, patient has had low blood pressure readings this could be from addition of sildenafil. If he has persistent low blood pressure then I will stop sildenafil. There are already holding parameters in place if systolic blood pressure is less than 100 not to give sildenafil Please note the above document was generated using voice recognition software. It may contain grammatical, syntax or spelling errors.Any formal questions or concerns about the content, text or information contained within the body of this dictation should be directly addressed to the provider for clarification. Admission and Anticipated Discharge Date Admission Date: October 24, 2021 Subjective Patient seen and examined at bedside. No acute distress He was on 25 L, 65%, saturating 80% in the beginning when I asked him to take deep breaths it went up to 87% Denies any significant change in his respiratory status No chest pain, no headache, no nausea, no vomiting Was asking when would he be able to go home Review of Systems Review of Systems: All systems reviewed & are unremarkable except as noted in Subjective Physical Exam 2 Physical Exam: Constitutional: No acute distress HEENT: EOMI, PERRLA Respiratory system: Decreased air entry bilaterally, no wheeze, no rhonchi, positive mild crackles bilaterally CVS: S1-S2 positive, no murmurs or gallops, accentuated P2, distant heart sounds Abdomen: Soft, nontender, nondistended, positive bowel sounds x4 Extremities: +2 pulses bilaterally radialis/ dorsalis pedis, no cyanosis, +2 pitting edema bilateral lower extremity Neuro: Awake alert oriented x3 Psych: Normal mood and affect G/U: No Adrian Skin: no rashes, warm and dry Lymphatic: no cervical or axillary lymphadenopathy Results & Data Results & Data ([facility]) Vital Signs (Past 12 Hours) Vital Signs Temp Pulse Pulse Pulse Resp BP Pulse Ox 10/26/21 07:26 75 10/26/21 07:12 75 20 95 10/26/21 06:57 36.4 C L 76 14 112/62 92 10/26/21 03:52 36.4 C L 83 16 115/60 91 10/26/21 03:46 87 20 90 10/26/21 00:27 82 22 91 10/25/21 23:19 87/45 L 10/25/21 23:18 36.7 C 83 16 93/52 L 89 L 10/25/21 22:30 85 10/25/21 22:10 92 H 22 90 Laboratory Results 10/26/21 06:11 10/26/21 06:11 PG Care Time/CCT Total # of Minutes Spent Total Time Spent with Patient: Total time spent is greater than 50% in coordination of care (as documented) at patient's floor/unit and/or counseling patient: Coding Level of Care Code 32188 Subseq Hosp Care Lvl 2 Diagnoses Acute on chronic respiratory failure with hypoxia J96.21 Adenocarcinoma of lung C34.90 Severe pulmonary hypertension I27.20
[2021-10-26] MEDS: SILDENAFIL CITRATE 20 MG TABLET PO SCH ×3 (08:53→21:42)
[2021-10-26] MEDS: FUROSEMIDE 20 MG TAB PO SCH (08:54)
[2021-10-26] MEDS: ATORVASTATIN 40 MG TAB PO SCH (08:54)
[2021-10-26] MEDS: AZITHROMYCIN 250 MG TAB PO SCH (08:54)
[2021-10-26] MEDS: CLOPIDOGREL BISULFATE 75 MG TAB PO SCH (08:54)
[2021-10-26] MEDS: FAMOTIDINE 20 MG TAB PO SCH (08:54)
[2021-10-26] MEDS: ASPIRIN 81 MG ECTAB PO SCH (08:54)
[2021-10-26] MEDS: UMECLIDINIUM/VILANTEROL 62.5/25MCG 7 PUFFS/INHALER INH SCH (08:55)
[2021-10-26] MEDS: methylPREDNISolone 40 MG in SYRINGE 0 ML IV SCH (09:38)
--- NOTE | 2021-10-26 14:17 | Hospitalist Progress Note ---
Date of Service October 26, 2021 Assessment & Plan (1) Acute on chronic respiratory failure with hypoxia: Plan: Most likely due to worsening Pulmonary hypertension, no wheeze on exam -Received SoluMedrol and DuoNebs in ED, as well as 40mg IV Lasix. Currently at 25 L, 65% high flow. -Solu-Medrol 60 mg IV Q12h --> 40 q12h continue to down titrate Pulm on board, appreciate recs. Started on sildenafil for pulmonary hypertension. Sildenafil 5 mg 3 times daily hold for hypotension, do not use nitrates. -DuoNebs scheduled Q6h - GOLD D -Mucinex BID prn, patient currently not with cough productive of sputum. -Continue home inhalers. -SpO2 goal 88-92%. Will benefit from outpatient sleep study and cardiac cath (2) Elevated troponin: Plan: -High sensitivity troponin 51.8, down trended. Consistent with demand ischemia -Without chest pain/tightness, palpitations and no new EKG changes -EKG without acute ST segment changes, repeat EKG as needed (3) Chronic obstructive pulmonary disease: Plan: -As above with acute exacerbation of COPD. -Treatment as above. -Continue home maintenance inhaler. (4) Adenocarcinoma of lung: Plan: -Diagnosed in June 2021, not a surgical candidate, completed radiation treatment last month. -PET positive left upper lobe 1.6 cm x 1 cm-->Increased in size to 2.2cm 08/2021, slightly decreased in size since completing radiation. Not a surgical candidate due to severe reduction in DLCO (5) Severe pulmonary hypertension: Plan: -Follows with pulmonology. -2D echo 01/22/2021:EF 70%,grade 1 diastolic dysfunction, severe pulmonary hypertension, RVSP 84, moderate right ventricular hypertrophy, moderately reduced RV function -Right heart cath not feasible due to current condition and O2 requirements. -Dr. Wang prescribed sildenafil 5mg TID on 09/10, however insurance denied this, patient has not been taking. This was resumed on inpatient as above 10/25 (6) Essential tremor: Plan: -Right hand, not new. -No medications for this currently. (7) GERD (gastroesophageal reflux disease): Plan: -Chronic, stable. -Continue Pepcid 20 mg daily. (8) Hyperlipidemia: Plan: -Chronic, stable. -Continue atorvastatin. (9) BPH (benign prostatic hyperplasia): Plan: -No current medications for this. (10) Carotid stenosis: Plan: -Near complete occlusion of LICA. -Asymptomatic today, continue ASA, Plavix. (11) Aortic aneurysm: Plan: -3.9 x 3.8 cm infrarenal AAA -Follow-up as an outpatient. (12) Bilateral lower extremity edema: Plan: -Mild-moderate, has been present for several week, no on a diuretic at home. -Received 40 IV Lasix today in ED.continued on Lasix as above Plan: continue to monitor Admission and Anticipated Discharge Date Admission Date: October 24, 2021 Subjective patient seen and examined, still on high flow oxygen Review of Systems Review of Systems: All systems reviewed are negative, apart from the ones contained in the history. Physical Exam Physical Exam: The patient is awake, alert and oriented 3, well developed and well nourished, normocephalic and atraumatic, lying in bed and in no acute distress. On high flow oxygen HEENT--PERRL, EOMI, mucous membranes and oropharynx mildly dry Neck--supple. No JVD. No bruits. Thyroid normal, trachea midline, no adenopathy. Heart--normal S1 and S2. No murmurs, rubs or gallops. Lungs--Reduced air entry, no wheeze or rhonchi. Abdomen--normal bowel sounds and soft. Mild epigastric and left sided abdominal pain Extremities--no cyanosis or clubbing. No edema. Dermatologic--normal skin turgor, normal color, no abnormal lymph nodes, no rash. Neurologic--cranial nerves II through XII grossly intact. Rheumatologic--normal range of motion. Psychiatric--normal affect. Results & Data Results & Data ([facility]) Vital Signs (Past 12 Hours) Vital Signs Temp Pulse Pulse Pulse Resp BP Pulse Ox 10/26/21 12:33 90 22 89 L 10/26/21 11:08 90 20 90 10/26/21 10:34 98.2 F 10/26/21 10:32 85 22 91/43 L 88 L 10/26/21 07:26 75 10/26/21 07:12 75 20 95 10/26/21 06:57 97.5 F L 76 14 112/62 92 10/26/21 03:52 97.5 F L 83 16 115/60 91 10/26/21 03:46 87 20 90 Laboratory Results Laboratory Results - last 24 hr 10/25/21 10/26/21 10/26/21 05:58 06:11 06:11 WBC 10.08 RBC 3.67 L Hgb 12.9 L Hct 38.5 L MCV 104.9 H MCH 35.1 H MCHC 33.5 RDW Std Deviation 58.0 H RDW Coeff of Megan 15.2 H Plt Count 119 L MPV 10.2 Immature Gran % (Auto) 0.2 Neut % (Auto) 91.0 Lymph % (Auto) 4.9 [place] % (Auto) 3.9 Eos % (Auto) 0.0 Baso % (Auto) 0.0 Neut # (Auto) 9.18 H Lymph # (Auto) 0.49 L [place] # (Auto) 0.39 Eos # (Auto) 0.00 Baso # (Auto) 0.00 Immature Gran # (Auto) 0.02 Sodium 137 Potassium 4.3 Chloride 106 Carbon Dioxide 21 Anion Gap 10 BUN 27 H Creatinine 0.93 Est Cr Clr Drug Dosing 75.3 Est GFR ( Amer) 94.1 Est GFR (Non-Af Amer) 81.2 BUN/Creatinine Ratio 29.0 H Glucose 162 H Calcium 8.7 Hepatitis C Ab (EIA) NON-REACTIVE Hep C Ab Signal/Cutoff 0.01 PG Care Time/CCT Total # of Minutes Spent Total Time Spent with Patient: Total time spent is greater than 50% in coordination of care (as documented) at patient's floor/unit and/or counseling patient: Coding Level of Care Code 96642 Subseq Hosp Care Lvl 2 Diagnoses Acute on chronic respiratory failure with hypoxia J96.21 Elevated troponin R77.8 Chronic obstructive pulmonary disease J44.9 Adenocarcinoma of lung C34.90 Severe pulmonary hypertension I27.20 Essential tremor G25.0 GERD (gastroesophageal reflux disease) K21.9 Hyperlipidemia E78.5 BPH (benign prostatic hyperplasia) N40.0 Carotid stenosis I65.29 Aortic aneurysm I71.9 Bilateral lower extremity edema R60.0 Time Spent (min) 35
[2021-10-26] MEDS: ENOXAPARIN INJ 40 MG/0.4 ML SYR SQ SCH (16:51)
[2021-10-27] MEDS: ALBUT/IPRATROP 3MG/0.5MG NEB 3 ML VIAL INH SCH ×4 (00:13→19:09)
[2021-10-27] MEDS: BUDESONIDE 0.25 MG/2 ML VIAL (PULMICORT) INH SCH ×2 (07:07→19:09)
--- NOTE | 2021-10-27 08:26 | Pulmonology Progress Note ---
Date of Service October 27, 2021 Assessment & Plan (1) Acute on chronic respiratory failure with hypoxia: (2) Adenocarcinoma of lung: (3) Severe pulmonary hypertension: Plan: --Acute on chronic chronic hypoxic respiratory failure Is on baseline 8 L nasal cannula on exertion Multifactorial Patient does have COPD he also has severe pulmonary hypertension Continue with inhaled bronchodilators I doubt patient is in COPD exacerbation but okay to continue with steroids. We will gradually titrate it down in the next couple of days Started on sildenafil 5 mg 3 times a day to see if makes any difference in his oxygen requirement and shortness of breath Patient does not seem to have hypercapnia on the ABG. He would not be a candidate for AVAPS. He will benefit from polysomnography as an outpatient. --Pulmonary hypertension Severe Likely combination of type II and type III Given the significant pulmonary hypertension and him requiring more liters of oxygen. 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 Gold class D At home Budesonide 250 MCG nebulized twice a day , Stiolto 2 puffs on a daily basis till the samples last and then nebulizers on a regular basis PFTs 02/21/2021:Moderate COPD with emphysema, insignificant bronchodilator response,mixed obstructive restrictive lung disease, severe decrease in DLCO which does not correct for VA FVC 3.59 L 78%, FEV1 2.39 L 68%, FEV1/FVC 66%, RV 94%,TLC is 76%, RV/TLC- 19%, DLCO 31%, DLCO/VA 57% --Adenocarcinoma of the left upper lobe Patient is not a surgical candidate given the significant decrease in DLCO Patient has completed radiation therapy The nodule seems to have decreased in size compared to before --Ex-smoker Greater than [id number] smoking history Quit in 2006 Encouraged to continue with abstinence from smoking Plan: In/out: -1260, urine output 1560 Patient did some episodes of low blood pressure but he was not complaining of any symptoms. Today the morning blood pressure was systolic 139. Would continue with sild enafil 5 mg 3 times daily. I would not like to increase the dose given the low blood pressure during the day. Continue with Lasix 20 mg for couple days. There is discrepancy when it comes to O2 saturation. The forehead O2 saturation is usually 4% higher than the one on the fingers. Peripheral vascular disease might be one of the reason why you are having this discrepancy. I would like the patient saturation to be between 88-92% Patient has been asking regarding discharge. I do think patient can go to a rehab facility where they have high flow. I do think it will take time for him to be weaned off of the high flow. Case discussed with Please note the above document was generated using voice recognition software. It may contain grammatical, syntax or spelling errors.Any formal questions or concerns about the content, text or information contained within the body of this dictation should be directly addressed to the provider for clarification. Admission and Anticipated Discharge Date Admission Date: October 24, 2021 Subjective Patient seen and examined at bedside. No acute distress, no adverse events ove rnight. Denies any headache, no nausea vomiting Has been urinating well with Lasix. No chest pain. Was on high flow 25 L, 65% saturating 93-94% on the forehead oximeter. I went down to 55% 90 saturation was still 90-91% on the forehead oximeter. When I put the pulse ox on the fingers it was reading at the same time 85-86%. Dr. Yusef Cruz Review of Systems Review of Systems: All systems reviewed & are unremarkable except as noted in Subjective Physical Exam Physical Exam: Constitutional: No acute distress HEENT: EOMI, PERRLA Respiratory system: Decreased air entry bilaterally, no wheeze, no rhonchi, positive mild crackles bilaterally CVS: S1-S2 positive, no murmurs or gallops, accentuated P2, distant heart sounds Abdomen: Soft, nontender, nondistended, positive bowel sounds x4 Extremities: +2 pulses bilaterally radialis/ dorsalis pedis, no cyanosis, +1 pit ting edema bilateral lower extremity Neuro: Awake alert oriented x3 Psych: Normal mood and affect G/U: No Adrian Skin: no rashes, warm and dry Lymphatic: no cervical or axillary lymphadenopathy Results & Data Results & Data ([facility] [place]) Vital Signs (Past 12 Hours) Vital Signs Temp Pulse Pulse Resp BP Pulse Ox 04/16/22 07:42 36.4 C L 69 20 139/84 95 10/27/21 07:30 70 10/27/21 07:07 68 20 91 10/27/21 03:26 74 18 93 10/27/21 02:56 36.5 C 75 16 119/76 93 10/27/21 00:14 78 19 90 10/27/21 00:13 78 19 90 10/26/21 23:21 36.9 C 82 20 114/78 93 10/26/21 22:11 70 18 93 10/26/21 21:23 36.6 C 78 16 106/64 91 Laboratory Results 10/26/21 06:11 10/26/21 06:11 PG Care Time/CCT Total # of Minutes Spent Total Time Spent with Patient: Total time spent is greater than 50% in coordination of care (as documented) at patient's floor/unit and/or counseling patient: Coding Level of Care Code 10058 Subseq Hosp Care Lvl 3 Diagnoses Acute on chronic respiratory failure with hypoxia J96.21 Adenocarcinoma of lung C34.90 Severe pulmonary hypertension I27.20
[2021-10-27] MEDS: methylPREDNISolone 40 MG in SYRINGE 0 ML IV SCH (08:28)
[2021-10-27] MEDS: SILDENAFIL CITRATE 20 MG TABLET PO SCH ×3 (08:28→22:07)
[2021-10-27] MEDS: ASPIRIN 81 MG ECTAB PO SCH (08:28)
[2021-10-27] MEDS: AZITHROMYCIN 250 MG TAB PO SCH (08:29)
[2021-10-27] MEDS: FUROSEMIDE 20 MG TAB PO SCH (08:29)
[2021-10-27] MEDS: FAMOTIDINE 20 MG TAB PO SCH (08:29)
[2021-10-27] MEDS: CLOPIDOGREL BISULFATE 75 MG TAB PO SCH (08:29)
[2021-10-27] MEDS: UMECLIDINIUM/VILANTEROL 62.5/25MCG 7 PUFFS/INHALER INH SCH (08:29)
[2021-10-27] MEDS: ATORVASTATIN 40 MG TAB PO SCH (08:29)
--- NOTE | 2021-10-27 12:51 | Hospitalist Progress Note ---
Date of Service October 27, 2021 Assessment & Plan (1) Acute on chronic respiratory failure with hypoxia: Plan: Most likely due to worsening Pulmonary hypertension and COPD, however no wheeze on exam Patient was on high flow 25 L, 65% saturating 93-94% on the forehead oximeter, when it was turned down to 55% 90 saturation was still 90-91% on the forehead oximeter. When the pulse ox was put back on the fingers it was reading at the same time 85-86%. There seems to be a discrepancy, could be due to an underlying PVD -Solu-Medrol 60 mg IV Q12h --> 40 q12h continue to down titrate Pulm on board, appreciate recs. Started on sildenafil for pulmonary hypertension. Sildenafil 5 mg 3 times daily hold for hypotension, do not use nitrates. -DuoNebs scheduled Q6h -Mucinex BID prn, patient currently not with cough productive of sputum. -Continue home inhalers. -SpO2 goal 88-92%. Will benefit from outpatient sleep study and cardiac cath, however, patient still on high flow oxygen and may not be a good candidate -Plan is placement in a facility with capability for high flow oxygen (2) Elevated troponin: Plan: -most likely due to demand ischemia -Without chest pain/tightness, palpitations and no new EKG changes -EKG without acute ST segment changes, repeat EKG as needed (3) Chronic obstructive pulmonary disease: Plan: -As above with acute exacerbation of COPD. -Treatment as above. -Continue home maintenance inhaler. (4) Adenocarcinoma of lung: Plan: -Diagnosed in June 2021, not a surgical candidate, completed radiation treatment last month. -PET positive left upper lobe 1.6 cm x 1 cm-->Increased in size to 2.2cm 08/2021, slightly decreased in size since completing radiation. Not a surgical candidate due to severe reduction in DLCO (5) Severe pulmonary hypertension: Plan: -Follows with pulmonology. -2D echo 01/22/2021:EF 70%,grade 1 diastolic dysfunction, severe pulmonary hypertension, RVSP 84, moderate right ventricular hypertrophy, moderately reduced RV function -Right heart cath not feasible due to current condition and O2 requirements. -Dr. Wang prescribed sildenafil 5mg TID on 09/10, however insurance denied this, patient has not been taking. This was resumed on inpatient as above 10/25 (6) Essential tremor: Plan: -Right hand, not new. -No medications for this currently. (7) GERD (gastroesophageal reflux disease): Plan: -Chronic, stable. -Continue Pepcid 20 mg daily. (8) Hyperlipidemia: Plan: -Chronic, stable. -Continue atorvastatin. (9) BPH (benign prostatic hyperplasia): Plan: -No current medications for this. (10) Carotid stenosis: Plan: -Near complete occlusion of LICA. -Asymptomatic today, continue ASA, Plavix. (11) Aortic aneurysm: Plan: -3.9 x 3.8 cm infrarenal AAA -Follow-up as an outpatient. (12) Bilateral lower extremity edema: Plan: -Mild-moderate, has been present for several week, no on a diuretic at home. -Received 40 IV Lasix today in ED.continued on Lasix as above Plan: Discharge to a facility with capability for High flow oxygen Admission and Anticipated Discharge Date Admission Date: October 24, 2021 Subjective patient seen and examined today, still on high flow Review of Systems Review of Systems: All systems reviewed are negative, apart from the ones contained in the history. Physical Exam Physical Exam: The patient is awake, alert and oriented 3, well developed and well nourished, normocephalic and atraumatic, lying in bed and in no acute distress. On high flow oxygen HEENT--PERRL, EOMI, mucous membranes and oropharynx mildly dry Neck--supple. No JVD. No bruits. Thyroid normal, trachea midline, no adenopathy. Heart--normal S1 and S2. No murmurs, rubs or gallops. Lungs--Reduced air entry, no wheeze or rhonchi. Abdomen--normal bowel sounds and soft. Mild epigastric and left sided abdominal pain Extremities--no cyanosis or clubbing. No edema. Dermatologic--normal skin turgor, normal color, no abnormal lymph nodes, no rash. Neurologic--cranial nerves II through XII grossly intact. Rheumatologic--normal range of motion. Psychiatric--normal affect. Results & Data Results & Data ([facility]) Vital Signs (Past 12 Hours) Vital Signs Temp Pulse Pulse Resp BP Pulse Ox 10/27/21 11:32 98.2 F 78 20 131/72 91 10/27/21 07:42 97.5 F L 69 20 139/84 95 10/27/21 07:30 70 10/27/21 07:07 68 20 91 10/27/21 03:26 74 18 93 10/27/21 02:56 97.7 F 75 16 119/76 93 PG Care Time/CCT Total # of Minutes Spent Total Time Spent with Patient: Total time spent is greater than 50% in coordination of care (as documented) at patient's floor/unit and/or counseling patient: Coding Level of Care Code 94890 Subseq Hosp Care Lvl 2 Diagnoses Acute on chronic respiratory failure with hypoxia J96.21 Elevated troponin R77.8 Chronic obstructive pulmonary disease J44.9 Adenocarcinoma of lung C34.90 Severe pulmonary hypertension I27.20 Essential tremor G25.0 GERD (gastroesophageal reflux disease) K21.9 Hyperlipidemia E78.5 BPH (benign prostatic hyperplasia) N40.0 Carotid stenosis I65.29 Aortic aneurysm I71.9 Bilateral lower extremity edema R60.0 Time Spent (min) 35
[2021-10-27] MEDS: ENOXAPARIN INJ 40 MG/0.4 ML SYR SQ SCH (18:01)
[2021-10-28] MEDS: OXYMETAZOLINE 0.05% 30 ML BTL PRN (01:01)
[2021-10-28] MEDS: ALBUT/IPRATROP 3MG/0.5MG NEB 3 ML VIAL INH SCH ×4 (07:21→19:08)
[2021-10-28] MEDS: BUDESONIDE 0.25 MG/2 ML VIAL (PULMICORT) INH SCH ×2 (07:21→19:09)
--- NOTE | 2021-10-28 08:19 | Pulmonology Progress Note ---
Date of Service October 28, 2021 Assessment & Plan (1) Acute on chronic respiratory failure with hypoxia: (2) Adenocarcinoma of lung: (3) Severe pulmonary hypertension: Plan: --Acute on chronic chronic hypoxic respiratory failure Is on baseline 8 L nasal cannula on exertion Multifactorial Patient does have COPD he also has severe pulmonary hypertension Continue with inhaled bronchodilators I doubt patient is in COPD exacerbation but okay to continue with steroids. We will gradually titrate it down in the next couple of days Started on sildenafil 5 mg 3 times a day for 3 days but unfortunately there was no improvement in patient's saturation. Discontinued on 10/28/2021 Patient does not seem to have hypercapnia on the ABG. He would not be a candidate for AVAPS. He will benefit from polysomnography as an outpatient. --Pulmonary hypertension Severe Likely combination of type II and type III Given the significant pulmonary hypertension and him requiring more liters of oxygen. 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 Gold class D At home Budesonide 250 MCG nebulized twice a day , Stiolto 2 puffs on a daily basis till the samples last and then nebulizers on a regular basis PFTs 02/21/2021:Moderate COPD with emphysema, insignificant bronchodilator response,mixed obstructive restrictive lung disease, severe decrease in DLCO which does not correct for VA FVC 3.59 L 78%, FEV1 2.39 L 68%, FEV1/FVC 66%, RV 94%,TLC is 76%, RV/TLC- 19%, DLCO 31%, DLCO/VA 57% --Adenocarcinoma of the left upper lobe Patient is not a surgical candidate given the significant decrease in DLCO Patient has completed radiation therapy The nodule seems to have decreased in size compared to before --Ex-smoker Greater than 44-yobw-akdy smoking history Quit in 2006 Encouraged to continue with abstinence from smoking Plan: In/out: -641, urine output 1001 Chest x-ray from today does not show any significant change in the time of presentation. Left upper lobe nodule still appreciated Given that sildenafil has not made any difference in patient's symptoms as well as oxygen requirement, I will discontinue it Still requiring significant amount of oxygen unfortunately. Continue with diuresis Please note the above document was generated using voice recognition software. It may contain grammatical, syntax or spelling errors.Any formal questions or concerns about the content, text or information contained within the body of this dictation should be directly addressed to the provider for clarification. Admission and Anticipated Discharge Date Admission Date: October 24, 2021 Subjective Patient seen and examined at bedside. No acute distress, no adverse events overnight At the time of examination he had just come back from [facility]. He was saturatin g 79-80%. On taking deep breaths he did improve to 89-91% Overall he says is is feeling the same. Denies any chest pain, no headache, no nausea, no vomiting Has been urinating well. Fair appetite. Asking when he can go to a rehab facility Review of Systems Review of Systems: All systems reviewed & are unremarkable except as noted in Subjective Physical Exam Physical Exam: Constitutional: No acute distress HEENT: EOMI, PERRLA Respiratory system: Decreased air entry bilaterally, no wheeze, no rhonchi, positive mild crackles bilaterally CVS: S1-S2 positive, no murmurs or gallops, accentuated P2, distant heart sounds Abdomen: Soft, nontender, nondistended, positive bowel sounds x4 Extremities: +2 pulses bilaterally radialis/ dorsalis pedis, no cyanosis, +1 pitting edema bilateral lower extremity Neuro: Awake alert oriented x3 Psych: Normal mood and affect G/U: No Adrian Skin: no rashes, warm and dry Lymphatic: no cervical or axillary lymphadenopathy Results & Data Results & Data ([facility]) Vital Signs (Past 12 Hours) Vital Signs Temp Pulse Pulse Pulse Resp BP Pulse Ox 10/28/21 07:40 64 10/28/21 07:23 36.5 C 65 18 147/92 H 93 10/28/21 07:22 69 18 92 10/28/21 03:35 68 18 96 10/28/21 03:34 37.2 C 66 18 131/85 97 10/28/21 00:01 74 16 94 10/27/21 23:39 36.8 C 78 18 117/55 L 92 10/27/21 22:36 75 18 93 10/27/21 22:18 78 10/27/21 20:23 84 101/61 Laboratory Results 10/26/21 06:11 10/26/21 06:11 PG Care Time/CCT Total # of Minutes Spent Total Time Spent with Patient: Total time spent is greater than 50% in coordination of care (as documented) at patient's floor/unit and/or counseling patient: Coding Level of Care Code 59970 Subseq Hosp Care Lvl 2 Diagnoses Acute on chronic respiratory failure with hypoxia J96.21 Adenocarcinoma of lung C34.90 Severe pulmonary hypertension I27.20
[2021-10-28] MEDS: SILDENAFIL CITRATE 20 MG TABLET PO SCH (08:34)
[2021-10-28] MEDS: FAMOTIDINE 20 MG TAB PO SCH (08:34)
[2021-10-28] MEDS: FUROSEMIDE 20 MG TAB PO SCH (08:34)
[2021-10-28] MEDS: ATORVASTATIN 40 MG TAB PO SCH (08:34)
[2021-10-28] MEDS: CLOPIDOGREL BISULFATE 75 MG TAB PO SCH (08:35)
[2021-10-28] MEDS: methylPREDNISolone 40 MG in SYRINGE 0 ML IV SCH (08:35)
[2021-10-28] MEDS: AZITHROMYCIN 250 MG TAB PO SCH (08:35)
[2021-10-28] MEDS: UMECLIDINIUM/VILANTEROL 62.5/25MCG 7 PUFFS/INHALER INH SCH (08:35)
[2021-10-28] MEDS: ASPIRIN 81 MG ECTAB PO SCH (08:35)
--- NOTE | 2021-10-28 08:56 | XRay Report ---
XR chest 1V portable HISTORY: 71 years-old Male f/u up follow-up study in a patient with acute shortness of breath COMPARISON: CTA chest and chest radiograph studies 10/24/2021, chest CT 08/20/2021 TECHNIQUE: Portable AP view of the chest FINDINGS: The cardiomediastinal and hilar silhouettes are within normal limits. Emphysema with mild bibasilar d ensities. Spiculated lesion of the left lung apex with ill-defined right apical nodular density redem onstrated. No pneumothorax. Small pleural effusions. Bones appear grossly intact. IMPRESSION: 1. Emphysema with mild bibasilar densities favoring atelectasis. 2. Suspicious irregular nodule of left upper lobe redemonstrated. 3. Small pleural effusions. ACT 112: Negative or not required by law. The above report was generated using voice recognition software. It may contain grammatical, syntax o r spelling errors. Electronically signed by: Mikey Cid M.D. 10/28/2021 8:54 AM
[2021-10-28] MEDS ORDERED: CALCIUM CARBONATE 500 MG CHEWABLE TAB PO PRN (09:01)
[2021-10-28 09:18] LABS: BUN Creatinine Ratio 31.8 (10-20); Creatinine Clr Calc Pharmacy 82.4 ml/min; Est GFR (African American) 100.2 ml/min; Est GFR (Non-African American) 86.4 ml/min; Magnesium 2.2 mg/dl (1.7-2.4); Potassium 3.9 mmol/L (3.5-5.1)
--- NOTE | 2021-10-28 13:47 | Hospitalist Progress Note ---
Date of Service October 28, 2021 Assessment & Plan (1) Acute on chronic respiratory failure with hypoxia: Plan: Most likely due to worsening Pulmonary hypertension and COPD, no wheeze on exam w/ suspected PVD, forehead O2 readings higher than peripheral -Solu-Medrol 60 mg IV Q12h --> 40 q12h --> daily Pulm on board, appreciate recs. Started on sildenafil for pulmonary hypertension, did not feel any benefit from this and has since been discontinued - Continue DuoNebs -Mucinex BID prn, patient currently not with cough productive of sputum. -Continue home inhalers. -SpO2 goal 88-92%, high flow with wean as able Will benefit from outpatient sleep study and cardiac cath, however, patient still on high flow oxygen and may not be a good candidate -Plan is placement in a facility with capability for high flow oxygen. Case management aware and looking at temporarly LTAC/High FLow availability options - Cr 0.85 - Continue diuresis w/ Lasix 20mg qAM - Net 741 out/24hrs (2) Elevated troponin: Plan: -most likely due to demand ischemia -Without chest pain/tightness, palpitations and no new EKG changes -EKG without acute ST segment changes, repeat EKG as needed High-sensitivity troponin mildly elevated, down trended (3) Chronic obstructive pulmonary disease: Plan: -As above with acute exacerbation of COPD. -Treatment as above. -Continue home maintenance inhaler. (4) Adenocarcinoma of lung: Plan: -Diagnosed in June 2021, not a surgical candidate, completed radiation treatment last month. -PET positive left upper lobe 1.6 cm x 1 cm-->Increased in size to 2.2cm 08/2021, slightly decreased in size since completing radiation. Not a surgical candidate due to severe reduction in DLCO (5) Severe pulmonary hypertension: Plan: -Follows with pulmonology. -2D echo 01/22/2021:EF 70%,grade 1 diastolic dysfunction, severe pulmonary hypertension, RVSP 84, moderate right ventricular hypertrophy, moderately reduced RV function -Right heart cath not feasible due to current condition and O2 requirements. -Dr. Wang prescribed sildenafil 5mg TID on 09/10, however insurance denied this, patient has not been taking. This was resumed on inpatient as above 10/25. Pt did not experience benefit, subsequently discontinued. (6) Essential tremor: Plan: -Right hand, not new. -No medications for this currently. (7) GERD (gastroesophageal reflux disease): Plan: -Chronic, stable. -Continue Pepcid 20 mg daily. (8) Hyperlipidemia: Plan: -Chronic, stable. -Continue atorvastatin. (9) BPH (benign prostatic hyperplasia): Plan: -No current medications for this. (10) Carotid stenosis: Plan: -Near complete occlusion of LICA. -Asymptomatic, continue ASA, Plavix. (11) Aortic aneurysm: Plan: -3.9 x 3.8 cm infrarenal AAA -Follow-up as an outpatient. (12) Bilateral lower extremity edema: Plan: -Mild-moderate, has been present for several week, no on a diuretic at home. -Received 40 IV Lasix today in ED. continued on Lasix as above Plan: Discharge to a facility with capability for High flow oxygen Admission and Anticipated Discharge Date Admission Date: October 24, 2021 Subjective Jun is seen at the bedside this morning. He reports he continues to be short of breath with exertion including sitting up at the bedside to be. He is not short of breath laying in bed while on high flow. He denies fever, chills, sweats, chest pain, chest pressure, lightheadedness, dizziness, syncope. Is able to pee, but is frustrated by difficulty with shortness of breath when he has to sit up to do so. Had some soft blood pressure after sildenafil yesterday, did not notice a substantial change in his breathing after. No syncopal/presyncopal symptoms. Review of Systems Review of Systems: All systems reviewed & are unremarkable except as noted in Subjective Physical Exam Physical Exam: General: A&Ox3. NAD. Cooperative. Laying in bed on high flow 25/70 HEENT: Atraumatic, normocephalic. Vision/hearing grossly intact. Pulm: Globally diminished. No wheezes or rales, bibasilar trace crackles. Symmetrical chest rise. Cardiac: RRR, -mrg. Radial pulses intact and symmetrical. Abdominal: Nontender, nondistended, soft. BS present. Extremities: Bilateral pitting edema. V Belt Curer strength, ankle dorsiflexion/plantarflexion grossly intact and symmetrical. Sensation to soft touch intact bilaterally. Results & Data Results & Data ([facility]) Vital Signs (Past 12 Hours) Vital Signs Temp Pulse Pulse Pulse Resp BP Pulse Ox 10/28/21 13:25 74 18 96 10/28/21 12:03 36.4 C L 77 18 140/70 93 10/28/21 11:16 71 16 94 10/28/21 07:40 64 10/28/21 07:23 36.5 C 65 18 147/92 H 93 10/28/21 07:22 69 18 92 10/28/21 03:35 68 18 96 10/28/21 03:34 37.2 C 66 18 131/85 97 PG Care Time/CCT Total # of Minutes Spent Total Time Spent with Patient: Total time spent is greater than 50% in coordination of care (as documented) at patient's floor/unit and/or counseling patient: Coding Level of Care Code 44188 Subseq Hosp Care Lvl 2 Diagnoses Acute on chronic respiratory failure with hypoxia J96.21 Elevated troponin R77.8 Chronic obstructive pulmonary disease J44.9 Adenocarcinoma of lung C34.90 Severe pulmonary hypertension I27.20 Essential tremor G25.0 GERD (gastroesophageal reflux disease) K21.9 Hyperlipidemia E78.5 BPH (benign prostatic hyperplasia) N40.0 Carotid stenosis I65.29 Aortic aneurysm I71.9 Bilateral lower extremity edema R60.0
[2021-10-28] MEDS: ENOXAPARIN INJ 40 MG/0.4 ML SYR SQ SCH (18:25)
[2021-10-29] MEDS: ALBUT/IPRATROP 3MG/0.5MG NEB 3 ML VIAL INH SCH ×4 (00:43→19:22)
[2021-10-29] MEDS: BUDESONIDE 0.25 MG/2 ML VIAL (PULMICORT) INH SCH ×2 (07:14→19:21)
[2021-10-29 07:51] LABS: BUN Creatinine Ratio 31.7 (10-20); Calcium 8.7 mg/dl (8.5-10.1); Creatinine Clr Calc Pharmacy 85.5 ml/min; Est GFR (African American) 101.7 ml/min; Est GFR (Non-African American) 87.7 ml/min; Potassium 3.9 mmol/L (3.5-5.1)
[2021-10-29] MEDS: methylPREDNISolone 40 MG in SYRINGE 0 ML IV SCH (09:01)
[2021-10-29] MEDS: CLOPIDOGREL BISULFATE 75 MG TAB PO SCH (09:01)
[2021-10-29] MEDS: FAMOTIDINE 20 MG TAB PO SCH (09:01)
[2021-10-29] MEDS: ASPIRIN 81 MG ECTAB PO SCH (09:01)
[2021-10-29] MEDS: FUROSEMIDE 20 MG TAB PO SCH (09:01)
[2021-10-29] MEDS: UMECLIDINIUM/VILANTEROL 62.5/25MCG 7 PUFFS/INHALER INH SCH (09:02)
[2021-10-29] MEDS: ATORVASTATIN 40 MG TAB PO SCH (09:02)
--- NOTE | 2021-10-29 09:05 | Pulmonology Progress Note ---
Date of Service October 29, 2021 Assessment & Plan (1) Severe pulmonary hypertension: Plan: Consider transfer to a pulmonary hypertension center for the patient undergo right heart catheterization and consideration of IV prostanoids. Continue to maintain euvolemia at this time. (2) Acute on chronic respiratory failure with hypoxia: Plan: Likely exacerbated due to underlying pulmonary hypertension. Continue to wean oxygen saturations between 88 to 92%. (3) Adenocarcinoma of lung: Plan: Status post radiation therapy and SBRT. Follow-up with radiation oncology as an outpatient. Admission and Anticipated Discharge Date Admission Date: October 24, 2021 Subjective Patient remained stable on high flow nasal cannula. Denies any chest pain, fevers or chills. Review of Systems Review of Systems: All systems reviewed & are unremarkable except as noted in HPI & below Physical Exam Physical Exam: Constitutional: No acute distress HEENT: EOMI, PERRLA Respiratory system: Diminished lung sounds bilaterally. No use of accessory muscles. CVS: S1-S2 positive, no murmurs or gallops, accentuated P2, distant heart sounds Abdomen: Soft, nontender, nondistended, positive bowel sounds x4 Extremities: +2 pulses bilaterally radialis/ dorsalis pedis, no cyanosis, +1 pitting edema bilateral lower extremity Neuro: Awake alert oriented x3 Psych: Normal mood and affect G/U: No Adrian Skin: no rashes, warm and dry Lymphatic: no cervical or axillary lymphadenopathy Results & Data Results & Data ([facility]) Vital Signs (Past 12 Hours) Vital Signs Temp Pulse Pulse Resp BP Pulse Ox 10/29/21 07:41 36.4 C L 74 18 153/84 H 91 10/29/21 07:15 66 20 90 10/29/21 03:46 36.5 C 71 18 129/67 90 10/29/21 03:10 69 18 97 10/29/21 00:44 73 18 95 10/28/21 23:22 36.4 C L 75 18 121/75 92 10/28/21 22:23 85 PG Care Time/CCT Total # of Minutes Spent Total Time Spent with Patient: Total time spent is greater than 50% in coordination of care (as documented) at patient's floor/unit and/or counseling patient: Coding Level of Care Code 09429 Subseq Hosp Care Lvl 2 Diagnoses Acute on chronic respiratory failure with hypoxia J96.21 Adenocarcinoma of lung C34.90 Severe pulmonary hypertension I27.20
--- NOTE | 2021-10-29 13:56 | Hospitalist Progress Note ---
Date of Service October 29, 2021 Assessment & Plan (1) Acute on chronic respiratory failure with hypoxia: Plan: Most likely due to worsening Pulmonary hypertension and COPD, no wheeze on exam w/ suspected PVD, forehead O2 readings higher than peripheral -Solu-Medrol 60 mg IV Q12h --> 40 q12h --> daily Pulm on board, appreciate recs. Started on sildenafil for pulmonary hypertension, did not feel any benefit from this and has since been discontinued - Continue DuoNebs -Mucinex BID prn, patient currently not with cough productive of sputum. -Continue home inhalers. -SpO2 goal 88-92%, high flow with wean as able Will benefit from outpatient sleep study and cardiac cath, however, patient still on high flow oxygen and may not be a good candidate -Plan is placement in a facility with capability for high flow oxygen. Case management aware and looking at temporarly LTAC/High FLow availability options - Cr 0.85 - Continue diuresis w/ Lasix 20mg qAM - Net 741 out/24hrs - severe PAH functional class IV (patient with inability to perform minimal activities, dyspnea at rest and significantly worsened with any activity). Suspected class II/III pulmonary hypertension with underlying emphysema and left heart disease. Last echo with mod concentric LVH. COPD class D. Last PFTs 02/2021 moderate COPD with emphysema, FVC 78%, FEV1 68%, FEV1/FVC 66%, TLC 76%, DLCO 31% Seen by pulmonology. Can consider transfer to pulmonary hypertension center for right heart cath/IV prostanoids. (2) Adenocarcinoma of lung: Plan: -Diagnosed in June 2021, not a surgical candidate, completed radiation treatment last month. -PET positive left upper lobe 1.6 cm x 1 cm-->Increased in size to 2.2cm 08/2021, slightly decreased in size since completing radiation. Not a surgical candidate due to severe reduction in DLCO (3) Elevated troponin: Plan: -most likely due to demand ischemia -Without chest pain/tightness, palpitations and no new EKG changes -EKG without acute ST segment changes, repeat EKG as needed High-sensitivity troponin mildly elevated, down trended (4) Chronic obstructive pulmonary disease: Plan: -As above with acute exacerbation of COPD. -Treatment as above. -Continue home maintenance inhaler. (5) Severe pulmonary hypertension: Plan: -Follows with pulmonology. -2D echo 01/22/2021:EF 70%,grade 1 diastolic dysfunction, severe pulmonary hypertension, RVSP 84, moderate right ventricular hypertrophy, moderately reduced RV function -Right heart cath not feasible due to current condition and O2 requirements. -Dr. Wang prescribed sildenafil 5mg TID on 09/10, however insurance denied this, patient has not been taking. This was resumed on inpatient as above 10/25. Pt did not experience benefit, subsequently discontinued. (6) Essential tremor: Plan: -Right hand, not new. -No medications for this currently. (7) GERD (gastroesophageal reflux disease): Plan: -Chronic, stable. -Continue Pepcid 20 mg daily. (8) Hyperlipidemia: Plan: -Chronic, stable. -Continue atorvastatin. (9) BPH (benign prostatic hyperplasia): Plan: -No current medications for this. (10) Carotid stenosis: Plan: -Near complete occlusion of LICA. -Asymptomatic, continue ASA, Plavix. (11) Aortic aneurysm: Plan: -3.9 x 3.8 cm infrarenal AAA -Follow-up as an outpatient. (12) Bilateral lower extremity edema: Plan: -Mild-moderate, has been present for several week, no on a diuretic at home. -Received 40 IV Lasix today in ED. continued on Lasix as above Plan: Discharge to a facility with capability for High flow oxygen Admission and Anticipated Discharge Date Admission Date: October 24, 2021 Subjective Seen at bedside this morning. Feels he has had no change from yesterday. At rest his high flow is able to be weaned down slightly, but he quickly desaturates even sitting up in bed to be. Relatively euvolemic, tolerating Lasix daily. Pending remains normal. Sildenafil discontinued for lack of benef it. Review of Systems Review of Systems: All systems reviewed & are unremarkable except as noted in Subjective Physical Exam Physical Exam: General: A&Ox3. NAD. Cooperative. Laying in bed on high flow / HEENT: Atraumatic, normocephalic. Vision/hearing grossly intact. Pulm: Globally diminished. No wheezes or rales, normal resolution of trace bibasilar crackles. Symmetrical chest rise. Cardiac: RRR, -mrg. Radial pulses intact and symmetrical. Abdominal: Nontender, nondistended, soft. BS present. Extremities: Bilateral pitting edema. Stick Puller strength, ankle dorsiflexion/plantarflexion grossly intact and symmetrical. Sensation to soft touch intact bilaterally. Results & Data Results & Data ([facility]) Vital Signs (Past 12 Hours) Vital Signs Temp Pulse Pulse Resp BP Pulse Ox 10/29/21 13:29 86 20 90 10/29/21 10:57 88 24 94 10/29/21 08:00 66 10/29/21 07:41 36.4 C L 74 18 153/84 H 91 10/29/21 07:15 66 20 90 10/29/21 03:46 36.5 C 71 18 129/67 90 10/29/21 03:10 69 18 97 PG Care Time/CCT Total # of Minutes Spent Total Time Spent with Patient: Total time spent is greater than 50% in coordination of care (as documented) at patient's floor/unit and/or counseling patient: Coding Level of Care Code 05878 Subseq Hosp Care Lvl 3 Diagnoses Acute on chronic respiratory failure with hypoxia J96.21 Elevated troponin R77.8 Chronic obstructive pulmonary disease J44.9 Adenocarcinoma of lung C34.90 Severe pulmonary hypertension I27.20 Essential tremor G25.0 GERD (gastroesophageal reflux disease) K21.9 Hyperlipidemia E78.5 BPH (benign prostatic hyperplasia) N40.0 Carotid stenosis I65.29 Aortic aneurysm I71.9 Bilateral lower extremity edema R60.0
[2021-10-29] MEDS: ENOXAPARIN INJ 40 MG/0.4 ML SYR SQ SCH (18:00)
[2021-10-30] MEDS: ALBUT/IPRATROP 3MG/0.5MG NEB 3 ML VIAL INH SCH ×4 (00:37→19:09)
[2021-10-30] MEDS: BUDESONIDE 0.25 MG/2 ML VIAL (PULMICORT) INH SCH ×2 (07:25→19:09)
[2021-10-30 08:10] LABS: Eosinophils # (auto) 0.04 K/uL (0-0.5); Eosinophils % (auto) 0.5 %; Hematocrit (blood only) 43.7 % (42-52); Hemoglobin 14.6 g/dL (14.0-18.0); Immature Granulocytes # (auto) 0.02 K/uL (0.00-0.02); Immature Granulocytes % (auto) 0.3 %; Lymphocytes # (auto) 1.65 K/uL (1.2-3.4); Lymphocytes % (auto) 22.4 %; Mean Corpuscular Hemoglobin 35.1 pg (25-34); Mean Corpuscular Hgb Conc 33.4 g/dL (32-36); Mean Platelet Volume 10.7 fL (7.4-10.4); Monocytes # (auto) 0.58 K/uL (0.11-0.59); Monocytes % (auto) 7.9 %; Neutrophils # (auto) 5.08 K/uL (1.4-6.5); Neutrophils % (auto) 68.9 %; Platelet Count 124 K/uL (130-400); RDW Coefficient of Variation 14.6 % (11.5-14.5); Red Blood Count 4.16 M/uL (4.7-6.1); White Blood Count 7.37 K/uL (4.8-10.8)
[2021-10-30 08:33] LABS: BUN Creatinine Ratio 29.5 (10-20); Calcium 8.8 mg/dl (8.5-10.1); Creatinine Clr Calc Pharmacy 79.6 ml/min; Est GFR (African American) 98.8 ml/min; Est GFR (Non-African American) 85.2 ml/min; Potassium 3.7 mmol/L (3.5-5.1)
[2021-10-30] MEDS: FAMOTIDINE 20 MG TAB PO SCH (08:58)
[2021-10-30] MEDS: ASPIRIN 81 MG ECTAB PO SCH (08:58)
[2021-10-30] MEDS: ATORVASTATIN 40 MG TAB PO SCH (08:59)
[2021-10-30] MEDS: CLOPIDOGREL BISULFATE 75 MG TAB PO SCH (08:59)
[2021-10-30] MEDS: FUROSEMIDE 20 MG TAB PO SCH (08:59)
[2021-10-30] MEDS: UMECLIDINIUM/VILANTEROL 62.5/25MCG 7 PUFFS/INHALER INH SCH (08:59)
[2021-10-30] MEDS: methylPREDNISolone 40 MG in SYRINGE 0 ML IV SCH (08:59)
--- NOTE | 2021-10-30 15:53 | Hospitalist Progress Note ---
Date of Service October 30, 2021 Assessment & Plan (1) Acute on chronic respiratory failure with hypoxia: Plan: Most likely due to worsening Pulmonary hypertension and COPD, no wheeze on exam w/ suspected PVD, forehead O2 readings higher than peripheral -Solu-Medrol 60 mg IV Q12h --> 40 q12h --> daily. If continuing to downtrend oxygen, to every other day 10/31 then discontinue Pulm on board, appreciate recs. Started on sildenafil for pulmonary hypertension, did not feel any benefit from this and has since been discontinued - Continue DuoNebs -Mucinex BID prn, patient currently not with cough productive of sputum. -Continue home inhalers. -SpO2 goal 88-92%, high flow with wean as able - Cr 0.88 - Continue diuresis w/ Lasix 20mg qAM - Net 741 out/24hrs - severe PAH functional class IV (patient with inability to perform minimal activities, dyspnea at rest and significantly worsened with any activity). Suspected class II/III pulmonary hypertension with underlying emphysema and left heart disease. Last echo with mod concentric LVH. COPD class D. Last PFTs 02/2021 moderate COPD with emphysema, FVC 78%, FEV1 68%, FEV1/FVC 66%, TLC 76%, DLCO 31% Did discuss with [facility] pulmonary hypertension team/pulmonologyto consider right heart cath and potential IV prostanoids. On review they did not feel he was a candidate for transfer or outpatient follow-up at this time. Did review with patient, he had independently felt that even if this had been an option he would have declined as he did not want to be away from [place]. Reports he would not want transfer even as far as [place], even if additional care options were available to him as his family is unable to travel and he would rather be back at the [facility] and comfortable then pursue additional care options out of town. At this time he is clinically improving, and will continue to titrate oxygen hopefully with a goal of discharge at 10 L or less. (2) Adenocarcinoma of lung: Plan: -Diagnosed in June 2021, not a surgical candidate, completed radiation treatment last month. -PET positive left upper lobe 1.6 cm x 1 cm-->Increased in size to 2.2cm 08/2021, slightly decreased in size since completing radiation. Not a surgical candidate due to severe reduction in DLCO (3) Elevated troponin: Plan: -most likely due to demand ischemia -Without chest pain/tightness, palpitations and no new EKG changes -EKG without acute ST segment changes, repeat EKG as needed High-sensitivity troponin mildly elevated, down trended (4) Chronic obstructive pulmonary disease: Plan: -As above with acute exacerbation of COPD. -Treatment as above. -Continue home maintenance inhaler. (5) Severe pulmonary hypertension: Plan: -Follows with pulmonology. -2D echo 01/22/2021:EF 70%,grade 1 diastolic dysfunction, severe pulmonary hypertension, RVSP 84, moderate right ventricular hypertrophy, moderately reduced RV function -Right heart cath not feasible due to current condition and O2 requirements. -Dr. Wang as outpatient prescribed sildenafil 5mg TID on 09/10, however insurance denied this, patient has not been taking. This was resumed on inpatient as above 10/25. Pt did not experience benefit, subsequently discontinued. (6) Essential tremor: Plan: -Right hand, not new. -No medications for this currently. (7) GERD (gastroesophageal reflux disease): Plan: -Chronic, stable. -Continue Pepcid 20 mg daily. (8) Hyperlipidemia: Plan: -Chronic, stable. -Continue atorvastatin. (9) BPH (benign prostatic hyperplasia): Plan: -No current medications for this. (10) Carotid stenosis: Plan: -Near complete occlusion of LICA. -Asymptomatic, continue ASA, Plavix. (11) Aortic aneurysm: Plan: -3.9 x 3.8 cm infrarenal AAA -Follow-up as an outpatient. (12) Bilateral lower extremity edema: Plan: -Mild-moderate, has been present for several week, no on a diuretic at home. -Received 40 IV Lasix today in ED. continued on Lasix as above Admission and Anticipated Discharge Date Admission Date: October 24, 2021 Subjective Jun is seen at the bedside in the morning and on reevaluation in the afternoon. He reports he continues to be short of breath with any exertion, but the shortness of breath has improved at rest. Still has difficulty laying flat. Has improved 12 L high flow today. Initially had reached out to [facility] and pulmonary hypertension clinics to consider right heart cath and potential IV prostanoids. Did discuss case with [facility], they did not feel he was a candidate for transfer or outpatient follow-up at this time. Did review with patient, he had independently felt that even if this had been an option he would have declined as he did not want to be away from [place]. Reports he would not want transfer even as far as [place], even if additional care options were available to him as his family is unable to travel and he would rather be back at the [facility] and comfortable then pursue additional care options out of town. At this time he is clinically improving, and will continue to titrate oxygen hopefully with a goal of discharge at 10 L or less. Denies fever, chills, chest pain at time of visit. Review of Systems Review of Systems: All systems reviewed & are unremarkable except as noted in Subjective Physical Exam Physical Exam: General: A&Ox3. NAD. Cooperative. On 12 L oxygen/high flow HEENT: Atraumatic, normocephalic. Vision/hearing grossly intact. Pulm: Globally diminished. No wheezes or rales, normal resolution of trace bibasilar crackles. Symmetrical chest rise. Cardiac: RRR, -mrg. Radial pulses intact and symmetrical. Abdominal: Nontender, nondistended, soft. BS present. Results & Data Results & Data ([facility]) Vital Signs (Past 12 Hours) Vital Signs Temp Pulse Pulse Resp BP Pulse Ox 10/30/21 14:43 72 18 92 10/30/21 12:28 36.3 C L 87 19 148/82 H 87 L 10/30/21 11:16 69 18 96 10/30/21 08:07 36.6 C 76 20 121/74 91 10/30/21 07:40 69 10/30/21 07:25 67 20 93 10/30/21 05:17 66 19 94 PG Care Time/CCT Total # of Minutes Spent Total Time Spent with Patient: Total time spent is greater than 50% in coordination of care (as documented) at patient's floor/unit and/or counseling patient: Coding Level of Care Code 45987 Subseq Hosp Care Lvl 3 Diagnoses Acute on chronic respiratory failure with hypoxia J96.21 Adenocarcinoma of lung C34.90 Elevated troponin R77.8 Chronic obstructive pulmonary disease J44.9 Severe pulmonary hypertension I27.20 Essential tremor G25.0 GERD (gastroesophageal reflux disease) K21.9 Hyperlipidemia E78.5 BPH (benign prostatic hyperplasia) N40.0 Carotid stenosis I65.29 Aortic aneurysm I71.9 Bilateral lower extremity edema R60.0
[2021-10-30] MEDS: ENOXAPARIN INJ 40 MG/0.4 ML SYR SQ SCH (18:11)
[2021-10-31] MEDS: ALBUT/IPRATROP 3MG/0.5MG NEB 3 ML VIAL INH SCH ×3 (00:01→12:34)
[2021-10-31] MEDS: BUDESONIDE 0.25 MG/2 ML VIAL (PULMICORT) INH SCH (07:12)
[2021-10-31 07:31] LABS: BUN Creatinine Ratio 28.3 (10-20); Calcium 8.6 mg/dl (8.5-10.1); Creatinine Clr Calc Pharmacy 70.8 ml/min; Est GFR (African American) 87.2 ml/min; Est GFR (Non-African American) 75.2 ml/min; Potassium 3.7 mmol/L (3.5-5.1)
[2021-10-31] MEDS: CLOPIDOGREL BISULFATE 75 MG TAB PO SCH (08:45)
[2021-10-31] MEDS: FAMOTIDINE 20 MG TAB PO SCH (08:45)
[2021-10-31] MEDS: ATORVASTATIN 40 MG TAB PO SCH (08:45)
[2021-10-31] MEDS: ASPIRIN 81 MG ECTAB PO SCH (08:45)
[2021-10-31] MEDS: FUROSEMIDE 20 MG TAB PO SCH (08:46)
[2021-10-31] MEDS: methylPREDNISolone 40 MG in SYRINGE 0 ML IV SCH (08:46)
[2021-10-31] MEDS: UMECLIDINIUM/VILANTEROL 62.5/25MCG 7 PUFFS/INHALER INH SCH (08:46)
--- NOTE | 2021-10-31 08:53 | Hospitalist Progress Note ---
Date of Service October 31, 2021 Assessment & Plan (1) Acute on chronic respiratory failure with hypoxia: Plan: Most likely due to worsening Pulmonary hypertension and COPD, no wheeze on exam w/ suspected PVD, forehead O2 readings higher than peripheral -Solu-Medrol 60 mg IV Q12h --> 40 q12h --> daily. If continuing to downtrend oxygen, to every other day 10/31 then discontinue Pulm sees as out pt , appreciate recs. Started on sildenafil for pulmonary hypertension, did not feel any benefit from this and has since been discontinued - -Mucinex BID prn, patient currently not with cough productive of sputum. -Continue home inhalers. -SpO2 goal 88-92%, high flow with wean as able - Cr 0.88 - Continue diuresis w/ Lasix increased to 40 mg q am - - severe PAH functional class IV (patient with inability to perform minimal activities, dyspnea at rest and significantly worsened with any activity). Suspected class II/III pulmonary hypertension with underlying emphysema and left heart disease. Last echo with mod concentric LVH. COPD class D. Last PFTs 02/2021 moderate COPD with emphysema, FVC 78%, FEV1 68%, FEV1/FVC 66%, TLC 76%, DLCO 31% Previous hospitalist Dr Saini did discuss with [place] pulmonary hypertension team/pulmonology consider right heart cath and potential IV prostanoids. On review they did not feel he was a candidate for transfer or outpatient follow-up at this time. Did review with patient, he had independently felt that even if this had been an option he would have declined as he did not want to be away from [place]. These wishes were reconfirmed 10/31/21 . At this time he is clinically improving, and will continue to titrate oxygen hopefully with a goal of discharge at 10 L or less. he wants to be transferred to [facility] and [place]. (2) Adenocarcinoma of lung: Plan: -Diagnosed in June 2021, not a surgical candidate, completed radiation treatment last month. -PET positive left upper lobe 1.6 cm x 1 cm-->Increased in size to 2.2cm 08/2021, slightly decreased in size since completing radiation. Not a surgical candidate due to severe reduction in DLCO (3) Elevated troponin: Plan: -most likely due to demand ischemia -Without chest pain/tightness, palpitations and no new EKG changes -EKG without acute ST segment changes, repeat EKG as needed High-sensitivity troponin mildly elevated, down trended (4) Chronic obstructive pulmonary disease: Plan: -As above with acute exacerbation of COPD. -Treatment as above. -Continue home maintenance inhaler. (5) Severe pulmonary hypertension: Plan: -Follows with pulmonology. -2D echo 01/22/2021:EF 70%,grade 1 diastolic dysfunction, severe pulmonary hypertension, RVSP 84, moderate right ventricular hypertrophy, moderately r educed RV function -Right heart cath not feasible due to current condition and O2 requirements. -Dr. Wang as outpatient prescribed sildenafil 5mg TID on 09/10, however insurance denied this, patient has not been taking. This was resumed on inpatient as above 10/25. Pt did not experience benefit, subsequently discontinued. (6) Essential tremor: Plan: -Right hand, not new. -No medications for this currently. (7) GERD (gastroesophageal reflux disease): Plan: -Chronic, stable. -Continue Pepcid 20 mg daily. (8) Hyperlipidemia: Plan: -Chronic, stable. -Continue atorvastatin. (9) BPH (benign prostatic hyperplasia): Plan: -No current medications for this. (10) Carotid stenosis: Plan: -Near complete occlusion of LICA. -Asymptomatic, continue ASA, Plavix. (11) Aortic aneurysm: Plan: -3.9 x 3.8 cm infrarenal AAA -Follow-up as an outpatient. (12) Bilateral lower extremity edema: Plan: -Mild-moderate, has been present for several week, no on a diuretic at home. -Received 40 IV Lasix today in ED. continued on Lasix as above Admission and Anticipated Discharge Date Admission Date: October 24, 2021 Subjective Pt is encouraged and feeling better, oxygen is decreasing. We discussed possibilities of treatment of pulmonary hypertension, and he states he would rather treat conservatively here understanding the eventual outcome will be his decline and eventual Review of Systems Review of Systems: moderate respiratory distress and significant fatigue no headache, no visual changes no speech or swallowing issues no chest pain, pressure or palpitations persistent shortness of breath, no cough or wheezes no abdominal pain, nausea or vomiting, diarrhea or constipation no dysuria, hematuria or frequency no focal joint pain or swelling no back pain, CVA tenderness or radicular pain no bruising, bleeding or rashes no focal signs of weakness or numbness or altered sensation no complaints of anxiety or depression.. Results & Data Results & Data ([facility]) Vital Signs (Past 12 Hours) Vital Signs Temp Pulse Pulse Pulse Resp BP BP 10/31/21 07:38 97.7 F 70 22 134/79 10/31/21 07:13 72 20 10/31/21 04:00 98.1 F 76 16 125/75 10/31/21 00:01 75 19 10/30/21 23:42 76 10/30/21 22:59 98.2 F 78 20 120/65 Pulse Ox 10/31/21 07:38 90 10/31/21 07:13 95 10/31/21 04:00 100 10/31/21 00:01 97 10/30/21 23:42 10/30/21 22:59 98 PG Care Time/CCT Total # of Minutes Spent Total Time Spent with Patient: Total time spent is greater than 50% in coordination of care (as documented) at patient's floor/unit and/or counseling patient: Coding Level of Care Code 46477 Subseq Hosp Care Lvl 3 Diagnoses Acute on chronic respiratory failure with hypoxia J96.21 Adenocarcinoma of lung C34.90 Elevated troponin R77.8 Chronic obstructive pulmonary disease J44.9 Severe pulmonary hypertension I27.20 Essential tremor G25.0 GERD (gastroesophageal reflux disease) K21.9 Hyperlipidemia E78.5 BPH (benign prostatic hyperplasia) N40.0 Carotid stenosis I65.29 Aortic aneurysm I71.9 Bilateral lower extremity edema R60.0
--- NOTE | 2021-10-31 10:23 | XRay Report ---
XR chest 1V portable HISTORY: hypoxia COMPARISON: Chest 10/28/2021. FINDINGS: No pneumothorax. No pleural effusions. The cardiac silhouette remains borderline enlarged. No evidence for pulmonary edema. Emphysema with bibasilar interstitial thickening/densities persist. Suspicious irregular nodule within the left upper lobe is again noted. This is better appreciated on the recent chest CT. Trace bilateral pleural fusions. IMPRESSION: 1. Emphysema with bibasilar interstitial thickening/densities, unchanged. This may represent atelecta sis or an interstitial pneumonitis. 2. Redemonstration of the irregular nodule within the left upper lobe. 3. Trace bilateral pleural effusions. ACT 112: Negative or not required by law. Electronically signed by: Jabari Valdes M.D. 10/31/2021 10:21 AM
[2021-10-31] MEDS ORDERED: ALBUT/IPRATROP 3MG/0.5MG NEB 3 ML VIAL INH PRN (15:26)
[2021-10-31] MEDS: ENOXAPARIN INJ 40 MG/0.4 ML SYR SQ SCH (16:00)
[2021-10-31] MEDS ORDERED: FUROSEMIDE 20 MG TAB PO ONE (18:44)
[2021-11-01 07:26] LABS: BUN Creatinine Ratio 30.7 (10-20); Calcium 8.4 mg/dl (8.5-10.1); Creatinine Clr Calc Pharmacy 79.6 ml/min; Est GFR (African American) 98.8 ml/min; Est GFR (Non-African American) 85.2 ml/min; Magnesium 2.1 mg/dl (1.7-2.4); Potassium 3.7 mmol/L (3.5-5.1)
[2021-11-01 07:27] LABS: Hematocrit (blood only) 45.5 % (42-52); Hemoglobin 15.1 g/dL (14.0-18.0); Mean Corpuscular Hgb Conc 33.2 g/dL (32-36); Mean Corpuscular Volume 105.3 fL (80-100); Mean Platelet Volume 10.9 fL (7.4-10.4); Platelet Count 132 K/uL (130-400); RDW Coefficient of Variation 14.6 % (11.5-14.5); RDW Standard Deviation 56.8 fL (36.4-46.3); Red Blood Count 4.32 M/uL (4.7-6.1); White Blood Count 9.61 K/uL (4.8-10.8)
[2021-11-01] MEDS: methylPREDNISolone 40 MG in SYRINGE 0 ML IV SCH (07:42)
[2021-11-01] MEDS: UMECLIDINIUM/VILANTEROL 62.5/25MCG 7 PUFFS/INHALER INH SCH (07:42)
[2021-11-01] MEDS: CLOPIDOGREL BISULFATE 75 MG TAB PO SCH (07:43)
[2021-11-01] MEDS: FAMOTIDINE 20 MG TAB PO SCH (07:44)
[2021-11-01] MEDS: ASPIRIN 81 MG ECTAB PO SCH (07:44)
[2021-11-01] MEDS: ATORVASTATIN 40 MG TAB PO SCH (07:44)
[2021-11-01] MEDS ORDERED: FUROSEMIDE 40 MG TAB PO SCH (09:00)
[2021-11-01] MEDS ORDERED: FLUTICASONE FUROATE 100MCG 14 PUFFS/INHALER INH SCH (09:00)
[2021-11-01 12:15] VITALS: TEMP 97.5; O2SAT 88
[2021-11-01 14:27] VITALS: BP 125/75; PULSE 66
--- NOTE | 2021-11-01 15:36 | Discharge Summary ---
Date of Service November 01, 2021 Admission HPI Per Admitting Provider Mr. Manzanares is a 71-year-old male with a history of COPD with chronic bronchitis mixed obstructive and restrictive lung disease, adenocarcinoma of the L upper lobe, severe pulmonary hypertension, chronic respiratory failure with hypoxia on 7-9 L nasal cannula at home, ex-smoker, GERD, dyslipidemia, and BPH who presents to the ER with worsening shortness of breath over the past two days. He states he gets blood clots in his nose from wearing oxygen that cause him to become congested and struggle to breathe both at rest and is exacerbated moreso with activity. Shortnes of breatg has been gradually worsening over the past to days in the setting of b/l LE edema which he states has been his baseline for the past several weeks, as well as chills today in ED. Denies fevers at home, myalgias, weakness, fatigue, chest pain/tightness, palpitations, cough, wheezing, leg pain/redness, unilateral swelling, nausea, vomiting, abdominal pain, change to bowel or urination. No sick contacts at home, no recent travel, he is vaccinated against both COVID and influenza. In ED, SpO2 initially in 70-low 80s on 7L O2, now SpO2 in low 90s on oxymask at 15L. Hypertensive with SBP in 150s, otherwise VS wnl, stable. Labs significant for 51.8, 2-hour later reading is 49.2. BNP 71, Covid, influenza, RSV negative. CXR showed emphysema with mildly progressed bibasilar interstitial coarsening. Correlate clinically to exclude an infectious or inflammatory pneumonitis. Chest CTA negative for PE, did show slight interval decrease in left lobe nodule. Principal Diagnosis Acute on chronic respiratory failure with hypoxia Discharge Exam The patient appeared chronically ill Vital signs as documented. Lungs are fair air movement decreased at the bases Cardiac exam, Rhythm is regular.. No murmurs, rubs or gallops. Abdominal exam reveals normal bowel sounds, soft non tender, no masses Extremities are nonedematous and both pedal pulses are normal. Neurologic exam is alert and oriented, no focal loss of strength or sensation Skin is with various stage bruises Psychologically is without concerns for anxiety or depression. Discharge Data Allergies Allergy/AdvReac Type Severity Reaction Status Date / Time No Known Allergies Allergy Verified 09/17/21 14:03 Consultations 10/24/21 12:19 ED Decision to Admit Stat 10/24/21 15:33 Consult Pulmonology Routine Ordered Studies 10/24/21 10:12 CT angio chest PE protocol Stat Hospital Course (1) Acute on chronic respiratory failure with hypoxia: Most likely due to worsening Pulmonary hypertension and COPD, Completed steroid taper in the hospital Pulm sees as out pt , appreciate recs. Started on sildenafil for pulmonary hypertension, did not feel any benefit from this and has since been discontinued - -Oxygen supplementation was increased to 10 L -Continue home inhalers. -SpO2 goal 88-92%, high flow with wean as able - Continue diuresis w/ Lasix increased to 40 mg q am creatinine has been stable - severe PAH functional class IV (patient with inability to perform minimal activities, dyspnea at rest and significantly worsened with any activity). Suspected class II/III pulmonary hypertension with underlying emphysema and left heart disease. Last echo with mod concentric LVH. COPD class D. Last PFTs 02/2021 moderate COPD with emphysema, FVC 78%, FEV1 68%, FEV1/FVC 66%, TLC 76%, DLCO 31% Previous hospitalist Dr Saini did discuss with [place] pulmonary hypertension team/pulmonology consider right heart cath and potential IV prostanoids. On review they did not feel he was a candidate for transfer or outpatient follow-up at this time. Did review with patient, he had independently felt that even if this had been an option he would have declined as he did not want to be away from [place]. These wishes were reconfirmed 10/31/21 . At this time he is clinically improving, and will continue to titrate oxygen hopefully with a goal of discharge at 10 L or less. he wants to be transferred to [facility] and [place]. (2) Adenocarcinoma of lung: -Diagnosed in June 2021, not a surgical candidate, completed radiation treatment last month. -PET positive left upper lobe 1.6 cm x 1 cm-->Increased in size to 2.2cm 08/2021, slightly decreased in size since completing radiation. Not a surgical candidate due to severe reduction in DLCO (3) Elevated troponin: -most likely due to demand ischemia -Without chest pain/tightness, palpitations and no new EKG changes -EKG without acute ST segment changes, repeat EKG as needed High-sensitivity troponin mildly elevated, down trended (4) Chronic obstructive pulmonary disease: -As above with acute exacerbation of COPD. -Treatment as above. -Continue home maintenance inhaler. (5) Severe pulmonary hypertension: -Follows with pulmonology. -2D echo 01/22/2021:EF 70%,grade 1 diastolic dysfunction, severe pulmonary hypertension, RVSP 84, moderate right ventricular hypertrophy, moderately reduced RV function -Right heart cath not feasible due to current condition and O2 requirements. -Dr. Wang as outpatient prescribed sildenafil 5mg TID on 09/10, however insurance denied this, patient has not been taking. This was resumed on inpatient as above 10/25. Pt did not experience benefit, subsequently discontinued. (6) Essential tremor: -Right hand, not new. -No medications for this currently. (7) GERD (gastroesophageal reflux disease): -Chronic, stable. -Continue Pepcid 20 mg daily. (8) Hyperlipidemia: -Chronic, stable. -Continue atorvastatin. (9) BPH (benign prostatic hyperplasia): -No current medications for this. (10) Carotid stenosis: -Near complete occlusion of LICA. -Asymptomatic, continue ASA, Plavix. (11) Aortic aneurysm: -3.9 x 3.8 cm infrarenal AAA -Follow-up as an outpatient. (12) Bilateral lower extremity edema: -This is improved following hospital stay we will continue on Lasix 40 mg a day Total Time Total Time Spent Total Time Spent (In Minutes): It required greater than 30 minutes to prepare this patient for discharge Discharge Plan Discharge Items Patient Disposition: Transfer [facility] Reason For Visit: ACUTE ON CHRONIC RESPIRATORY FAILURE Discharge Diagnosis: Acute on chronic respiratory failure with hypoxia, secondary to multiple issues including COPD radiation to lung and lung cancer along with pulmonary hypertension Condition on Discharge: Fair Activity: Per Instructions section Activity Comment: Slow gradual movements avoid overexertion Non-emergency contact: Primary Care Provider Call non-emergency contact if: your symptoms worsen Follow-up/Referrals: Renuka Ortega [Primary Care Provider] - Diet: Low Sodium (2gm) Addtl Attending Provider Instructions: Please avoid overexertion Continue to take diuretic medication to reduce overall blood volume and then overall pulmonary hypertension Continue to wear oxygen, try the mask to give your nostrils a break. use saline nasal spray, and may use a water based lubricant, such as [place] on a q tip into your nose two to three times a day to keep your nose moist and avoid nose bleeds. if you nose rebleeds, please consider ENT referral, but acutely may use afrin nasal spray instructions for afrin, if nose bleeds blow nose one time to clear clots, use two large sprays of afrin in each nostril, and hold pressure to clamp nose for 10 minutes, during this time use mask or blow by oxygen Pending Studies at Discharge: Yes Stand-Alone Forms: My [facility] Skilled Items Patient informed of condition?: Yes DNR: Yes Discharge Level of Care: Skilled Communicable Disease: No Discharge Prognosis: Stable Lines: None Urinary Catheter: No Medications and DC Order Prescriptions: New furosemide 40 mg Tablet 40 mg PO QAM Qty: 30 RF: 0 oxymetazoline [Nasal [place] (oxymetazoline)] 0.05 % [place],Non-Aerosol 1 spray NA Q12H PRN (Reason: nasal congestion) Qty: 1 RF: 0 Saline Mist 0.65 % Aerosol,[place] 2 spray NA Q8H PRN (Reason: dry nasal passages) Qty: 1 RF: 0 (DME) Oxygen Home Liters Per Minute See Rx Instructions .Route Qty: 10 RF: 0 Continued Stiolto Respimat 2.5-2.5 mcg/actuation mist 2 puff inhalation DAILY Qty: 3 RF: 1 budesonide 0.25 mg/2 mL suspension for nebulization 0.25 mg inhalation BID PRN (Reason: Shortness Of Breath) Qty: 60 RF: 6 (DME) nebulizers Misc See Rx Instructions .Route Qty: 1 RF: 0 famotidine 20 mg tablet 20 mg PO QAM RF: 0 clopidogrel 75 mg tablet 75 mg PO QAM RF: 0 albuterol sulfate 90 mcg/actuation HFA aerosol inhaler 2 puff inhalation Q6H PRN (Reason: Shortness Of Breath Or Wheezing) Qty: 18 RF: 3 ipratropium-albuterol 0.5 mg-3 mg(2.5 mg base)/3 mL solution for nebulization 3 ml inhalation Q8H PRN (Reason: shortness of breath or wheezing) Qty: 180 RF: 2 aspirin 81 mg Tablet,Delayed Release (Dr/Ec) 81 mg PO QAM RF: 0 Discontinued sildenafil (pulm.hypertension) 10 mg/mL suspension for reconstitution 5 mg PO TID Qty: 112 RF: 3 atorvastatin 40 mg Tablet 40 mg PO QAM RF: 0 Discharge Orders: Discharge Order (Routine); Ordered 11/01/21 Ordered By: Steven Calhoun Admission Data Admit Date/Time: 10/24/21 12:54 Attending Provider: Steven Calhoun Admit Provider: Ruel Bello [facility] Other Providers: Andree Wang ; Ruel Bello ; [facility] ; [facility] Other Interventions: Discharge Summary Assessment (RN) Last Done: 11/01/21 14:26 Coding Level of Care Code D/C DAY MANAGEMENT >30 MINS Diagnoses Acute on chronic respiratory failure with hypoxia J96.21 Adenocarcinoma of lung C34.90 Elevated troponin R77.8 Chronic obstructive pulmonary disease J44.9 Severe pulmonary hypertension I27.20 Essential tremor G25.0 GERD (gastroesophageal reflux disease) K21.9 Hyperlipidemia E78.5 BPH (benign prostatic hyperplasia) N40.0 Carotid stenosis I65.29 Aortic aneurysm I71.9 Bilateral lower extremity edema R60.0
== END 2021-11-01 14:42 | DRG 189 ==
LOC: ED 09:13 → SUATTDRO 12:54 → 2S 12:54

== ENCOUNTER 2021-11-19 01:00 | Inpatient (IN) ==
[2021-11-19] MEDS ORDERED: ALBUT/IPRATROP 3MG/0.5MG NEB 3 ML VIAL ONE (01:05)
[2021-11-19] MEDS ORDERED: methylPREDNISolone 125 MG/2 ML VIAL IV STA (01:06)
[2021-11-19] MEDS ORDERED: ALBUT/IPRATROP 3MG/0.5MG NEB 3 ML VIAL INH STA (01:06)
[2021-11-19] MEDS ORDERED: LORazepam 2 MG/1 ML VIAL ONE (01:06)
--- NOTE | 2021-11-19 01:10 | Emergency Department Note ---
Impression & Plan Hypoxia DC ED Provider Note HPI: The patient is a 71-year-old gentleman with history of COPD, history of lung cancer, chronic respiratory failure on home oxygen at 7 to 9 L, presents the emergency department via EMS for shortness of breath. Patient was hypoxic in the 80s in the field and was placed on CPAP. On arrival here to the ED the patient's oxygenation is improved now switched to BiPAP at 95% on noninvasive positive pressure ventilation. Patient is alert, he is very agitated, states later he does not want positive pressure ventilation to be performed. Patient also confirms that he is DNR/DNI CODE STATUS. He was therefore switched to a nonrebreather mask. Denies any chest pain, denies any nausea or vomiting, denies any recent fevers although EMS reports that there have been multiple individuals in the patient's independent living apartment complex that have recently tested positive for COVID. ROS: -Pulmonary: Respiratory distress *10 point review systems was conducted and is otherwise negative unless stated above *Outpatient medications and allergy history reviewed PE: General: Frail-appearing, respiratory distress HEENT: Normocephalic, atraumatic Eyes: Extraocular eye movement is intact, no scleral erythema Pulmonary: Diminished air movement bilaterally without crackles or wheezing Cardio: Regular rate and rhythm GI: Abdomen is soft, nontender : No suprapubic tenderness MSK: No evidence of trauma or malformation of the extremities, no edema Skin: No evidence of rash Neuro: Alert, no focal deficits Psychiatric: Anxious appearing security monitor: - An order was placed for continuous cardiac monitoring - Patient was noted to be in sinus rhythm with rate of 90 EKG: Rate: 112 Rhythm: Sinus tachycardia Intervals: Within normal limits ST changes: No ST elevation Time: 0106 Medical Decision Making: Patient presented to the emergency department with a chief complaint shortness of breath. He does have extensive pulmonary history, is noted to have severe COPD with oxygen requirements at home ranging from 7 to 9 L. On arrival to the ED the patient is on CPAP but he is very anxious, states he would like to have it removed, he was transiently put on BiPAP but he did not tolerate this and was very adamant that he wanted the BiPAP mask removed therefore he was placed on a nonrebreather mask. Following episodes of hypoxia at 83% on nonrebreather, decision was made following discussion with respiratory to try high flow nasal cannula oxygen which the patient actually was able to tolerate with some impro vement in his saturations to 93%. Here in the ED IV was established, lab work obtained, patient was maintained on environmental monitoring technician, lab work does not show any evidence of leukocytosis. Chest x- ray does not show any evidence of pneumonia. EKG does not show any ischemic changes. Patient denies any chest pain. High-sensitivity troponin level is elevated in the 80s, suspect this is demand ischemia the patient denies any chest pain and EKG is reassuring. COVID-19 testing is negative. Patient was given multiple DuoNeb breathing treatments as well as IV Solu-Medrol here in the ED for suspected COPD exacerbation as a source of his respiratory failure. He has remained improved on high flow nasal cannula oxygen at 40 L with 80% FiO2 with oxygen saturations at about 93%. Patient is adamant that he does not want any intubation, he does not want any noninvasive positive pressure ventilation m ask to be placed even if his respiratory status worsens. I discussed the above findings with the on-call hospitalist, Dr. Patterson, and the patient was accepted to a telemetry bed for further management of acute on chronic respiratory failure. Critical care time: 45 minutes -Management of acute respiratory failure with hypoxia, oxygen saturations less than 90% on nonrebreather mask requiring high flow nasal cannula for stabilization, interpretation of diagnostic studies, time spent at the bedside, discussion with other physicians and arrangement of admission Diagnosis: 1. Acute on chronic respiratory failure with hypoxia 2. Elevated high-sensitivity troponin 3. COPD exacerbation, severe 4. 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 per 03/13/21 carotid doppler > reason for plavix per pt Chronic bronchitis Chronic obstructive pulmonary disease Chronic respiratory failure with hypoxia COPD with emphysema Essential tremor Right hand Ex-smoker Exertional shortness of breath GERD (gastroesophageal reflux disease) Hiatal hernia History of colon polyps History of migraine Hx of skin cancer, basal cell Hyperlipidemia Hypersomnia Jaw clicking No locking Lung nodule Reason for upcoming bronchoscopy Mixed restrictive and obstructive lung disease On home oxygen therapy 4L O2 continuous Palliative care encounter Pulmonary hypertension Severe pulmonary hypertension Per 01/2021 echo, RVSP 84mmhg Urinary incontinence Surgical History History of cataract surgery Right History of colonoscopy History of esophagogastroduodenoscopy (EGD) History of tooth extraction Family History Mother Family history of diabetes mellitus Grandmother No problems noted. 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: No Beliefs That Will Affect Care: None marital status: Current Living Situation: Spouse Current Living Situation Comment: Longterm community current occupational status: retired Feels Safe at Home: Yes caffeine: Yes Physical Activity Frequency: 3-4 Times per Week Physical Activity Frequency Comment: Treadmill walks Assistive Devices: Oxygen - Continuous Allergies Allergies Allergy/AdvReac Type Severity Reaction Status Date / Time No Known Allergies Allergy Verified 11/19/21 02:12 Home Meds Home Medications Medication Instructions Recorded Confirmed aspirin 81 mg tablet,delayed 81 mg PO QAM 05/26/18 11/19/21 release clopidogrel 75 mg tablet 75 mg PO QAM 11/30/20 11/19/21 famotidine 20 mg tablet 20 mg PO QAM 11/30/20 11/19/21 atorvastatin 40 mg tablet 40 mg PO DAILY 11/19/21 11/19/21 Previous Rx's Medication Instructions Recorded tiotropium 2.5 mcg-olodaterol 2.5 2 puff INHALATION DAILY #3 inhaler 01/09/21 mcg/actuation mist for inhalation (Stiolto Respimat) albuterol sulfate 90 mcg/actuation 2 puff INHALATION Q6H PRN #18 g 09/10/21 aerosol inhaler budesonide 0.25 mg/2 mL suspension 0.25 mg INHALATION BID PRN #60 ml 09/10/21 for nebulization ipratropium 0.5 mg-albuterol 3 mg 3 ml INHALATION Q8H PRN #180 ml 09/10/21 (2.5 mg base)/3 mL nebulization soln nebulizers #1 ea 10/11/21 Oxygen Home #10 l 11/01/21 furosemide 40 mg tablet 40 mg PO QAM #30 tab 11/01/21 oxymetazoline 0.05 % nasal spray 1 spray NA Q12H PRN #1 btl 11/01/21 (Nasal Angle Inlet (oxymetazoline)) sodium chloride 0.65 % nasal spray 2 spray NA Q8H PRN #1 btl 11/01/21 aerosol (Saline Mist) Results & Data (ED) Vital Signs Vital Signs - 24 hr 11/19/21 01:03 11/19/21 01:13 11/19/21 01:15 Temperature 37 C Temperature Source Rectal Pulse Rate 97 H Pulse Rate [Right Finger] Respiratory Rate 28 H Respiratory Effort / Characteristics Spontaneous Labored Respiratory Depth Shallow Respiratory Pattern Tachypnea Blood Pressure 152/103 H Blood Pressure [Left Arm] Blood Pressure Mean 119 Blood Pressure Mean [Left Arm] Blood Pressure Position Sitting Pulse Oximetry 85 L 85 L Oxygen Delivery Method Room Air Nasal Cannula Oxygen Flow Rate 15 15 Fraction of Inspired Oxygen SaO2/FiO2 Ratio Sepsis Recent Fever Within 48 Hours No Sepsis New/Unexplained Change in Mental Status N/A Sepsis Action Taken by Nursing No Action Required Pulse Oximetry Post Tiitration 92 11/19/21 01:26 11/19/21 01:29 11/19/21 01:35 Temperature Temperature Source Pulse Rate Pulse Rate [Right Finger] 93 H Respiratory Rate 30 H 26 H Respiratory Effort / Characteristics Spontaneous Labored Spontaneous Labored Respiratory Depth Shallow Deep Respiratory Pattern Tachypnea Tachypnea Blood Pressure Blood Pressure [Left Arm] 135/78 Blood Pressure Mean Blood Pressure Mean [Left Arm] 97 Blood Pressure Position Pulse Oximetry 93 95 Oxygen Delivery Method Nasal Cannula Nasal Cannula Oxygen Flow Rate 40 Fraction of Inspired Oxygen 100 SaO2/FiO2 Ratio 95 Sepsis Recent Fever Within 48 Hours Sepsis New/Unexplained Change in Mental Status Sepsis Action Taken by Nursing Pulse Oximetry Post Tiitration 11/19/21 01:43 Temperature Temperature Source Pulse Rate Pulse Rate [Right Finger] 91 H Respiratory Rate 22 Respiratory Effort / Characteristics Non-Labored Spontaneous Respiratory Depth Respiratory Pattern Blood Pressure Blood Pressure [Left Arm] Blood Pressure Mean Blood Pressure Mean [Left Arm] Blood Pressure Position Pulse Oximetry 93 Oxygen Delivery Method High Flow Nasal Cannula Oxygen Flow Rate 40 Fraction of Inspired Oxygen 80 SaO2/FiO2 Ratio Sepsis Recent Fever Within 48 Hours Sepsis New/Unexplained Change in Mental Status Sepsis Action Taken by Nursing Pulse Oximetry Post Tiitration Laboratory Data Result diagrams: 11/19/21 01:11 11/19/21 01:11 Lab Results 11/19/21 11/19/21 11/19/21 Range/Units 01:11 01:11 01:11 WBC 7.87 (4.8-10.8) K/uL RBC 4.22 L (4.7-6.1) M/uL Hgb 14.6 (14.0-18.0) g/dL Hct 44.5 (42-52) % MCV 105.5 H (80-100) fL MCH 34.6 H (25-34) pg MCHC 32.8 (32-36) g/dL RDW Std Deviation 54.2 H (36.4-46.3) fL RDW Coeff of Megan 14.1 (11.5-14.5) % Plt Count 259 (130-400) K/uL MPV 9.6 (7.4-10.4) fL Neutrophils % (Manual) 39.4 % Lymphocytes % (Manual) 21.9 % Monocytes % (Manual) 8.8 % Eosinophils % (Manual) 8.8 % Basophils % (Manual) 1.8 % Myelocytes % (Man) 0.9 % Neutrophils # (Manual) 3.10 (1.4-6.5) K/uL Total Absolute Neuts 3.10 (1.4-6.5) K/uL Lymphocytes # (Manual) 1.72 (1.2-3.4) K/uL Total Abs Lymphocytes 3.17 (1.2-3.4) K/uL Monocytes # (Manual) 0.69 H (0.11-0.59) K/uL Eosinophils # (Manual) 0.69 H (0-0.5) K/uL Basophils # (Manual) 0.14 (0-0.2) K/uL Myelocytes # (Manual) 0.07 H (0-0) K/uL Large Granular Lymphs 18.4 % # Lrg Granular Lymphs 1.45 K/uL PT 11.2 (9.0-12.0) Seconds INR 1.1 (0.9-1.1) APTT 21.7 (21.0-31.0) Seconds PTT Ratio 0.8 VBG pH (7.36-7.41) VBG pCO2 (38-50) mmHg VBG pO2 mmHg VBG HCO3 mmol/L VBG O2 Saturation % VBG Base Excess mEq/L Barometric Pressure mm/Hg Sodium (136-145) mmol/L Potassium (3.5-5.1) mmol/L Chloride (98-107) mmol/L Carbon Dioxide (21-32) mmol/L Anion Gap (3-11) BUN (6-23) mg/dl Creatinine (0.6-1.4) mg/dl Est Cr Clr Drug Dosing ml/min Est GFR ( Amer) ml/min Est GFR (Non-Af Amer) ml/min BUN/Creatinine Ratio (10-20) Glucose (70-99(Fasting)) mg/dl Calcium (8.5-10.1) mg/dl Total Bilirubin (0.2-1.0) mg/dl AST (13-39) U/L ALT (7-52) U/L Alkaline Phosphatase (34-104) U/L Troponin I High Sens 89.9 H* D (0-20) pg/ml B-Natriuretic Peptide (0-100) pg/ml Total Protein (6.0-8.3) gm/dl Albumin (3.4-5.0) gm/dl Globulin (2.5-4.0) gm/dl Albumin/Globulin Ratio (0.9-2) SARS-CoV-2 (PCR) (Negative) Influenza Type A (PCR) (Neg) Influenza Type B (PCR) (Neg) RSV (RT-PCR) (Neg) 11/19/21 11/19/21 11/19/21 Range/Units 01:11 01:19 01:29 WBC (4.8-10.8) K/uL RBC (4.7-6.1) M/uL Hgb (14.0-18.0) g/dL Hct (42-52) % MCV (80-100) fL MCH (25-34) pg MCHC (32-36) g/dL RDW Std Deviation (36.4-46.3) fL RDW Coeff of Megan (11.5-14.5) % Plt Count (130-400) K/uL MPV (7.4-10.4) fL Neutrophils % (Manual) % Lymphocytes % (Manual) % Monocytes % (Manual) % Eosinophils % (Manual) % Basophils % (Manual) % Myelocytes % (Man) % Neutrophils # (Manual) (1.4-6.5) K/uL Total Absolute Neuts (1.4-6.5) K/uL Lymphocytes # (Manual) (1.2-3.4) K/uL Total Abs Lymphocytes (1.2-3.4) K/uL Monocytes # (Manual) (0.11-0.59) K/uL Eosinophils # (Manual) (0-0.5) K/uL Basophils # (Manual) (0-0.2) K/uL Myelocytes # (Manual) (0-0) K/uL Large Granular Lymphs % # Lrg Granular Lymphs K/uL PT (9.0-12.0) Seconds INR (0.9-1.1) APTT (21.0-31.0) Seconds PTT Ratio VBG pH (7.36-7.41) VBG pCO2 (38-50) mmHg VBG pO2 mmHg VBG HCO3 mmol/L VBG O2 Saturation % VBG Base Excess mEq/L Barometric Pressure mm/Hg Sodium 142 (136-145) mmol/L Potassium 4.0 (3.5-5.1) mmol/L Chloride 106 (98-107) mmol/L Carbon Dioxide 19 L (21-32) mmol/L Anion Gap 17 H (3-11) BUN 24 H (6-23) mg/dl Creatinine 1.18 (0.6-1.4) mg/dl Est Cr Clr Drug Dosing 57.2 ml/min Est GFR ( Amer) 70.5 ml/min Est GFR (Non-Af Amer) 60.9 ml/min BUN/Creatinine Ratio 20.3 H (10-20) Glucose 239 H (70-99(Fasting)) mg/dl Calcium 9.2 (8.5-10.1) mg/dl Total Bilirubin 1.0 (0.2-1.0) mg/dl AST 32 (13-39) U/L ALT 24 (7-52) U/L Alkaline Phosphatase 138 H (34-104) U/L Troponin I High Sens (0-20) pg/ml B-Natriuretic Peptide 796 H (0-100) pg/ml Total Protein 6.2 (6.0-8.3) gm/dl Albumin 3.8 (3.4-5.0) gm/dl Globulin 2.4 L (2.5-4.0) gm/dl Albumin/Globulin Ratio 1.6 (0.9-2) SARS-CoV-2 (PCR) NEGATIVE (Negative) Influenza Type A (PCR) Negative (Neg) Influenza Type B (PCR) Negative (Neg) RSV (RT-PCR) Negative (Neg) 11/19/21 Range/Units 01:29 WBC (4.8-10.8) K/uL RBC (4.7-6.1) M/uL Hgb (14.0-18.0) g/dL Hct (42-52) % MCV (80-100) fL MCH (25-34) pg MCHC (32-36) g/dL RDW Std Deviation (36.4-46.3) fL RDW Coeff of Megan (11.5-14.5) % Plt Count (130-400) K/uL MPV (7.4-10.4) fL Neutrophils % (Manual) % Lymphocytes % (Manual) % Monocytes % (Manual) % Eosinophils % (Manual) % Basophils % (Manual) % Myelocytes % (Man) % Neutrophils # (Manual) (1.4-6.5) K/uL Total Absolute Neuts (1.4-6.5) K/uL Lymphocytes # (Manual) (1.2-3.4) K/uL Total Abs Lymphocytes (1.2-3.4) K/uL Monocytes # (Manual) (0.11-0.59) K/uL Eosinophils # (Manual) (0-0.5) K/uL Basophils # (Manual) (0-0.2) K/uL Myelocytes # (Manual) (0-0) K/uL Large Granular Lymphs % # Lrg Granular Lymphs K/uL PT (9.0-12.0) Seconds INR (0.9-1.1) APTT (21.0-31.0) Seconds PTT Ratio VBG pH 7.33 L (7.36-7.41) VBG pCO2 41 (38-50) mmHg VBG pO2 28 mmHg VBG HCO3 21 mmol/L VBG O2 Saturation < 60.0 % VBG Base Excess -4.2 mEq/L Barometric Pressure 735.9 mm/Hg Sodium (136-145) mmol/L Potassium (3.5-5.1) mmol/L Chloride (98-107) mmol/L Carbon Dioxide (21-32) mmol/L Anion Gap (3-11) BUN (6-23) mg/dl Creatinine (0.6-1.4) mg/dl Est Cr Clr Drug Dosing ml/min Est GFR ( Amer) ml/min Est GFR (Non-Af Amer) ml/min BUN/Creatinine Ratio (10-20) Glucose (70-99(Fasting)) mg/dl Calcium (8.5-10.1) mg/dl Total Bilirubin (0.2-1.0) mg/dl AST (13-39) U/L ALT (7-52) U/L Alkaline Phosphatase (34-104) U/L Troponin I High Sens (0-20) pg/ml B-Natriuretic Peptide (0-100) pg/ml Total Protein (6.0-8.3) gm/dl Albumin (3.4-5.0) gm/dl Globulin (2.5-4.0) gm/dl Albumin/Globulin Ratio (0.9-2) SARS-CoV-2 (PCR) (Negative) Influenza Type A (PCR) (Neg) Influenza Type B (PCR) (Neg) RSV (RT-PCR) (Neg) Administered Medications Discontinued Medications Albuterol (Albut/Ipratrop 3mg/0.5mg Neb 3 Ml Vial) Confirm Administered Dose 3 ml .ROUTE .STK-MED ONE Stop: 11/19/21 01:06 Last Admin: 11/19/21 01:58 Dose: Not Given Documented by: [id number] Albuterol (Albut/Ipratrop 3mg/0.5mg Neb 3 Ml Vial) 3 ml INH NOW STA Stop: 11/19/21 01:07 Last Admin: 11/19/21 01:44 Dose: 3 ml Documented by: [id number] Lorazepam (Lorazepam 2 Mg/1 Ml Vial) Confirm Administered Dose 2 mg .ROUTE .STK- MED ONE Stop: 11/19/21 01:07 Last Admin: 11/19/21 01:14 Dose: 0.5 mg Documented by: [id number] Lorazepam (Lorazepam 2 Mg/1 Ml Vial) 0.5 mg IV NOW STA Stop: 11/19/21 01:24 Last Admin: 11/19/21 01:27 Dose: Not Given Documented by: [id number] Methylprednisolone (Methylprednisolone 125 Mg/2 Ml Vial) 125 mg IV NOW STA Stop: 11/19/21 01:07 Last Admin: 11/19/21 01:23 Dose: 125 mg Documented by: [id number] Discharge Plan Visit Data Chief Complaint: Shortness of Breath/Dyspnea ED Provider: Yuan Johnson Discharge Problem: Hypoxia Forms Stand Alone Forms: [facility] Prescriptions Prescriptions: No Action Stiolto Respimat 2.5-2.5 mcg/actuation mist 2 puff inhalation DAILY Qty: 3 RF: 1 budesonide 0.25 mg/2 mL suspension for nebulization 0.25 mg inhalation BID PRN (Reason: Shortness Of Breath) Qty: 60 RF: 6 (DME) nebulizers Misc See Rx Instructions .Route Qty: 1 RF: 0 famotidine 20 mg tablet 20 mg PO QAM RF: 0 clopidogrel 75 mg tablet 75 mg PO QAM RF: 0 albuterol sulfate 90 mcg/actuation HFA aerosol inhaler 2 puff inhalation Q6H PRN (Reason: Shortness Of Breath Or Wheezing) Qty: 18 RF: 3 ipratropium-albuterol 0.5 mg-3 mg(2.5 mg base)/3 mL solution for nebulization 3 ml inhalation Q8H PRN (Reason: shortness of breath or wheezing) Qty: 180 RF: 2 aspirin 81 mg Tablet,Delayed Release (Dr/Ec) 81 mg PO QAM RF: 0 furosemide 40 mg Tablet 40 mg PO QAM Qty: 30 RF: 0 oxymetazoline [Nasal Angle Inlet (oxymetazoline)] 0.05 % Angle [place]let,Non-Aerosol 1 spray NA Q12H PRN (Reason: nasal congestion) Qty: 1 RF: 0 Saline Mist 0.65 % Aerosol,Angle Inlet 2 spray NA Q8H PRN (Reason: dry nasal passages) Qty: 1 RF: 0 (DME) Oxygen Home Liters Per Minute See Rx Instructions .Route Qty: 10 RF: 0 atorvastatin 40 mg tablet 40 mg PO DAILY RF: 0 Referrals Referrals: Renuka Ortega [Primary Care Provider] -
[2021-11-19] MEDS ORDERED: LORazepam 2 MG/1 ML VIAL IV STA (01:23)
[2021-11-19 01:26] LABS: Hematocrit (blood only) 44.5 % (42-52); Hemoglobin 14.6 g/dL (14.0-18.0); Mean Corpuscular Hemoglobin 34.6 pg (25-34); Mean Corpuscular Hgb Conc 32.8 g/dL (32-36); Mean Corpuscular Volume 105.5 fL (80-100); Mean Platelet Volume 9.6 fL (7.4-10.4); Platelet Count 259 K/uL (130-400); RDW Coefficient of Variation 14.1 % (11.5-14.5); RDW Standard Deviation 54.2 fL (36.4-46.3); Red Blood Count 4.22 M/uL (4.7-6.1); White Blood Count 7.87 K/uL (4.8-10.8)
[2021-11-19 01:46] LABS: INR 1.1 (0.9-1.1); Partial Thromboplastin Ratio 0.8; Partial Thromboplastin Time 21.7 Seconds (21.0-31.0); Prothrombin Time 11.2 Seconds (9.0-12.0)
[2021-11-19 01:49] LABS: Base Excess VBG -4.2 mEq/L; HCO3 VBG 21 mmol/L; PCO2 VBG 41 mmHg (38-50); PO2 VBG 28 mmHg; pH VBG 7.33 (7.36-7.41)
[2021-11-19 02:00] LABS: Oxygen Saturation VBG < 60.0 %
[2021-11-19 02:00] LABS: Albumin Globulin Ratio 1.6 (0.9-2); Albumin Level 3.8 gm/dl (3.4-5.0); BUN Creatinine Ratio 20.3 (10-20); Calcium 9.2 mg/dl (8.5-10.1); Creatinine Clr Calc Pharmacy 57.2 ml/min; Est GFR (African American) 70.5 ml/min; Est GFR (Non-African American) 60.9 ml/min; Globulin 2.4 gm/dl (2.5-4.0); Total Protein 6.2 gm/dl (6.0-8.3)
[2021-11-19 02:03] LABS: Influenza A virus by PCR Negative (Neg); Influenza B virus by PCR Negative (Neg); RSV by PCR Negative (Neg); SARS CoV2 RNA(COVID-19) InHosp NEGATIVE (Negative)
[2021-11-19 02:13] LABS: ALC (manual) 3.17 K/uL (1.2-3.4); Basophils # (manual) 0.14 K/uL (0-0.2); Basophils % (manual) 1.8 %; Eosinophils # (manual) 0.69 K/uL (0-0.5); Eosinophils % (manual) 8.8 %; Large Granular Lymph # (manua 1.45 K/uL; Large Granular Lymph % (manual) 18.4 %; Lymphocytes # (manual) 1.72 K/uL (1.2-3.4); Lymphocytes % (manual) 21.9 %; Monocytes # (manual) 0.69 K/uL (0.11-0.59); Monocytes % (manual) 8.8 %; Myelocytes # (manual) 0.07 K/uL (0-0); Myelocytes % (manual) 0.9 %; Neutrophils % (manual) 39.4 %
[2021-11-19] MEDS ORDERED: ALBUT/IPRATROP 3MG/0.5MG NEB 3 ML VIAL NEB STA (02:16)
--- NOTE | 2021-11-19 02:40 | History & Physical Report ---
Date of Service November 19, 2021 Assessment & Plan (1) Hypoxia: Plan: 71yo male with history of chronic hypoxic respiratory failure on 7-9L of O2 at home presenting with acute hypoxia. Most likely secondary to being off O2 at home - worsening pulmonary hypertension and COPD exacerbation. Severe PAH functional class IV (patient with inability to perform minimal activities, dyspnea at rest and significantly worsened with any activity). Suspected class II/III pulmonary hypertension with underlying emphysema and left heart disease. Last echo with mod concentric LVH COPD class D. Last PFTs 02/2021 moderate COPD with emphysema, FVC 78%, FEV1 68%, FEV1/FVC 66%, TLC 76%, DLCO 31% -Continue supplemental O2 - wean as tolerated -Goal saturation 88-92% -DuoNeb q 4 -Albuterol q2 -Solumedrol 30mg IV TID -Azithromycin -Continue tiotropium/olodaterol or formulary equivalent -Flutter Valve -Incentive spirometry -Continue Lasix 40mg po qAM -Patient was recently transitioned to hospice care. He is DNR/DNI and does not wish to have CPAP or BiPAP placed -He follows with Pulmonary (2) Elevated troponin: Plan: HS Troponin elevation . Patient reports some chest tightness. No ischemic changes on EKG -Telemetry monitoring -Trend troponin -EKG as needed for chest pain -Continue ASA and Plavix (3) Mass of upper lobe of left lung: Plan: Adenocarcinoma of lung - Diagnosed in June 2021, not a surgical candidate, completed radiation treatment last month. PET positive left upper lobe 1.6 cm x 1 cm-->Increased in size to 2.2cm 08/2021, slightly decreased in size since completing radiation. -Not a surgical candidate due to severe reduction in DLCO -Hospice care (4) Hyperlipidemia: Plan: Chronic -Continue Atorvastatin (5) GERD (gastroesophageal reflux disease): Plan: Chronic. Stable -Continue Famotidine 20mg po daily (6) Carotid stenosis: Plan: Chronic. Near complete occlusion of LICA -Continue ASA and Plavix -Presently asymptomatic History of Present Illness Chief Complaint: SOB, acute on chronic hypoxic respiratory failure Primary Care Provider: [facility] Jun Maloney is a 71yo male with history of chronic hypoxic respiratory f ailure on 7-9L O2 continuous, COPD, adenocarcinoma of the lung, GERD presenting with acute hypoxic respiratory failure. Patient got up this evening to go to the bathroom and got caught up on his tubing for his concentrator. He was unable to fix it and began feeling more short of breath. EMS was called - he was saturating in the 80's - placed on CPAP en route, transitioned to BiPAP upon arrival which he did not tolerated. Placed on HFNC with adequate saturations. Presently on 40L/min, 60% FiO2 saturating 92%. He reports some chest tightness and wheeze. Otherwise no complaints. Specifically denies cough, palpitations, abdominal pain, nausea, vomiting, diarrhea, constipation. po additional complaints. ER Course: Albuterol, Ativan, Solumedrol Allergies Allergy/AdvReac Type Severity Reaction Status Date / Time No Known Allergies Allergy Verified 11/19/21 02:12 Home Medications Medication Instructions Recorded Confirmed Type aspirin 81 mg tablet,delayed 81 mg PO QAM 05/26/18 11/19/21 History release clopidogrel 75 mg tablet 75 mg PO QAM 11/30/20 11/19/21 History famotidine 20 mg tablet 20 mg PO QAM 11/30/20 11/19/21 History tiotropium 2.5 mcg-olodaterol 2.5 2 puff INHALATION DAILY #3 inhaler 01/09/21 11/19/21 Rx mcg/actuation mist for inhalation (Stiolto Respimat) albuterol sulfate 90 mcg/actuation 2 puff INHALATION Q6H PRN #18 g 09/10/21 11/19/21 Rx aerosol inhaler budesonide 0.25 mg/2 mL suspension 0.25 mg INHALATION BID PRN #60 ml 09/10/21 11/19/21 Rx for nebulization ipratropium 0.5 mg-albuterol 3 mg 3 ml INHALATION Q8H PRN #180 ml 09/10/21 11/19/21 Rx (2.5 mg base)/3 mL nebulization soln nebulizers #1 ea 10/11/21 11/19/21 Rx Oxygen Home #10 l 11/01/21 11/19/21 Rx furosemide 40 mg tablet 40 mg PO QAM #30 tab 11/01/21 11/19/21 Rx oxymetazoline 0.05 % nasal spray 1 spray NA Q12H PRN #1 btl 11/01/21 11/19/21 Rx (Nasal [place] (oxymetazoline)) sodium chloride 0.65 % nasal spray 2 spray NA Q8H PRN #1 btl 11/01/21 11/19/21 Rx aerosol (Saline Mist) atorvastatin 40 mg tablet 40 mg PO DAILY 11/19/21 11/19/21 History Past Med/Surg History Medical History Acute respiratory failure with hypoxia Aortic aneurysm Stable No 3.7 cm infrarenal AAA per 04/10/20 CT Abd/Pelvix BPH (benign prostatic hyperplasia) BPH NOS w ur obs/LUTS Carotid stenosis Critical (near occlusion) stenosis of the proximal LICA per 03/13/21 carotid doppler > reason for plavix per pt Chronic bronchitis Chronic obstructive pulmonary disease Chronic respiratory failure with hypoxia COPD with emphysema Essential tremor Right hand Ex-smoker Exertional shortness of breath GERD (gastroesophageal reflux disease) Hiatal hernia History of colon polyps History of migraine Hx of skin cancer, basal cell Hyperlipidemia Hypersomnia Jaw clicking No locking Lung nodule Reason for upcoming bronchoscopy Mixed restrictive and obstructive lung disease On home oxygen therapy 4L O2 continuous Palliative care encounter Pulmonary hypertension Severe pulmonary hypertension Per 01/2021 echo, RVSP 84mmhg Urinary incontinence Surgical History History of cataract surgery Right History of colonoscopy History of esophagogastroduodenoscopy (EGD) History of tooth extraction Family History Mother Family history of diabetes mellitus Grandmother No problems noted. Grandmother (Maternal) Family hx of colon cancer Other No family history of adverse response to anesthesia Social History Smoking Status: Never smoker Tobacco Type: Cigarettes packs per day: 1; Years Smoked: 2,007; Number of Years Since Quit: 14; Second Hand Exposure: Yes; Hx Alcohol Use: Yes Alcohol type: beer Hx Substance Use: No Preferred Language: Icelandic Communication Ability: Effective Director Of Medical Education Required: No Beliefs That Will Affect Care: None marital status: Current Living Situation: Spouse Current Living Situation Comment: Group Home community current occupational status: retired Feels Safe at Home: Yes caffeine: Yes Physical Activity Frequency: 3-4 Times per Week Physical Activity Frequency Comment: Treadmill walks Assistive Devices: Oxygen - Continuous Review of Systems Review of Systems: All systems reviewed & are unremarkable except as noted in HPI & below Physical Exam Physical Exam: General: patient resting comfortably, NAD, non-toxic in appearance, AA&O x 4 Skin: warm, dry, intact, no rashes or lesions HEENT: NC/AT, PERRL, EOMI, anicteric sclera, conjunctiva without injection, external ear normal to inspection and nontender, nares patent, moist mucus membranes, dentition intact, no oropharyngeal lesions, neck supple, trachea midline, no LAD, no thyromegaly, no JVD Heart: +S1/S2, regular, no m/r/g Lungs: equal air entry bilaterally, diffuse wheezing Abd: +BS, soft, NT/ND, no masses/organomegaly/ascites Ext: warm, 2+ pulses in UE/LE bilaterally, no clubbing/cyanosis or edema Neuro: nonfocal, patient AA&O x 4, speech intact, no facial droop, moving all extremities on command with equal strength 5/5 Results & Data Results & Data ([facility]) Vital Signs (Past 12 Hours) Vital Signs Temp Pulse Pulse Resp BP BP Pulse Ox 11/19/21 02:31 105 H 22 119/61 92 11/19/21 01:43 91 H 22 93 11/19/21 01:35 93 H 26 H 135/78 95 11/19/21 01:29 93 11/19/21 01:26 30 H 11/19/21 01:15 37 C 11/19/21 01:13 85 L 11/19/21 01:03 97 H 28 H 152/103 H 85 L Laboratory Results Laboratory Results WBC 7.87 K/uL (4.8-10.8) 11/19/21 01:11 RBC 4.22 M/uL (4.7-6.1) L 11/19/21 01:11 Hgb 14.6 g/dL (14.0-18.0) 11/19/21 01:11 Hct 44.5 % (42-52) 11/19/21 01:11 MCV 105.5 fL (80-100) H 11/19/21 01:11 MCH 34.6 pg (25-34) H 11/19/21 01:11 MCHC 32.8 g/dL (32-36) 11/19/21 01:11 RDW Std Deviation 54.2 fL (36.4-46.3) H 11/19/21 01:11 RDW Coeff of Megan 14.1 % (11.5-14.5) 11/19/21 01:11 Plt Count 259 K/uL (130-400) 11/19/21 01:11 MPV 9.6 fL (7.4-10.4) 11/19/21 01:11 Neutrophils % (Manual) 39.4 % 11/19/21 01:11 Lymphocytes % (Manual) 21.9 % 11/19/21 01:11 Monocytes % (Manual) 8.8 % 11/19/21 01:11 Eosinophils % (Manual) 8.8 % 11/19/21 01:11 Basophils % (Manual) 1.8 % 11/19/21 01:11 Myelocytes % (Man) 0.9 % 11/19/21 01:11 Neutrophils # (Manual) 3.10 K/uL (1.4-6.5) 11/19/21 01:11 Total Absolute Neuts 3.10 K/uL (1.4-6.5) 11/19/21 01:11 Lymphocytes # (Manual) 1.72 K/uL (1.2-3.4) 11/19/21 01:11 Total Abs Lymphocytes 3.17 K/uL (1.2-3.4) 11/19/21 01:11 Monocytes # (Manual) 0.69 K/uL (0.11-0.59) H 11/19/21 01:11 Eosinophils # (Manual) 0.69 K/uL (0-0.5) H 11/19/21 01:11 Basophils # (Manual) 0.14 K/uL (0-0.2) 11/19/21 01:11 Myelocytes # (Manual) 0.07 K/uL (0-0) H 11/19/21 01:11 Large Granular Lymphs 18.4 % 11/19/21 01:11 # Lrg Granular Lymphs 1.45 K/uL 11/19/21 01:11 PT 11.2 Seconds (9.0-12.0) 11/19/21 01:11 INR 1.1 (0.9-1.1) 11/19/21 01:11 APTT 21.7 Seconds (21.0-31.0) 11/19/21 01:11 PTT Ratio 0.8 11/19/21 01:11 VBG pH 7.33 (7.36-7.41) L 11/19/21:29 VBG pCO2 41 mmHg (38-50) 11/19/21:29 VBG pO2 28 mmHg 11/19/21: VBG HCO3 21 mmol/L 11/19/21 01:29 VBG O2 Saturation < 60.0 % 11/19/21 01:29 VBG Base Excess -4.2 mEq/L 11/19/21:29 Barometric Pressure 735.9 mm/Hg 11/19/21 01:29 Sodium 142 mmol/L (136-145) 11/19/21 01:11 Potassium 4.0 mmol/L (3.5-5.1) 11/19/21 01:11 Chloride 106 mmol/L (98-107) 11/19/21 01:11 Carbon Dioxide 19 mmol/L (21-32) L 11/19/21 01:11 Anion Gap 17 (3-11) H 11/19/21 01:11 BUN 24 mg/dl (6-23) H 11/19/21 01:11 Creatinine 1.18 mg/dl (0.6-1.4) 11/19/21 01:11 Est Cr Clr Drug Dosing 57.2 ml/min 11/19/21 01:11 Est GFR ( Amer) 70.5 ml/min 11/19/21 01:11 Est GFR (Non-Af Amer) 60.9 ml/min 11/19/21 01:11 BUN/Creatinine Ratio 20.3 (10-20) H 11/19/21 01:11 Glucose 239 mg/dl (70-99(Fasting)) H 11/19/21 01:11 Calcium 9.2 mg/dl (8.5-10.1) 11/19/21 01:11 Total Bilirubin 1.0 mg/dl (0.2-1.0) 11/19/21 01:11 AST 32 U/L (13-39) 11/19/21 01:11 ALT 24 U/L (7-52) 11/19/21 01:11 Alkaline Phosphatase 138 U/L (34-104) H 11/19/21 01:11 Troponin I High Sens 89.9 pg/ml (0-20) H* D 11/19/21 01:11 B-Natriuretic Peptide 796 pg/ml (0-100) H 11/19/21 01:29 Total Protein 6.2 gm/dl (6.0-8.3) 11/19/21 01:11 Albumin 3.8 gm/dl (3.4-5.0) 11/19/21 01:11 Globulin 2.4 gm/dl (2.5-4.0) L 11/19/21 01:11 Albumin/Globulin Ratio 1.6 (0.9-2) 11/19/21 01:11 Urine Color Yellow 11/19/21 02:35 Urine Appearance Cloudy (Clear) A 11/19/21 02:35 Urine pH 5.0 (4.5-7.5) 11/19/21 02:35 Ur Specific [place] 1.019 (1.000-1.030) 11/19/21 02:35 Urine Protein 2+ (Negative) H 11/19/21 02:35 Urine Glucose (UA) Negative (Negative) 11/19/21 02:35 Urine Ketones Negative (Negative) 11/19/21 02:35 Urine Blood 3+ (Negative) H 11/19/21 02:35 Urine Nitrite Negative (Negative) 11/19/21 02:35 Urine Bilirubin Negative (Negative) 11/19/21 02:35 Urine Urobilinogen Negative (Negative) 11/19/21 02:35 Ur Leukocyte Esterase 1+ (Negative) H 11/19/21 02:35 Urine WBC (Auto) >30 /hpf (0-5) H 11/19/21 02:35 Urine RBC (Auto) >30 /hpf (0-4) H 11/19/21 02:35 U Hyaline Cast (Auto) 10-30 /lpf (0-5) H 11/19/21 02:35 U Epithel Cells (Auto) 10-20 /lpf (0-5) H 11/19/21 02:35 Urine Bacteria (Auto) Negative (Negative) 11/19/21 02:35 SARS-CoV-2 (PCR) NEGATIVE (Negative) 11/19/21 01:19 Influenza Type A (PCR) Negative (Neg) 11/19/21 01:19 Influenza Type B (PCR) Negative (Neg) 11/19/21 01:19 RSV (RT-PCR) Negative (Neg) 11/19/21 01:19 Code Status & VTE Plan VTE Prophylaxis Plan VTE Prophylaxis will be ordered: Yes PG Care Time/CCT Total # of Minutes Spent Total Time Spent with Patient: Total time spent is greater than 50% in coordination of care (as documented) at patient's floor/unit and/or counseling patient: Coding Level of Care Code 63246 Initial Inpt Care Lvl 3 Diagnoses Hypoxia R09.02 Mass of upper lobe of left lung R91.8 Hyperlipidemia E78.5 GERD (gastroesophageal reflux disease) K21.9 Carotid stenosis I65.29 Elevated troponin R77.8
[2021-11-19 02:54] LABS: Appearance Urine Cloudy (Clear); Bacteria Urine Automated Negative (Negative); Bilirubin Urine Negative (Negative); Blood Urine 3+ (Negative); Color Urine Yellow; Glucose Urine UA Negative (Negative); Ketones Urine Negative (Negative); Leukocyte Esterase Urine 1+ (Negative); Nitrite Urine Negative (Negative); Protein Urine 2+ (Negative); RBC Urine Automated >30 /hpf (0-4); Specific Gravity Urine 1.019 (1.000-1.030); Urobilinogen Urine Negative (Negative); WBC Urine Automated >30 /hpf (0-5)
[2021-11-19] MEDS ORDERED: SODIUM CHLORIDE 0.65% NA SOLN 45 ML (OCEAN) PRN (03:50)
[2021-11-19] MEDS ORDERED: OXYMETAZOLINE 0.05% 30 ML BTL PRN (03:50)
[2021-11-19] MEDS ORDERED: AZITHROMYCIN 250 MG TAB PO ONE (03:50)
[2021-11-19] MEDS ORDERED: ALBUTEROL 0.5% NEB SOLN 2.5 MG/0.5 ML VIAL NEB PRN (03:50)
[2021-11-19] MEDS ORDERED: ACETAMINOPHEN 325 MG TAB PO PRN (03:50)
[2021-11-19] MEDS ORDERED: NITROGLYCERIN SL 0.4 MG/TAB TAB SL PRN (03:50)
[2021-11-19] MEDS ORDERED: ALBUTEROL 0.083% NEBU SOLN 3 ML VIAL NEB PRN (04:04)
[2021-11-19] MEDS: ALBUT/IPRATROP 3MG/0.5MG NEB 3 ML VIAL NEB SCH ×5 (04:09→19:52)
--- NOTE | 2021-11-19 06:52 | XRay Report ---
XR chest 1V portable HISTORY: 71 years-old Male Dyspnea acute shortness of breath COMPARISON: Chest radiograph 10/31/2021, CTA chest 10/24/2021. TECHNIQUE: Portable AP view of the chest FINDINGS: Cardiac silhouette is enlarged. Emphysema with chronic interstitial coarsening. Irregular nodule with in the left upper lobe redemonstrated. No pneumothorax. Trace pleural effusions with mild bibasilar o pacities. No overt pulmonary edema. Degenerative changes of the shoulders and spine. IMPRESSION: 1. Cardiomegaly without pulmonary edema. 2. Trace pleural effusions with mild bibasilar opacities suggestive of atelectasis versus pneumonitis . 3. Emphysema. 4. Irregular left upper lobe pulmonary nodule redemonstrated. ACT 112: Negative or not required by law. The above report was generated using voice recognition software. It may contain grammatical, syntax o r spelling errors. Electronically signed by: Mikey Cid M.D. 11/19/2021 6:51 AM
[2021-11-19 07:03] LABS: Troponin I High Sensitivity 3544.6 pg/ml (0-20)
--- NOTE | 2021-11-19 07:50 | Hospitalist Progress Note ---
Date of Service November 19, 2021 Assessment & Plan (1) Hypoxia: Plan: 71yo male with history of chronic hypoxic respiratory failure on 7-9L of O2 at home presenting with acute hypoxia. Most likely secondary to being off O2 at home - worsening pulmonary hypertension and COPD exacerbation. Severe PAH functional class IV (patient with inability to perform minimal activities, dyspnea at rest and significantly worsened with any activity). Suspected class II/III pulmonary hypertension with underlying emphysema and left heart disease. Last echo with mod concentric LVH COPD class D. Last PFTs 02/2021 moderate COPD with emphysema, FVC 78%, FEV1 68%, FEV1/FVC 66%, TLC 76%, DLCO 31% Patient admits issues revolved around him running out of his oxygen. We will attempt to get back towards his usual oxygen state which is somewhere between 8 and 10 L a minute nasal cannula -Solumedrol 30mg IV TID -Azithromycin for anti-inflammatory effects of lung -Continue DuoNebs plus tiotropium/olodaterol or formulary equivalent -Flutter Valve -Incentive spirometry -Continue Lasix 40mg po qAM -Patient was recently transitioned to hospice care. He is DNR/DNI and does not wish to have CPAP or BiPAP placed -He follows with Pulmonary (2) Elevated troponin: Plan: HS Troponin elevation . Patient reports some chest tightness. No ischemic changes on EKG -demand ischemia from hypoxia however was significant rise in second troponin will await third check -Patient denies any chest pain of any kind at this point likely would not be a candidate for intervention if troponin remains elevated may consider 48 hours of anticoagulationpatient is on aspirin, Plavix -EKG as needed for chest pain -Continue ASA and Plavix (3) Mass of upper lobe of left lung: Plan: Adenocarcinoma of lung - Diagnosed in June 2021, not a surgical candidate, completed radiation treatment last month. PET positive left upper lobe 1.6 cm x 1 cm-->Increased in size to 2.2cm 08/2021, slightly decreased in size since completing radiation. -Not a surgical candidate due to severe reduction in DLCO -Hospice care (4) Hyperlipidemia: Plan: Chronic -Continue Atorvastatin (5) GERD (gastroesophageal reflux disease): Plan: Chronic. Stable -Continue Famotidine 20mg po daily (6) Carotid stenosis: Plan: Chronic. Near complete occlusion of LICA -Continue ASA and Plavix -Presently asymptomatic Admission and Anticipated Discharge Date Admission Date: November 19, 2021 Subjective Patient is doing much better however he is on high flow oxygen at this time. Patient freely admits that his issue revolves around malfunction of his eq uipment when his oxygen tubing became disconnected and due to his hypoxia he cannot get reconnected subsequently called the ambulance and arriving in our facility. Now with his hypoxia replete he feels back to his normal condition and understands that he may not be able to go back to independent living and is excepting of the fact that he will be in the custodial facility portion of the [facility] Review of Systems Review of Systems: moderated respiratory distress and fatigue-> his baseline no headache, no visual changes no speech or swallowing issues no chest pain, pressure or palpitations persistent shortness of breath, no cough, mucus production or wheezes no abdominal pain, nausea or vomiting, diarrhea or constipation no dysuria, hematuria or frequency no focal joint pain or swelling no back pain, CVA tenderness or radicular pain no bruising, bleeding or rashes no focal signs of weakness or numbness or altered sensation no complaints of anxiety or depression.. Physical Exam Physical Exam: The patient appeared well nourished and normally developed. Vital signs as documented. Head exam is normocephalic atraumatic Neck is without JVD, thyromegaly, or carotid bruits. Lungs are dry rales are heard in all lung [place] tachypnea with increased exercise of any kind and overall poor air movement Cardiac exam, Rhythm is regular.. Systolic ejection murmur Abdominal exam reveals normal bowel sounds, soft non tender, no masses Extremities are nonedematous and both pedal pulses are present Neurologic exam is alert and oriented, no focal loss of strength or sensation Skin is without bruises or rashes Psychologically is without concerns for anxiety or depression.. Results & Data Results & Data ([facility]) Vital Signs (Past 12 Hours) Vital Signs Temp Pulse Pulse Resp BP BP Pulse Ox 11/19/21 07:00 97.5 F L 90 20 115/73 91 11/19/21 06:57 90 20 94 11/19/21 03:50 97.7 F 88 108/67 94 11/19/21 02:44 89 18 94 11/19/21 02:31 105 H 22 119/61 92 11/19/21 01:43 91 H 22 93 11/19/21 01:35 93 H 26 H 135/78 95 11/19/21 01:29 93 11/19/21 01:26 30 H 11/19/21 01:15 98.6 F 11/19/21 01:13 85 L 11/19/21 01:03 97 H 28 H 152/103 H 85 L PG Care Time/CCT Total # of Minutes Spent Total Time Spent with Patient: Total time spent is greater than 50% in coordination of care (as documented) at patient's floor/unit and/or counseling patient: Coding Level of Care Code 71469 Subseq Hosp Care Lvl 3 Diagnoses Hypoxia R09.02 Elevated troponin R77.8 Mass of upper lobe of left lung R91.8 Hyperlipidemia E78.5 GERD (gastroesophageal reflux disease) K21.9 Carotid stenosis I65.29
[2021-11-19] MEDS: methylPREDNISolone 30 MG in SYRINGE 0 ML IV SCH ×2 (08:41→17:19)
[2021-11-19] MEDS: ASPIRIN 81 MG ECTAB PO SCH (08:41)
[2021-11-19] MEDS: ATORVASTATIN 40 MG TAB PO SCH (08:41)
[2021-11-19] MEDS: CLOPIDOGREL BISULFATE 75 MG TAB PO SCH (08:41)
[2021-11-19] MEDS: ENOXAPARIN INJ 40 MG/0.4 ML SYR SQ SCH (08:41)
[2021-11-19] MEDS: FAMOTIDINE 20 MG TAB PO SCH (08:41)
[2021-11-19] MEDS: FUROSEMIDE 40 MG TAB PO SCH (08:42)
[2021-11-19] MEDS: UMECLIDINIUM/VILANTEROL 62.5/25MCG 7 PUFFS/INHALER INH SCH (08:42)
[2021-11-20] MEDS: methylPREDNISolone 30 MG in SYRINGE 0 ML IV SCH ×3 (00:32→18:30)
[2021-11-20] MEDS: ALBUT/IPRATROP 3MG/0.5MG NEB 3 ML VIAL NEB SCH ×8 (02:40→22:27)
[2021-11-20 06:07] LABS: Hematocrit (blood only) 37.9 % (42-52); Hemoglobin 12.6 g/dL (14.0-18.0); Immature Granulocytes # (auto) 0.04 K/uL (0.00-0.02); Immature Granulocytes % (auto) 0.4 %; Lymphocytes # (auto) 0.57 K/uL (1.2-3.4); Lymphocytes % (auto) 5.2 %; Mean Corpuscular Hemoglobin 34.1 pg (25-34); Mean Corpuscular Hgb Conc 33.2 g/dL (32-36); Mean Corpuscular Volume 102.4 fL (80-100); Mean Platelet Volume 9.5 fL (7.4-10.4); Monocytes % (auto) 4.6 %; Neutrophils # (auto) 9.77 K/uL (1.4-6.5); Neutrophils % (auto) 89.8 %; Platelet Count 221 K/uL (130-400); RDW Coefficient of Variation 14.1 % (11.5-14.5); RDW Standard Deviation 52.4 fL (36.4-46.3); White Blood Count 10.88 K/uL (4.8-10.8)
--- NOTE | 2021-11-20 06:15 | Electrocardiogram Report ---
Test Reason : Blood Pressure : / mmHG Vent. Rate : 112 BPM Atrial Rate : 112 BPM P-R Int : 180 ms QRS Dur : 090 ms QT Int : 324 ms P-R-T Axes : 077 -52 076 degrees QTc Int : 442 ms Poor data quality, interpretation may be adversely affected Sinus tachycardia Possible Left atrial enlargement Left axis deviation Possible Septal infarct , age undetermined Nonspecific ST and T wave abnormality Abnormal ECG When compared with ECG of 24-OCT-2021 09:22, ST now depressed in Anterolateral leads Nonspecific T wave abnormality no longer evident in Inferior leads Nonspecific T wave abnormality has replaced inverted T waves in Anterior leads Confirmed by Mauro Arciniega ([id number]) on 11/20/2021 6:15:38 AM Referred By: Renuka [facility] Confirmed By:Mauro Arciniega
[2021-11-20 06:41] LABS: BUN Creatinine Ratio 28.7 (10-20); Calcium 8.9 mg/dl (8.5-10.1); Creatinine Clr Calc Pharmacy 74.3 ml/min; Est GFR (African American) 92.9 ml/min; Est GFR (Non-African American) 80.1 ml/min; Potassium 4.4 mmol/L (3.5-5.1)
[2021-11-20] MEDS: FUROSEMIDE 40 MG TAB PO SCH (08:26)
[2021-11-20] MEDS: FAMOTIDINE 20 MG TAB PO SCH (08:26)
[2021-11-20] MEDS: ATORVASTATIN 40 MG TAB PO SCH (08:26)
[2021-11-20] MEDS: ENOXAPARIN INJ 40 MG/0.4 ML SYR SQ SCH (08:26)
[2021-11-20] MEDS: ASPIRIN 81 MG ECTAB PO SCH (08:26)
[2021-11-20] MEDS: CLOPIDOGREL BISULFATE 75 MG TAB PO SCH (08:26)
[2021-11-20] MEDS: AZITHROMYCIN 250 MG TAB PO SCH (08:26)
[2021-11-20] MEDS: UMECLIDINIUM/VILANTEROL 62.5/25MCG 7 PUFFS/INHALER INH SCH (08:27)
--- NOTE | 2021-11-20 10:40 | XRay Report ---
SINGLE VIEW CHEST CLINICAL HISTORY: Acute on chronic respiratory failure. FINDINGS: An AP, portable, upright chest radiograph is compared to study dated 11/19/2021 and correlate d with chest CT dated 10/24/2021. The heart is enlarged noting atherosclerotic calcification of the th oracic aorta. The pulmonary vasculature is noncongested. Emphysema and chronic interstitial thickenin g is similar to previous. Enlargement of the central pulmonary arteries suggests pulmonary artery hyp ertension patchy A spiculated nodule is again seen in the left upper lobe. This was better evaluated on the recent chest CT. There is bibasilar scarring/atelectasis, left greater than right. No large pl eural effusion or pneumothorax is seen. The skeletal structures are osteopenic. The bony thorax is gr ossly intact. IMPRESSION: 1. Cardiomegaly and emphysema with no radiographic evidence of congestive failure. 2. A spiculated nodule is again seen at the left apex. This was better characterized on the recent est CT. 3. There is no airspace consolidation typical for pneumonia or large pleural effusion. ACT 112: Negative or not required by law. Electronically signed by: Koffi Farley M.D. 11/20/2021 10:38 AM
--- NOTE | 2021-11-20 16:36 | Ultrasound Report ---
BILATERAL LOWER EXTREMITY VENOUS DOPPLER HISTORY: severe hypoxia; lung ca; eval DVT COMPARISON STUDY: None. FINDINGS: There is normal compressibility, flow, and augmentation within the bilateral lower extremit y deep venous systems. IMPRESSION: No DVT within the right or left lower extremity. ACT 112: Negative or not required by law. Electronically signed by: Jabari Valdes M.D. 11/20/2021 4:34 PM
--- NOTE | 2021-11-20 20:12 | Hospitalist Progress Note ---
Date of Service November 20, 2021 Assessment & Plan (1) Acute and chronic respiratory failure with hypoxia: Plan: Acute component likely combination of COPD (can't exclude exacerbation), his markedly severe pulmonary HTN, and also cannot rule out element of pulmonary edema and/or infectious process. Favor former 2 components, however. Cont HFNC and wean as tolerated. For COPD - cont IV solumedrol. For ? infectious process - zithromax. For ? pulmonary edema - lasix 40mg po daily. For pulmonary HTN - cont oxygen. Will check dopplers of legs - r/o DVT. I don't think he would tolerate CTA chest at this time, and he had neg CTA chest for PE just a few short weeks ago. (2) Severe pulmonary hypertension: Plan: with high O2 requirement at baseline (8 L NC O2). will need to wean him to 10 L at most in order to allow safe discharge to [facility] ([facility]). (3) Chronic obstructive pulmonary disease: (4) NSTEMI (non-ST elevated myocardial infarction): Plan: HS troponin noted (4000). NSTEMI is quite possible although he never had true ischemic symptoms. [id number] his EKG shows lateral ST segment depressions. Previous echo - 01/2021 - no wall motion abnormalities, severe RV failure. (5) Adenocarcinoma of lung: Plan: MANOJ. No further Rx. Hospice. (6) Carotid stenosis: (7) BPH (benign prostatic hyperplasia): (8) Aortic aneurysm: Plan: no symptoms to suggest rupture or dissection (9) GERD (gastroesophageal reflux disease): Plan: H2 felicita daily (10) Hyperlipidemia: Plan: upon discharge to SNF with hospice would stop statin, etc (11) Essential tremor: (12) Elevated troponin: Plan: see above (13) Chronic right-sided congestive heart failure: Plan: severe right-sided cor pulmonale. although cxr does not show pulmonary edema he could have element of such. cont lasix. Plan: focus on weaning O2 in light of hospice status updated by phone this evening Admission and Anticipated Discharge Date Admission Date: November 19, 2021 Subjective tele overnight wnl remains on high settings of HFNC - 30 L, 60% Fio2 his dyspnea at rest and with activity is about baseline for him he states he was using 8 L NC O2 at home prior to coming in denies any cough denies loss of appetite no chest pain he realizes he can't return to his [facility] [place] [facility] and that he will need to go to the [facility] confirms that he is on Hospice denies chest pain Review of Systems Review of Systems: gen - no fevers cv - no cp pulm - no cough or sputum production Gi - no abd pain or nausea Physical Exam Physical Exam: gen - NAD, very pleasant, was talking on phone prior to my arrival mouth - MMM neck - JVD present heart - RRR, s1 s2, 2/6 systolic murmur LLSB lungs - decreased BS bases, no rales, no tachypnea or retractions abd - soft NT ND BS+ ext - trace edema b/l, pulses 2+ b/l psych - a/o x 3 Results & Data Results & Data ([facility]) Vital Signs (Past 12 Hours) Vital Signs Temp Pulse Resp BP Pulse Ox 11/20/21 19:44 90 19 90 11/20/21 19:33 36.3 C L 94 H 20 122/69 11/20/21 15:40 36.5 C 98 H 22 109/65 80 L 11/20/21 15:24 94 H 20 86 L 11/20/21 15:04 36.6 C 86 20 147/75 H 93 11/20/21 10:59 36.6 C 99 H 20 96/50 L 87 L 11/20/21 10:43 100 H 20 89 L 11/20/21 10:42 100 H 20 89 L 11/20/21 08:14 36.4 C L 107 H 24 114/58 L 80 L Laboratory Results Abnormal Labs 11/19/21 11/19/21 11/19/21 01:11 01:11 01:11 WBC RBC 4.22 L Hgb Hct MCV 105.5 H MCH 34.6 H RDW Std Deviation 54.2 H Neut # (Auto) Lymph # (Auto) Immature Gran # (Auto) Monocytes # (Manual) 0.69 H Eosinophils # (Manual) 0.69 H Myelocytes # (Manual) 0.07 H VBG pH Chloride Carbon Dioxide 19 L Anion Gap 17 H BUN 24 H BUN/Creatinine Ratio 20.3 H Glucose 239 H Phosphorus Alkaline Phosphatase 138 H Troponin I High Sens 89.9 H* D B-Natriuretic Peptide Globulin 2.4 L Urine Appearance Urine Protein Urine Blood Ur Leukocyte Esterase Urine WBC (Auto) Urine RBC (Auto) U Hyaline Cast (Auto) U Epithel Cells (Auto) 11/19/21 11/19/21 11/19/21 01:29 01:29 02:35 WBC RBC Hgb Hct MCV MCH RDW Std Deviation Neut # (Auto) Lymph # (Auto) Immature Gran # (Auto) Monocytes # (Manual) Eosinophils # (Manual) Myelocytes # (Manual) VBG pH 7.33 L Chloride Carbon Dioxide Anion Gap BUN BUN/Creatinine Ratio Glucose Phosphorus Alkaline Phosphatase Troponin I High Sens B-Natriuretic Peptide 796 H Globulin Urine Appearance Cloudy A Urine Protein 2+ H Urine Blood 3+ H Ur Leukocyte Esterase 1+ H Urine WBC (Auto) >30 H Urine RBC (Auto) >30 H U Hyaline Cast (Auto) 10-30 H U Epithel Cells (Auto) 10-20 H 11/19/21 11/19/21 11/20/21 06:16 12:58 05:45 WBC 10.88 H RBC 3.70 L Hgb 12.6 L Hct 37.9 L MCV 102.4 H MCH 34.1 H RDW Std Deviation 52.4 H Neut # (Auto) 9.77 H Lymph # (Auto) 0.57 L Immature Gran # (Auto) 0.04 H Monocytes # (Manual) Eosinophils # (Manual) Myelocytes # (Manual) VBG pH Chloride Carbon Dioxide Anion Gap BUN BUN/Creatinine Ratio Glucose Phosphorus 2.0 L Alkaline Phosphatase Troponin I High Sens 3544.6 H* D 4060.6 H* B-Natriuretic Peptide Globulin Urine Appearance Urine Protein Urine Blood Ur Leukocyte Esterase Urine WBC (Auto) Urine RBC (Auto) U Hyaline Cast (Auto) U Epithel Cells (Auto) 11/20/21 05:45 WBC RBC Hgb Hct MCV MCH RDW Std Deviation Neut # (Auto) Lymph # (Auto) Immature Gran # (Auto) Monocytes # (Manual) Eosinophils # (Manual) Myelocytes # (Manual) VBG pH Chloride 108 H Carbon Dioxide Anion Gap BUN 27 H BUN/Creatinine Ratio 28.7 H Glucose 187 H Phosphorus Alkaline Phosphatase Troponin I High Sens B-Natriuretic Peptide Globulin Urine Appearance Urine Protein Urine Blood Ur Leukocyte Esterase Urine WBC (Auto) Urine RBC (Auto) U Hyaline Cast (Auto) U Epithel Cells (Auto) PG Care Time/CCT Total # of Minutes Spent Total Time Spent with Patient: Total time spent is greater than 50% in coordination of care (as documented) at patient's floor/unit and/or counseling patient: Coding Level of Care Code 24831 Subseq Hosp Care Lvl 2 Diagnoses Acute and chronic respiratory failure with hypoxia J96.21 Adenocarcinoma of lung C34.90 Severe pulmonary hypertension I27.20 Chronic obstructive pulmonary disease J44.9 Carotid stenosis I65.29 BPH (benign prostatic hyperplasia) N40.0 Aortic aneurysm I71.9 GERD (gastroesophageal reflux disease) K21.9 Hyperlipidemia E78.5 Essential tremor G25.0 Elevated troponin R77.8 NSTEMI (non-ST elevated myocardial infarction) I21.4 Chronic right-sided congestive heart failure I50.812
[2021-11-21] MEDS: methylPREDNISolone 30 MG in SYRINGE 0 ML IV SCH ×3 (00:32→20:29)
[2021-11-21] MEDS: ALBUT/IPRATROP 3MG/0.5MG NEB 3 ML VIAL NEB SCH ×6 (02:53→22:34)
[2021-11-21] MEDS: FUROSEMIDE 40 MG TAB PO SCH (08:39)
[2021-11-21] MEDS: ATORVASTATIN 40 MG TAB PO SCH (08:39)
[2021-11-21] MEDS: FAMOTIDINE 20 MG TAB PO SCH (08:39)
[2021-11-21] MEDS: ASPIRIN 81 MG ECTAB PO SCH (08:39)
[2021-11-21] MEDS: UMECLIDINIUM/VILANTEROL 62.5/25MCG 7 PUFFS/INHALER INH SCH (08:40)
[2021-11-21] MEDS: ENOXAPARIN INJ 40 MG/0.4 ML SYR SQ SCH (08:40)
[2021-11-21] MEDS: CLOPIDOGREL BISULFATE 75 MG TAB PO SCH (08:40)
[2021-11-21] MEDS: AZITHROMYCIN 250 MG TAB PO SCH (08:40)
--- NOTE | 2021-11-21 13:48 | Hospitalist Progress Note ---
Date of Service November 21, 2021 Assessment & Plan (1) Acute and chronic respiratory failure with hypoxia: Plan: Acute component likely combination of COPD (can't exclude exacerbation), his markedly severe pulmonary HTN, and also cannot rule out element of pulmonary edema and/or infectious process. NSTEMI cannot be ruled out either. For COPD - cont IV solumedrol. Wean to BID dosing from TID. For ? infectious process - zithromax. Finish 5-day course. For ? pulmonary edema - lasix 40mg po daily. For pulmonary HTN - cont oxygen. For NSTEMI - supportive care. (2) Severe pulmonary hypertension: Plan: with high O2 requirement at baseline (8 L NC O2). will need to wean him to 10 L at most in order to allow safe discharge to [facility] ([facility]). (3) Chronic obstructive pulmonary disease: Plan: cont IV solumedrol but wean to BID dosing (4) NSTEMI (non-ST elevated myocardial infarction): Plan: HS troponin noted (4000). NSTEMI is quite possible although he never had true ischemic symptoms. [id number] his EKG showed lateral ST segment depressions. Previous echo - 01/2021 - no wall motion abnormalities, severe RV failure. Simply repeat Trop in am. No invastive testing in light of cancer, hospcie status, and lack of symptoms. Cont asa. (5) Adenocarcinoma of lung: Plan: MANOJ. No further Rx. Hospice. (6) Carotid stenosis: (7) BPH (benign prostatic hyperplasia): (8) Aortic aneurysm: Plan: no symptoms to suggest rupture or dissection (9) GERD (gastroesophageal reflux disease): Plan: refractory despite H2 felicita. stop pepcid --- carafate 1gm po x 1 now, and PPI daily first dose now. (10) Hyperlipidemia: Plan: upon discharge to SNF with hospice would stop statin, etc (11) Essential tremor: (12) Elevated troponin: Plan: see above (13) Chronic right-sided congestive heart failure: Plan: severe right-sided cor pulmonale. although cxr does not show pulmonary edema he could have element of such. cont lasix. Plan: updated by phone yesterday evening cont to wean FiO2 Admission and Anticipated Discharge Date Admission Date: November 19, 2021 Subjective no issues overnight feels similar or slightly better than yesterday breathing is close to baseline Vapotherm has been weaned off now on wall-mounted high-flow NC -- 13 L no cough with PO lasix he notices good diuresis he did have GERD symptoms following lunch today despite pepcid tele wnl overnight Review of Systems Review of Systems: gen - no fevers cv - no cp; edema of legs improved pulm - no sputum GI - no pain Physical Exam Physical Exam: gen - NAD, very pleasant mouth - MMM neck - JVD present heart - RRR, s1 s2, 2/6 systolic murmur LLSB lungs - decreased BS bases but better airation today than yesterday; no rales or wheeze abd - soft NT ND BS+ ext - trace edema b/l, pulses 2+ b/l psych - a/o x 3 Results & Data Results & Data ([facility]) Vital Signs (Past 12 Hours) Vital Signs Temp Pulse Pulse Resp BP Pulse Ox Pulse Ox 11/21/21 10:59 36.2 C L 96 H 22 120/67 90 11/21/21 10:34 90 20 92 11/21/21 08:38 104/54 L 11/21/21 08:00 84 90 11/21/21 07:41 93 H 20 91/48 L 90 11/21/21 07:24 89 22 92 11/21/21 07:22 89 22 92 11/21/21 03:37 36.4 C L 88 18 94/52 L 95 11/21/21 02:55 88 20 91 PG Care Time/CCT Total # of Minutes Spent Total Time Spent with Patient: Total time spent is greater than 50% in coordination of care (as documented) at patient's floor/unit and/or counseling patient: Coding Level of Care Code 14702 Subseq Hosp Care Lvl 2 Diagnoses Acute and chronic respiratory failure with hypoxia J96.21 Severe pulmonary hypertension I27.20 Chronic obstructive pulmonary disease J44.9 NSTEMI (non-ST elevated myocardial infarction) I21.4 Adenocarcinoma of lung C34.90 Carotid stenosis I65.29 BPH (benign prostatic hyperplasia) N40.0 Aortic aneurysm I71.9 GERD (gastroesophageal reflux disease) K21.9 Hyperlipidemia E78.5 Essential tremor G25.0 Elevated troponin R77.8 Chronic right-sided congestive heart failure I50.812
[2021-11-21] MEDS ORDERED: PANTOprazole 40 MG TAB PO STA (13:55)
[2021-11-21] MEDS ORDERED: SUCRALFATE 1 GM/10 ML UDC PO ONE (14:00)
[2021-11-22] MEDS: ALBUT/IPRATROP 3MG/0.5MG NEB 3 ML VIAL NEB SCH ×6 (03:45→22:11)
[2021-11-22 08:25] LABS: BUN Creatinine Ratio 30.4 (10-20); Calcium 9.3 mg/dl (8.5-10.1); Creatinine Clr Calc Pharmacy 68.7 ml/min; Est GFR (African American) 84.1 ml/min; Est GFR (Non-African American) 72.6 ml/min; Potassium 4.4 mmol/L (3.5-5.1)
[2021-11-22 08:32] LABS: Troponin I High Sensitivity 1279.7 pg/ml (0-20)
[2021-11-22] MEDS: ENOXAPARIN INJ 40 MG/0.4 ML SYR SQ SCH (08:55)
[2021-11-22] MEDS: CLOPIDOGREL BISULFATE 75 MG TAB PO SCH (08:55)
[2021-11-22] MEDS: ASPIRIN 81 MG ECTAB PO SCH (08:55)
[2021-11-22] MEDS: FUROSEMIDE 40 MG TAB PO SCH (08:56)
[2021-11-22] MEDS: PANTOprazole 40 MG TAB PO SCH (08:56)
[2021-11-22] MEDS: methylPREDNISolone 30 MG in SYRINGE 0 ML IV SCH ×2 (08:56→21:15)
[2021-11-22] MEDS: AZITHROMYCIN 250 MG TAB PO SCH (08:56)
[2021-11-22] MEDS: ATORVASTATIN 40 MG TAB PO SCH (08:56)
[2021-11-22] MEDS: UMECLIDINIUM/VILANTEROL 62.5/25MCG 7 PUFFS/INHALER INH SCH (08:57)
[2021-11-22] MEDS ORDERED: FUROSEMIDE 20 MG TAB PO ONE (15:56)
--- NOTE | 2021-11-22 20:31 | Hospitalist Progress Note ---
Date of Service November 22, 2021 Assessment & Plan (1) Acute and chronic respiratory failure with hypoxia: Plan: Acute component likely combination of COPD (can't exclude exacerbation), his markedly severe pulmonary HTN, and also cannot rule out element of pulmonary edema and/or infectious process. NSTEMI leading to decompensated CHF also possible given the marked elevation in the troponin. For COPD - cont IV solumedrol BID. For ? infectious process - zithromax. Finish 5-day course. Today is day #3. For ? pulmonary edema - lasix 40mg po daily. Give additional 20mg po lasix x 1 this afternoon. For pulmonary HTN - cont oxygen. For NSTEMI - supportive care. (2) Severe pulmonary hypertension: Plan: with high O2 requirement at baseline (8 L NC O2). will need to wean him to 10 L at most in order to allow safe discharge to [facility] ([facility]). (3) Chronic obstructive pulmonary disease: Plan: cont IV solumedrol and nebs (4) NSTEMI (non-ST elevated myocardial infarction): Plan: HS troponin noted (4000). NSTEMI is quite possible (had a vague chest discomfort when he did not have his O2 on at home). His EKG showed lateral ST segment depressions at time of presentation. Previous echo - 01/2021 - no wall motion abnormalities, severe RV failure. Trop peaked and came down nicely. No invastive testing in light of cancer, hospice status, and lack of symptoms. Cont asa. (5) Adenocarcinoma of lung: Plan: MANOJ. No further Rx. Hospice. (6) Carotid stenosis: (7) BPH (benign prostatic hyperplasia): Plan: PVR was about 250cc shortly after my visit we offered jiménez placement but he declined cont bladder scan qshift strongly consider jiménez if urinary retention continues (PVRs>300) add flomax 0.4mg in meantime (8) Aortic aneurysm: Plan: no symptoms to suggest rupture or dissection (9) GERD (gastroesophageal reflux disease): Plan: improved s/p PPI cont daily PPI (10) Hyperlipidemia: Plan: upon discharge to SNF with hospice would stop statin, etc (11) Essential tremor: (12) Elevated troponin: Plan: see above (13) Chronic right-sided congestive heart failure: Plan: severe right-sided cor pulmonale. suspect acute/chronic right-sided CHF -- cont lasix daily; add additional dose later this afternoon. Plan: updated by phone once again this evening cont to wean FiO2 dispo - [facility] ([facility]) at discharge with hospice in place Admission and Anticipated Discharge Date Admission Date: November 19, 2021 Subjective tele overnight with NSR no new issues although he notes that he is voiding every 20-30 minutes and voiding small amounts each time having nocturia as well no dysuria required >15 L of O2 overnight, but able to wean back to wall-mounted highflow this am during my rounds he was on 14 L O2 he denies cough denies dyspnea at rest chronic [place] is unchanged no chest pain no orthopnea he admits to feeling a little down today Review of Systems Review of Systems: gen - appetite is good, no fever cv - edema of LEs resolved GI - no N/V pulm - no cough or wheeze Physical Exam Physical Exam: gen - NAD, very pleasant mouth - MMM neck - JVD unchanged heart - RRR, s1 s2, 2/6 systolic murmur LLSB lungs - decreased BS bases; scant rales L base; no wheeze; no tachypnea abd - soft NT BS+; bladder palpable in the midline ext - no edema of either leg, pulses 2+ b/l psych - a/o x 3, restricted affect Results & Data Results & Data ([facility]) Vital Signs (Past 12 Hours) Vital Signs Temp Pulse Pulse Resp BP Pulse Ox 11/22/21 19:52 86 22 93 11/22/21 19:18 36.3 C L 21 146/72 H 87 L 11/22/21 15:27 36.5 C 87 22 134/75 88 L 11/22/21 14:54 86 11/22/21 14:45 78 22 90 11/22/21 11:33 36.8 C 87 24 129/74 90 11/22/21 11:21 84 20 92 11/22/21 10:17 82 Laboratory Results Laboratory Results - last 24 hr 11/22/21 07:14 Sodium 138 Potassium 4.4 Chloride 104 Carbon Dioxide 25 Anion Gap 9 BUN 31 H Creatinine 1.02 Est Cr Clr Drug Dosing 68.7 Est GFR ( Amer) 84.1 Est GFR (Non-Af Amer) 72.6 BUN/Creatinine Ratio 30.4 H Glucose 169 H Calcium 9.3 Magnesium 2.0 Troponin I High Sens 1279.7 H* D PG Care Time/CCT Total # of Minutes Spent Total Time Spent with Patient: Total time spent is greater than 50% in coordination of care (as documented) at patient's floor/unit and/or counseling patient: Coding Level of Care Code 87939 Subseq Hosp Care Lvl 3 Diagnoses Acute and chronic respiratory failure with hypoxia J96.21 Severe pulmonary hypertension I27.20 Chronic obstructive pulmonary disease J44.9 NSTEMI (non-ST elevated myocardial infarction) I21.4 Adenocarcinoma of lung C34.90 Carotid stenosis I65.29 BPH (benign prostatic hyperplasia) N40.0 Aortic aneurysm I71.9 GERD (gastroesophageal reflux disease) K21.9 Hyperlipidemia E78.5 Essential tremor G25.0 Elevated troponin R77.8 Chronic right-sided congestive heart failure I50.812
[2021-11-22] MEDS: TAMSULOSIN HCL 0.4 MG CAP PO SCH (21:15)
[2021-11-23] MEDS: ALBUT/IPRATROP 3MG/0.5MG NEB 3 ML VIAL NEB SCH ×6 (02:39→22:21)
[2021-11-23] MEDS: ENOXAPARIN INJ 40 MG/0.4 ML SYR SQ SCH (07:46)
[2021-11-23] MEDS: ATORVASTATIN 40 MG TAB PO SCH (07:47)
[2021-11-23] MEDS: AZITHROMYCIN 250 MG TAB PO SCH (07:47)
[2021-11-23] MEDS: FUROSEMIDE 40 MG TAB PO SCH (07:47)
[2021-11-23] MEDS: ASPIRIN 81 MG ECTAB PO SCH (07:47)
[2021-11-23] MEDS: CLOPIDOGREL BISULFATE 75 MG TAB PO SCH (07:47)
[2021-11-23] MEDS: PANTOprazole 40 MG TAB PO SCH (07:48)
[2021-11-23] MEDS: UMECLIDINIUM/VILANTEROL 62.5/25MCG 7 PUFFS/INHALER INH SCH (07:48)
[2021-11-23 08:36] LABS: BUN Creatinine Ratio 32.7 (10-20); Calcium 9.2 mg/dl (8.5-10.1); Creatinine Clr Calc Pharmacy 69.4 ml/min; Est GFR (African American) 85.1 ml/min; Est GFR (Non-African American) 73.4 ml/min; Potassium 4.2 mmol/L (3.5-5.1)
[2021-11-23] MEDS: methylPREDNISolone 30 MG in SYRINGE 0 ML IV SCH ×2 (08:50→20:32)
--- NOTE | 2021-11-23 13:52 | Hospitalist Progress Note ---
Date of Service November 23, 2021 Assessment & Plan (1) Acute and chronic respiratory failure with hypoxia: Plan: Acute component likely combination of COPD with exacerbation, his markedly severe pulmonary HTN, and also cannot rule out element of pulmonary edema and/or infectious process. NSTEMI leading to decompensated CHF also possible given the marked elevation in the troponin. For COPD - cont IV solumedrol BID. Plan to change to PO prednisone tomorrow. For ? infectious process - zithromax. Finish 5-day course. Today is day #4. For ? pulmonary edema - lasix 40mg po daily. Of note - CTA chest today without pneumonia or edema. For pulmonary HTN - cont oxygen. For NSTEMI - supportive care. (2) Severe pulmonary hypertension: Plan: with high O2 requirement at baseline (8 L NC O2). will need to wean him to 10 L at most in order to allow safe discharge to [facility] ([facility]). (3) Chronic obstructive pulmonary disease: Plan: cont IV solumedrol and nebs (4) NSTEMI (non-ST elevated myocardial infarction): Plan: HS troponin noted (4000). NSTEMI is quite possible (had a vague chest discomfort when he did not have his O2 on at home). His EKG showed lateral ST segment depressions at time of presentation. Previous echo - 01/2021 - no wall motion abnormalities, severe RV failure. Trop peaked and came down nicely. No invastive testing in light of cancer, hospice status, and lack of symptoms. Cont asa. (5) Adenocarcinoma of lung: Plan: MANOJ. No further Rx. Hospice. (6) Carotid stenosis: (7) BPH (benign prostatic hyperplasia): Plan: PVR 150-250; most recent PVR about 150cc defer on jiménez for now cont bladder scan qshift strongly consider jiménez if urinary retention continues (PVRs>300) cont flomax 0.4mg daily (8) Aortic aneurysm: Plan: no symptoms to suggest rupture or dissection (9) GERD (gastroesophageal reflux disease): Plan: daily PPI (10) Hyperlipidemia: Plan: upon discharge to SNF with hospice would stop statin, etc (11) Essential tremor: (12) Elevated troponin: Plan: see above (13) Chronic right-sided congestive heart failure: Plan: severe right-sided cor pulmonale. suspect acute/chronic right-sided CHF -- cont lasix daily probably euvolemic at this point Plan: updated by phone yesterday evening add bactroban ointment BID to both nares for irritation nasal saline spray prn as well humidify the o2 cont to wean FiO2 as tolerated [facility] ([facility]) at discharge with hospice in place Admission and Anticipated Discharge Date Admission Date: November 19, 2021 Subjective pt c/o irritated nose/bleeding from both nares no epistaxis just small clots no change in respiratory status -- no dyspnea at rest, no cough, no chest pain eating fine tele overnight wnl Review of Systems Review of Systems: gen - no fevers cv - no cp; no orthopnea pulm - no sputum GI - no abd pain, nausea or emesis Physical Exam Physical Exam: gen - NAD, very pleasant, looks similar to yesterday mouth - MMM neck - JVD unchanged heart - RRR, s1 s2, 2/6 systolic murmur LLSB lungs - CTA b/l; no wheeze; no tachypnea; scant rales L base abd - soft NT BS+; bladder palpable in the midline (mild) ext - no edema b/l, pulses 2+ b/l psych - a/o x 3, restricted affect Results & Data Results & Data ([facility]) Vital Signs (Past 12 Hours) Vital Signs Temp Pulse Pulse Resp BP BP Pulse Ox 11/23/21 11:14 88 20 87 L 11/23/21 11:00 36.8 C 89 20 105/69 97 11/23/21 10:00 80 11/23/21 08:00 11/23/21 07:46 79 22 91 11/23/21 07:00 36.4 C L 88 18 118/63 96 11/23/21 03:26 36.4 C L 82 20 124/63 94 11/23/21 02:39 84 91 Pulse Ox 11/23/21 11:14 11/23/21 11:00 11/23/21 10:00 11/23/21 08:00 92 11/23/21 07:46 11/23/21 07:00 11/23/21 03:26 11/23/21 02:39 Laboratory Results bmp wnl Diagnostic Findings Chest X-Ray 11/19/21 01:06 XR chest 1V portable HISTORY: 71 years-old Male Dyspnea acute shortness of breath COMPARISON: Chest radiograph 10/31/2021, CTA chest 10/24/2021. TECHNIQUE: Portable AP view of the chest FINDINGS: Cardiac silhouette is enlarged. Emphysema with chronic interstitial coarsening. Irregular nodule within the left upper lobe redemonstrated. No pneumothorax. Trace pleural effusions with mild bibasilar opacities. No overt pulmonary edema. Degenerative changes of the shoulders and spine. IMPRESSION: 1. Cardiomegaly without pulmonary edema. 2. Trace pleural effusions with mild bibasilar opacities suggestive of atelectasis versus pneumonitis. 3. Emphysema. 4. Irregular left upper lobe pulmonary nodule redemonstrated. ACT 112: Negative or not required by law. The above report was generated using voice recognition software. It may contain grammatical, syntax or spelling errors. Electronically signed by: Mikey Cid M.D. 11/19/2021 6:51 AM Chest X-Ray 11/20/21 09:12 SINGLE VIEW CHEST CLINICAL HISTORY: Acute on chronic respiratory failure. FINDINGS: An AP, portable, upright chest radiograph is compared to study dated 11/19/2021 and correlated with chest CT dated 10/24/2021. The heart is enlarged noting atherosclerotic calcification of the thoracic aorta. The pulmonary vasculature is noncongested. Emphysema and chronic interstitial thickening is similar to previous. Enlargement of the central pulmonary arteries suggests pulmonary artery hypertension patchy A spiculated nodule is again seen in the left upper lobe. This was better evaluated on the recent chest CT. There is bibasilar scarring/atelectasis, left greater than right. No large pleural effusion or pneumothorax is seen. The skeletal structures are osteopenic. The bony thorax is grossly intact. IMPRESSION: 1. Cardiomegaly and emphysema with no radiographic evidence of congestive failure. 2. A spiculated nodule is again seen at the left apex. This was better characterized on the recent chest CT. 3. There is no airspace consolidation typical for pneumonia or large pleural effusion. ACT 112: Negative or not required by law. Electronically signed by: Kfofi Farley M.D. 11/20/2021 10:38 AM Venous Doppler Study 11/20/21 15:30 BILATERAL LOWER EXTREMITY VENOUS DOPPLER HISTORY: severe hypoxia; lung ca; eval DVT COMPARISON STUDY: None. FINDINGS: There is normal compressibility, flow, and augmentation within the bilateral lower extremity deep venous systems. IMPRESSION: No DVT within the right or left lower extremity. ACT 112: Negative or not required by law. Electronically signed by: Jabari Valdes M.D. 11/20/2021 4:34 PM Chest CTA 11/23/21 13:50 CT angio chest PE protocol CLINICAL HISTORY: lung ca, pulm HTN, severe hypoxia; eval PE TECHNIQUE: Multidetector row helical CT of the chest was performed with angiographic protocol. Coronal and sagittal reformations were obtained. Coronal and sagittal MIPS were obtained from the axial data set and were submitted for review. Automated dose lowering techniques and/or adjustment according to patient size were utilized for this exam. CT DOSE: 410.38 mGycm Comparison: Comparison is made to CT chest 10/24/2021 FINDINGS: Lungs and pleura: Diffuse centrilobular emphysema is seen most prominent in the upper lobes. A spiculated cavitary mass in the left upper lobe measuring 20 x 12 mm (series 4 image 236) is unchanged. Additional smaller stable nodules are seen including a 4 mm nodule in the left upper lobe (image 266), a 2 mm nodule in the right upper lobe (image 197) and a 4 mm nodule in the right upper lobe (image 162). Heart and pericardium: Heart size is normal. No pericardial effusion. Vessels: Moderate atherosclerotic changes in the aorta and coronary arteries. Mediastinum and junior: Unremarkable. Chest wall and lower neck: Unremarkable. Abdomen: Unremarkable. Bones: Degenerative changes in the thoracic spine. IMPRESSION: 1. No evidence of pulmonary embolism. 2. Multiple stable pulmonary nodules including a spiculated 20 x 12 mm nodule. This has enlarged from 10/01/[address] ACT 112: Negative or not required by law. Electronically signed by: Manolo Quiñonez M.D. 11/23/2021 4:24 PM PG Care Time/CCT Total # of Minutes Spent Total Time Spent with Patient: Total time spent is greater than 50% in coordination of care (as documented) at patient's floor/unit and/or counseling patient: Coding Level of Care Code 38644 Subseq Hosp Care Lvl 2 Diagnoses Acute and chronic respiratory failure with hypoxia J96.21 Severe pulmonary hypertension I27.20 Chronic obstructive pulmonary disease J44.9 NSTEMI (non-ST elevated myocardial infarction) I21.4 Adenocarcinoma of lung C34.90 Carotid stenosis I65.29 BPH (benign prostatic hyperplasia) N40.0 Aortic aneurysm I71.9 GERD (gastroesophageal reflux disease) K21.9 Hyperlipidemia E78.5 Essential tremor G25.0 Elevated troponin R77.8 Chronic right-sided congestive heart failure I50.812
[2021-11-23] MEDS: MUPIROCIN 2% OINT 22 GM TUBE EXT SCH ×2 (15:36→20:33)
[2021-11-23] MEDS ORDERED: OPTIRAY 320 125ml IV ONE (16:09)
--- NOTE | 2021-11-23 16:25 | CT Scan Report ---
CT angio chest PE protocol CLINICAL HISTORY: lung ca, pulm HTN, severe hypoxia; eval PE TECHNIQUE: Multidetector row helical CT of the chest was performed with angiographic protocol. Cummins l and sagittal reformations were obtained. Coronal and sagittal MIPS were obtained from the axial kale a set and were submitted for review. Automated dose lowering techniques and/or adjustment according to patient size were utilized for this exam. CT DOSE: 410.38 mGycm Comparison: Comparison is made to CT chest 10/24/2021 FINDINGS: Lungs and pleura: Diffuse centrilobular emphysema is seen most prominent in the upper lobes. A spicul ated cavitary mass in the left upper lobe measuring 20 x 12 mm (series 4 image 236) is unchanged. Add itional smaller stable nodules are seen including a 4 mm nodule in the left upper lobe (image 266), a 2 mm nodule in the right upper lobe (image 197) and a 4 mm nodule in the right upper lobe (image 162 ). Heart and pericardium: Heart size is normal. No pericardial effusion. Vessels: Moderate atherosclerotic changes in the aorta and coronary arteries. Mediastinum and junior: Unremarkable. Chest wall and lower neck: Unremarkable. Abdomen: Unremarkable. Bones: Degenerative changes in the thoracic spine. IMPRESSION: 1. No evidence of pulmonary embolism. 2. Multiple stable pulmonary nodules including a spiculated 20 x 12 mm nodule. This has enlarged fro m 10/01/[address] ACT 112: Negative or not required by law. Electronically signed by: Manolo Quiñonez M.D. 11/23/2021 4:24 PM
[2021-11-23] MEDS: TAMSULOSIN HCL 0.4 MG CAP PO SCH (20:33)
[2021-11-24] MEDS: ALBUT/IPRATROP 3MG/0.5MG NEB 3 ML VIAL NEB SCH ×6 (03:09→22:58)
[2021-11-24 06:15] LABS: Calcium 8.8 mg/dl (8.5-10.1); Creatinine Clr Calc Pharmacy 72.2 ml/min; Est GFR (African American) 89.4 ml/min; Est GFR (Non-African American) 77.1 ml/min; Potassium 4.3 mmol/L (3.5-5.1)
[2021-11-24] MEDS: ATORVASTATIN 40 MG TAB PO SCH (08:09)
[2021-11-24] MEDS: CLOPIDOGREL BISULFATE 75 MG TAB PO SCH (08:09)
[2021-11-24] MEDS: PANTOprazole 40 MG TAB PO SCH (08:09)
[2021-11-24] MEDS: ASPIRIN 81 MG ECTAB PO SCH (08:09)
[2021-11-24] MEDS: FUROSEMIDE 40 MG TAB PO SCH (08:10)
[2021-11-24] MEDS: UMECLIDINIUM/VILANTEROL 62.5/25MCG 7 PUFFS/INHALER INH SCH (08:10)
[2021-11-24] MEDS: AZITHROMYCIN 250 MG TAB PO SCH (08:10)
[2021-11-24] MEDS: MUPIROCIN 2% OINT 22 GM TUBE EXT SCH ×2 (08:10→19:47)
[2021-11-24] MEDS: predniSONE 20 MG TAB PO SCH (09:00)
[2021-11-24] MEDS: ENOXAPARIN INJ 40 MG/0.4 ML SYR SQ SCH (09:00)
[2021-11-24] MEDS: TAMSULOSIN HCL 0.4 MG CAP PO SCH (19:46)
--- NOTE | 2021-11-24 21:15 | Hospitalist Progress Note ---
Date of Service November 24, 2021 Assessment & Plan (1) Acute and chronic respiratory failure with hypoxia: Plan: Acute component likely combination of COPD with exacerbation, his markedly severe pulmonary HTN, and also cannot rule out element of pulmonary edema and/or infectious process. NSTEMI leading to decompensated CHF also possible given the marked elevation in the troponin on hospital day #1. For COPD - stop IV solumedrol. Change to PO prednisone today - start with 60mg daily. For ? infectious process - zithromax. Finish 5-day course. Today is day #5. For ? pulmonary edema - lasix 40mg po today then stop. Of note - CTA chest yesterday without pneumonia or edema. For pulmonary HTN - cont oxygen. For NSTEMI - supportive care. (2) Severe pulmonary hypertension: Plan: with high O2 requirement at baseline (8 L NC O2). he is finally at 10 L NC O2 today. this will suffice to be able to return to the [facility]. (3) Chronic obstructive pulmonary disease: Plan: cont steroids but change IV solumedrol to PO prednisone today cont O2 cont inhalers cont nebs (4) NSTEMI (non-ST elevated myocardial infarction): Plan: HS troponin noted (4000). NSTEMI is quite possible (had a vague chest discomfort when he did not have his O2 on at home). His EKG showed lateral ST segment depressions at time of presentation. Previous echo - 01/2021 - no wall motion abnormalities, severe RV failure. Trop peaked and came down nicely. No invastive testing in light of cancer, hospice status, and lack of symptoms. Cont asa. (5) Adenocarcinoma of lung: Plan: MANOJ. No further Rx. Hospice. (6) Carotid stenosis: (7) BPH (benign prostatic hyperplasia): Plan: PVRs remain <200cc change bladder scan to PRN defer on jiménez for now cont flomax 0.4mg daily (8) Aortic aneurysm: Plan: no symptoms to suggest rupture or dissection (9) GERD (gastroesophageal reflux disease): Plan: daily PPI (10) Hyperlipidemia: Plan: upon discharge to SNF with hospice would stop statin, etc (11) Essential tremor: (12) Elevated troponin: Plan: see above (13) Chronic right-sided congestive heart failure: Plan: severe right-sided cor pulmonale. suspected acute/chronic right-sided CHF -- appears compensated today. stop lasix after today's dose. Plan: updated by phone this week cont bactroban ointment BID to both nares for irritation nasal saline spray prn as well humidify the o2 dispo - [facility] ([facility]) at discharge with hospice in place Admission and Anticipated Discharge Date Admission Date: November 19, 2021 Subjective patient states that overnight he had a large clot of blood in his nose this caused some respiratory difficulty his O2 had to be turned up in response to such he ultimately was able to get the clot out no true epistaxis this am his O2 has been turned down to 10 L and he is maintaining his O2 sats in the upper 80s/90% range no other new problems Review of Systems Review of Systems: gen - eating well cv - no orthopnea; edema resolved - continues to have severe urinary frequency and incomplete emptying especially after taking PO lasix in the am GI - no nausea/emesis pulm - [place] at baseline Physical Exam Physical Exam: gen - NAD neck - JVD resolved mouth - MMM nose - dried blood R nare heart - RRR, s1 s2, 2/6 systolic murmur LLSB lungs - CTA b/l; no wheeze; no tachypnea; no rales abd - soft NT BS+ ext - no edema b/l, pulses 2+ b/l psych - a/o x 3 Results & Data Results & Data ([facility]) Vital Signs (Past 12 Hours) Vital Signs Temp Pulse Pulse Resp BP BP Pulse Ox 11/24/21 20:00 78 22 89 L 11/24/21 19:00 36.4 C L 92 H 16 111/67 91 11/24/21 16:40 91 H 11/24/21 15:09 77 20 90 11/24/21 15:06 36.7 C 82 18 116/72 90 11/24/21 12:31 75 11/24/21 11:17 72 20 92 11/24/21 10:58 36.5 C 85 20 110/67 93 Laboratory Results Laboratory Results - last 24 hr 11/24/21 05:33 Sodium 138 Potassium 4.3 Chloride 101 Carbon Dioxide 29 Anion Gap 8 BUN 31 H Creatinine 0.97 Est Cr Clr Drug Dosing 72.2 Est GFR ( Amer) 89.4 Est GFR (Non-Af Amer) 77.1 BUN/Creatinine Ratio 32.0 H Glucose 200 H Calcium 8.8 PG Care Time/CCT Total # of Minutes Spent Total Time Spent with Patient: Total time spent is greater than 50% in coordination of care (as documented) at patient's floor/unit and/or counseling patient: Coding Level of Care Code 86094 Subseq Hosp Care Lvl 2 Diagnoses Acute and chronic respiratory failure with hypoxia J96.21 Severe pulmonary hypertension I27.20 Chronic obstructive pulmonary disease J44.9 NSTEMI (non-ST elevated myocardial infarction) I21.4 Adenocarcinoma of lung C34.90 Carotid stenosis I65.29 BPH (benign prostatic hyperplasia) N40.0 Aortic aneurysm I71.9 GERD (gastroesophageal reflux disease) K21.9 Hyperlipidemia E78.5 Essential tremor G25.0 Elevated troponin R77.8 Chronic right-sided congestive heart failure I50.812
[2021-11-25] MEDS: ALBUT/IPRATROP 3MG/0.5MG NEB 3 ML VIAL NEB SCH ×5 (02:47→20:05)
[2021-11-25 07:23] LABS: BUN Creatinine Ratio 33.3 (10-20); Calcium 8.7 mg/dl (8.5-10.1); Creatinine Clr Calc Pharmacy 75.3 ml/min; Est GFR (African American) 94.1 ml/min; Est GFR (Non-African American) 81.2 ml/min; Potassium 3.8 mmol/L (3.5-5.1)
[2021-11-25] MEDS: ENOXAPARIN INJ 40 MG/0.4 ML SYR SQ SCH (08:09)
[2021-11-25] MEDS: ASPIRIN 81 MG ECTAB PO SCH (08:09)
[2021-11-25] MEDS: PANTOprazole 40 MG TAB PO SCH (08:10)
[2021-11-25] MEDS: predniSONE 20 MG TAB PO SCH (08:10)
[2021-11-25] MEDS: CLOPIDOGREL BISULFATE 75 MG TAB PO SCH (08:10)
[2021-11-25] MEDS: MUPIROCIN 2% OINT 22 GM TUBE EXT SCH ×2 (08:10→21:51)
[2021-11-25] MEDS: ATORVASTATIN 40 MG TAB PO SCH (08:10)
[2021-11-25] MEDS: UMECLIDINIUM/VILANTEROL 62.5/25MCG 7 PUFFS/INHALER INH SCH (08:11)
[2021-11-25] MEDS: TAMSULOSIN HCL 0.4 MG CAP PO SCH (21:51)
--- NOTE | 2021-11-25 22:06 | Hospitalist Progress Note ---
Date of Service November 25, 2021 Assessment & Plan (1) Acute and chronic respiratory failure with hypoxia: Plan: Acute component likely combination of COPD with exacerbation, his markedly severe pulmonary HTN, and also cannot rule out element of pulmonary edema and/or infectious process. Acute component resolved. Down to 10 L (was on 8 L prior to this admission). NSTEMI leading to decompensated CHF also possible given the marked elevation in the troponin on hospital day #1. For COPD - cont PO prednisone 60mg daily. wean every 2-3 days by 10mg. For ? infectious process - zithromax. Finished 5-day course. For ? pulmonary edema - stop lasix, no signs of decompensation today. use prn. For pulmonary HTN - cont oxygen. For NSTEMI - supportive care. (2) Severe pulmonary hypertension: Plan: with high O2 requirement at baseline (8 L NC O2). he is finally at 10 L NC O2 today. this will suffice to be able to return to the [facility]. (3) Chronic obstructive pulmonary disease: Plan: cont steroids but change IV solumedrol to PO prednisone today cont O2 cont inhalers cont nebs (4) NSTEMI (non-ST elevated myocardial infarction): Plan: HS troponin noted (4000). NSTEMI is quite possible (had a vague chest discomfort when he did not have his O2 on at home). His EKG showed lateral ST segment depressions at time of presentation. Previous echo - 01/2021 - no wall motion abnormalities, severe RV failure. Trop peaked and came down nicely. No invastive testing in light of cancer, hospice status, and lack of symptoms. Cont asa. (5) Adenocarcinoma of lung: Plan: MANOJ. No further Rx. Hospice. (6) Carotid stenosis: (7) BPH (benign prostatic hyperplasia): Plan: PVRs remain <200cc changed bladder scan to PRN defer on jiménez for now cont flomax 0.4mg daily (8) Aortic aneurysm: Plan: no symptoms to suggest rupture or dissection (9) GERD (gastroesophageal reflux disease): Plan: daily PPI (10) Hyperlipidemia: Plan: upon discharge to SNF with hospice would stop statin, etc (11) Essential tremor: (12) Elevated troponin: Plan: see above (13) Chronic right-sided congestive heart failure: Plan: severe right-sided cor pulmonale. suspected acute/chronic right-sided CHF -- appears compensated today. lasix is stopped. use prn. Plan: updated by phone this week left message for on her voicemail this evening cont bactroban ointment BID to both nares for irritation nasal saline spray prn as well humidify the o2 dispo - [facility] ([facility]) at discharge with hospice in place - tomorrow Admission and Anticipated Discharge Date Admission Date: November 19, 2021 Subjective no new issues some minor blood clot/dried blood in nares got another plug out overnight - once out his breathing was much more comfortable uneventful day today feels good otherwise eating ok Review of Systems Review of Systems: gen - overall energy ok, eating ok cv - no orthopnea; no edema pulm - mild cough, no dyspnea GI - no pain or nausea Physical Exam Physical Exam: gen - NAD neck - JVD resolved mouth - MMM heart - RRR, s1 s2, 2/6 systolic murmur LLSB lungs - CTA b/l; no wheeze; no tachypnea; no rales abd - soft NT BS+ ext - no edema b/l, pulses 2+ b/l psych - a/o x 3 Results & Data Results & Data ([facility]) Vital Signs (Past 12 Hours) Vital Signs Temp Pulse Pulse Resp BP BP Pulse Ox 11/25/21 20:06 80 20 93 11/25/21 19:15 36.3 C L 86 24 127/72 91 11/25/21 15:26 75 18 90 11/25/21 15:25 77 11/25/21 15:23 36.5 C 80 21 132/81 92 11/25/21 11:25 77 18 93 11/25/21 11:00 36.5 C 88 16 124/73 96 Laboratory Results Laboratory Results - last 24 hr 11/25/21 06:43 Sodium 139 Potassium 3.8 Chloride 101 Carbon Dioxide 32 Anion Gap 6 BUN 31 H Creatinine 0.93 Est Cr Clr Drug Dosing 75.3 Est GFR ( Amer) 94.1 Est GFR (Non-Af Amer) 81.2 BUN/Creatinine Ratio 33.3 H Glucose 140 H Calcium 8.7 PG Care Time/CCT Total # of Minutes Spent Total Time Spent with Patient: Total time spent is greater than 50% in coordination of care (as documented) at patient's floor/unit and/or counseling patient: Coding Level of Care Code 48839 Subseq Hosp Care Lvl 2 Diagnoses Acute and chronic respiratory failure with hypoxia J96.21 Severe pulmonary hypertension I27.20 Chronic obstructive pulmonary disease J44.9 NSTEMI (non-ST elevated myocardial infarction) I21.4 Adenocarcinoma of lung C34.90 Carotid stenosis I65.29 BPH (benign prostatic hyperplasia) N40.0 Aortic aneurysm I71.9 GERD (gastroesophageal reflux disease) K21.9 Hyperlipidemia E78.5 Essential tremor G25.0 Elevated troponin R77.8 Chronic right-sided congestive heart failure I50.812
[2021-11-26] MEDS: ALBUT/IPRATROP 3MG/0.5MG NEB 3 ML VIAL NEB SCH ×3 (07:16→15:10)
[2021-11-26] MEDS: PANTOprazole 40 MG TAB PO SCH (08:50)
[2021-11-26] MEDS: predniSONE 20 MG TAB PO SCH (08:50)
[2021-11-26] MEDS: UMECLIDINIUM/VILANTEROL 62.5/25MCG 7 PUFFS/INHALER INH SCH (08:50)
[2021-11-26] MEDS: ASPIRIN 81 MG ECTAB PO SCH (08:50)
[2021-11-26] MEDS: ENOXAPARIN INJ 40 MG/0.4 ML SYR SQ SCH (08:51)
[2021-11-26] MEDS: MUPIROCIN 2% OINT 22 GM TUBE EXT SCH (08:51)
[2021-11-26] MEDS: CLOPIDOGREL BISULFATE 75 MG TAB PO SCH (08:51)
[2021-11-26] MEDS: ATORVASTATIN 40 MG TAB PO SCH (08:51)
[2021-11-26 12:21] VITALS: TEMP 97.7
--- NOTE | 2021-11-26 14:13 | Discharge Summary ---
Date of Service November 26, 2021 Admission HPI Per Admitting Provider Jun Maloney is a 71yo male with history of chronic hypoxic respiratory failure on 7-9L O2 continuous, COPD, adenocarcinoma of the lung, GERD presenting with acute hypoxic respiratory failure. Patient got up this evening to go to the bathroom and got caught up on his tubing for his concentrator. He was unable to fix it and began feeling more short of breath. EMS was called - he was saturating in the 80's - placed on CPAP en route, transitioned to BiPAP upon arrival which he did not tolerated. Placed on HFNC with adequate saturations. Presently on 40L/min, 60% FiO2 saturating 92%. He reports some chest tightness and wheeze. Otherwise no complaints. Specifically denies cough, palpitations, abdominal pain, nausea, vomiting, diarrhea, constipation. po additional complaints. ER Course: Albuterol, Ativan, Solumedrol Discharge Exam gen - NAD neck - JVD resolved mouth - MMM heart - RRR, s1 s2, 2/6 systolic murmur LLSB lungs - CTA b/l; no wheeze; no tachypnea; no rales abd - soft NT BS+ ext - no edema b/l, pulses 2+ b/l psych - a/o x 3 Discharge Data Allergies Allergy/AdvReac Type Severity Reaction Status Date / Time No Known Allergies Allergy Verified 11/19/21 02:12 Consultations 11/19/21 02:16 ED Decision to Admit Stat Ordered Studies 11/20/21 15:30 US venous doppler LE BI Routine 11/23/21 13:50 CT angio chest PE protocol Routine Hospital Course (1) Acute and chronic respiratory failure with hypoxia: Acute component likely combination of COPD with exacerbation, his markedly severe pulmonary HTN, and also cannot rule out element of pulmonary edema and/or infectious process. Acute component resolved. Down to 10 L (was on 8 L prior to this admission). NSTEMI leading to decompensated CHF also possible given the marked elevation in the troponin on hospital day #1. For COPD - cont PO prednisone 60mg daily. wean every 2-3 days by 10mg. For ? infectious process - zithromax. Finished 5-day course. For ? pulmonary edema - stop lasix, no signs of decompensation today. use prn. For pulmonary HTN - cont oxygen. For NSTEMI - supportive care. (2) Severe pulmonary hypertension: with high O2 requirement at baseline (8 L NC O2). he is finally at 10 L NC O2 today. this will suffice to be able to return to the [facility]. (3) Chronic obstructive pulmonary disease: cont steroids but change IV solumedrol to PO prednisone today cont O2 cont inhalers cont nebs (4) NSTEMI (non-ST elevated myocardial infarction): HS troponin noted (4000). NSTEMI is quite possible (had a vague chest discomfort when he did not have his O2 on at home). His EKG showed lateral ST segment depressions at time of presentation. Previous echo - 01/2021 - no wall motion abnormalities, severe RV failure. Trop peaked and came down nicely. No invastive testing in light of cancer, hospice status, and lack of symptoms. Cont asa. (5) Adenocarcinoma of lung: MANOJ. No further Rx. Hospice. (6) Carotid stenosis: (7) BPH (benign prostatic hyperplasia): PVRs remain <200cc changed bladder scan to PRN defer on jiménez for now cont flomax 0.4mg daily (8) Aortic aneurysm: no symptoms to suggest rupture or dissection (9) GERD (gastroesophageal reflux disease): daily PPI (10) Hyperlipidemia: upon discharge to SNF with hospice would stop statin, etc (11) Essential tremor: (12) Elevated troponin: see above (13) Chronic right-sided congestive heart failure: severe right-sided cor pulmonale. suspected acute/chronic right-sided CHF -- appears compensated today. lasix is stopped. use prn. updated by phone this week left message for on her voicemail this evening cont bactroban ointment BID to both nares for irritation nasal saline spray prn as well humidify the o2 dispo - [facility] (SNF) at discharge with hospice in place - to holly Discharge Plan Discharge Items Reason For Visit: ACUTE ON CHRONIC HYPOXIC RESPIRATORY DISTRESS [facility] - Medications and DC Order Prescriptions: No Action Stiolto Respimat 2.5-2.5 mcg/actuation mist 2 puff inhalation DAILY Qty: 3 RF: 1 budesonide 0.25 mg/2 mL suspension for nebulization 0.25 mg inhalation BID PRN (Reason: Shortness Of Breath) Qty: 60 RF: 6 (DME) nebulizers Misc See Rx Instructions .Route Qty: 1 RF: 0 famotidine 20 mg tablet 20 mg PO QAM RF: 0 clopidogrel 75 mg tablet 75 mg PO QAM RF: 0 albuterol sulfate 90 mcg/actuation HFA aerosol inhaler 2 puff inhalation Q6H PRN (Reason: Shortness Of Breath Or Wheezing) Qty: 18 RF: 3 ipratropium-albuterol 0.5 mg-3 mg(2.5 mg base)/3 mL solution for nebulization 3 ml inhalation Q8H PRN (Reason: shortness of breath or wheezing) Qty: 180 RF: 2 aspirin 81 mg Tablet,Delayed Release (Dr/Ec) 81 mg PO QAM RF: 0 furosemide 40 mg Tablet 40 mg PO QAM Qty: 30 RF: 0 oxymetazoline [Nasal [place] (oxymetazoline)] 0.05 % [place],Non-Aerosol 1 spray NA Q12H PRN (Reason: nasal congestion) Qty: 1 RF: 0 Saline Mist 0.65 % Aerosol,[place] 2 spray NA Q8H PRN (Reason: dry nasal passages) Qty: 1 RF: 0 (DME) Oxygen Home Liters Per Minute See Rx Instructions .Route Qty: 10 RF: 0 atorvastatin 40 mg tablet 40 mg PO DAILY RF: 0 Admission Data Admit Date/Time: 11/19/21 02:39 Attending Provider: Perry Hanley Admit Provider: Sugar Patterson [facility] Other Providers: Sugar Patterson Coding Diagnoses Acute and chronic respiratory failure with hypoxia J96.21 Severe pulmonary hypertension I27.20 Chronic obstructive pulmonary disease J44.9 NSTEMI (non-ST elevated myocardial infarction) I21.4 Adenocarcinoma of lung C34.90 Carotid stenosis I65.29 BPH (benign prostatic hyperplasia) N40.0 Aortic aneurysm I71.9 GERD (gastroesophageal reflux disease) K21.9 Hyperlipidemia E78.5 Essential tremor G25.0 Elevated troponin R77.8 Chronic right-sided congestive heart failure I50.812
[2021-11-26 15:15] VITALS: O2SAT 87
[2021-11-26 16:09] VITALS: BP 124/73; PULSE 88
== END 2021-11-26 16:15 | DRG 189 ==
LOC: ED 01:00 → 2S 02:39 → SUATTDRO 02:39 → 2S 03:59